=== PATIENT | female | born 1960 | race Caucasian/White ===

== ENCOUNTER 2018-02-14 09:00 | Outpatient (RCR) | payer BC, SELFPAY | END 2018-02-14 09:01 | disposition home or self-care (01) | LOC: PT 09:00 | PROVIDERS: Family Provider Nurse Practitioner Family; PCP Internal Medicine Adolescent Medicine; Visit Provider Neurological Surgery | DX: M96.1 Postlaminectomy syndrome, not elsewhere classified (principal); M53.3 Sacrococcygeal disorders, not elsewhere classified; M51.36 Other intervertebral disc degeneration, lumbar region; M79.605 Pain in left leg; G62.9 Polyneuropathy, unspecified | CPT/HCPCS: 97010; 97014; 97033; 97110; 97140; 97164; G0283 ==

== ENCOUNTER → 2018-08-14 10:45 | Outpatient (CLI) | payer MEDICARE, BC, SELFPAY ==
--- NOTE | 2018-08-14 11:33 | CT_ITS ---
CT abdomen pelvis w con CLINICAL INDICATION: Epigastric pain, left-sided abdominal pain ITS.REASON: EPIGASTRIC PAIN ORDERING PHYSICIAN: Osmin Luna MD PATIENT AGE: 58 years COMPARISON: None TECHNIQUE: Axial images obtained with sagittal and coronal reformats. All CT scans at the facility use one or more dose reduction, viz: automated exposure control, ma/kV adjustment per patient size (including targeted exams where dose is matched to indication, i.e. head), or iterative reconstruction technique. PROCEDURE: Oral Contrast: Redicat IV Contrast: Isovue-370 . FINDINGS: No acute finding in the lung bases. The liver, spleen, adrenal glands, pancreas, and kidneys have an unremarkable appearance. No intestinal obstruction or free air. Unremarkable appendix. No evidence of diverticulitis. No inflammatory changes evident within the abdomen or pelvis. No pelvic mass abnormal fluid collection or focal inflammatory change of the pelvis. Small hyperdensity is present in both adnexal regions and could be due to prior tubal ligation. Prior posterior fusion at L5 and S1. No acute bony findings. IMPRESSION: Negative CT abdomen pelvis with no acute findings
== END ==
PROVIDERS: Family Provider Nurse Practitioner Family; PCP Internal Medicine Adolescent Medicine; Visit Provider Internal Medicine Adolescent Medicine
DX: R10.13 Epigastric pain (principal)
CPT/HCPCS: 74177; Q9967

== ENCOUNTER → 2018-09-25 08:46 | Outpatient (CLI) | payer MEDICARE, BC, SELFPAY ==
--- NOTE | 2018-09-25 08:50 | US_ITS ---
US gallbladder HISTORY: ITS.REASON: abdominal pain ORDERING PHYSICIAN: Donald Quinonez MD PATIENT AGE: 58 years Comparison: None FINDINGS: PANCREAS: Unremarkable. No obvious mass or abnormal fluid collection. No ductal dilatation LIVER: No focal liver lesions demonstrated. Homogeneous echogenicity. No intrahepatic biliary ductal dilatation evident RIGHT KIDNEY: Unremarkable. Normal size and echogenicity. No hydronephrosis GALLBLADDER: No gallstones, gallbladder wall thickening, pericholecystic fluid, or biliary dilatation. There is a small amount of sludge versus concentrated bile within the gallbladder. IMPRESSION: Small amount sludge versus concentrated bile of questionable clinical significance otherwise negative right upper quadrant ultrasound
--- NOTE | 2018-09-25 08:50 | FL_ITS ---
FL upper GI small bowel HISTORY: Generalized abdominal pain with nausea and weight loss ITS.REASON: abdominal pain ORDERING PHYSICIAN: Donald Quinonez MD PATIENT AGE: 58 years Comparison: None FINDINGS: The esophagus, stomach, and duodenum have an unremarkable appearance. There is no evidence of hiatal hernia. No ulcer or mass evident. No mucosal abnormalities apparent. There is normal peristalsis. The duodenal C-loop is nondisplaced. Examination the small bowel is unremarkable. No obstructing lesions masses or mucosal abnormalities are evident. Spot views of the terminal ileum are unremarkable. FLUOROSCOPY TIME : 2 minutes and 53 seconds. IMPRESSION: Negative upper GI and small bowel follow-through
== END ==
PROVIDERS: PCP Internal Medicine Adolescent Medicine; Visit Provider Surgery
DX: R10.9 Unspecified abdominal pain (principal)
CPT/HCPCS: 74245; 76705

== ENCOUNTER → 2018-11-19 11:40 | Outpatient (CLI) | payer MEDICARE, BC, SELFPAY ==
[2018-11-21 16:19] LABS: H. pylori Breath Test Negative (Negative)
== END ==
PROVIDERS: Visit Provider Surgery
DX: B96.81 Helicobacter pylori [H. pylori] as the cause of diseases classified elsewhere (principal); K29.70 Gastritis, unspecified, without bleeding
CPT/HCPCS: 83013

== ENCOUNTER → 2020-09-01 09:19 | Outpatient (CLI) | payer MEDICARE, SELFPAY ==
--- NOTE | 2020-09-01 09:44 | ECG_ITS ---
APPROVED REPORT Exam: Resting ECG HR:55 bpm ECG Measurements Heart Rate 55 AXES ND 132 P 61 QRSd 80 QRS 7 QT 404 T 31 QTc 386 Conclusion Sinus bradycardia Left atrial abnormality Borderline ECG Electronically signed by : Osmin Luna, 09/06/2020 09:53:54
[2020-09-01 09:54] LABS: Basophils # 0.1 K/mm3 (0-0.2); Basophils % 0.7 % (0.1-2.0); Eosinophils # 0.2 K/mm3 (0.0-0.4); Eosinophils % 1.9 % (0.1-12.0); Hematocrit 44.9 % (37.0-47.0); Hemoglobin 13.8 g/dL (12.2-16.2); Lymphocytes # 2.7 K/mm3 (0.7-4.5); Lymphocytes % 32.6 % (10-50); Mean Corpuscular HGB Conc 30.8 g/dL (31.8-35.4); Mean Corpuscular Hemoglobin 28.5 pg (27.0-31.2); Mean Corpuscular Volume 92.5 fl (81-99); Mean Platelet Volume 6.8 fl (7.4-10.4); Monocytes # 0.5 K/mm3 (0.1-1.0); Monocytes % 5.6 % (1.7-9.3); Neutrophils % 59.1 % (37.0-80.0); Platelet Count 354 K/mm3 (142-424); Red Blood Count 4.85 M/mm3 (4.20-5.40); Red Cell Distribution Width 12.9 % (11.5-17.5); White Blood Count 8.4 K/mm3 (4.8-10.8)
[2020-09-01 10:12] LABS: Hemoglobin A1C 9.3 % (4.0-6.0)
[2020-09-01 12:26] LABS: Chloride 100 mmol/L (98-107)
[2020-09-01 12:27] LABS: Potassium 4.6 mmoL/L (3.5-5.1); Sodium 137 mmol/L (136-145)
[2020-09-01 12:29] LABS: Alanine Aminotransferase 14 U/L (12-78); Albumin Level 4.4 g/dl (3.5-5.0); Albumin/Globulin Ratio 1.8 (1.1-1.8); Alkaline Phosphatase 71 U/L (38-126); Aspartate Amino Transferase 18 U/L (14-36); Bilirubin,Total 0.4 mg/dl (0.2-1.3); Blood Urea Nitrogen 23 mg/dl (7-17); Estimated Glomerular Filt Rate 50 ml/min (>60); GFR (African American) 61 ML/MIN (>60); Globulin 2.5 g/dL (1.3-3.2); Total Protein,Serum 6.9 g/dl (6.3-8.2)
[2020-09-01 12:30] LABS: Anion Gap 12.6 mEq/L (5-15); Calcium 9.7 mg/dl (8.4-10.2); Carbon Dioxide 29 mmol/L (22.0-30.0); Chol/HDL Ratio 2.7 (1-3.5); Cholesterol 202 mg/dl (140-200); Glucose 183 mg/dl (74-100); HDL Cholesterol 74 mg/dl (40-60); Triglycerides 124 mg/dl (30-150); VLDL Cholesterol 25 mg/dL (0-40)
[2020-09-01 12:42] LABS: Direct LDL Cholesterol 107.59 mg/dL (100-129)
[2020-09-01 12:44] LABS: 25-OH Vitamin D, Total 82.7 ng/mL (30-100)
[2020-09-01 13:00] LABS: Thyroid Stimulating Hormone 5.97 uIU/mL (0.465-4.68)
== END ==
PROVIDERS: Visit Provider Nurse Practitioner Family
DX: I25.10 Atherosclerotic heart disease of native coronary artery without angina pectoris (principal); R53.83 Other fatigue; I10 Essential (primary) hypertension; E03.9 Hypothyroidism, unspecified; E11.29 Type 2 diabetes mellitus with other diabetic kidney complication; E78.5 Hyperlipidemia, unspecified; M54.9 Dorsalgia, unspecified
CPT/HCPCS: 36415; 80053; 80061; 82306; 83036; 84443; 85025; 93005

== ENCOUNTER → 2020-09-18 10:17 | Outpatient (CLI) | payer MEDICARE, SELFPAY ==
[2020-09-23 03:13] LABS: H. pylori Breath Test Negative (Negative)
== END ==
PROVIDERS: Visit Provider Internal Medicine Adolescent Medicine
DX: K21.9 Gastro-esophageal reflux disease without esophagitis (principal)
CPT/HCPCS: 83013

== ENCOUNTER → 2020-10-06 09:53 | Outpatient (CLI) | payer MEDICARE, SELFPAY ==
--- NOTE | 2020-10-06 09:57 | NM_ITS ---
PROCEDURE: NM GASTRIC EMPTYING STUDY CLINICAL INDICATION: GERD,ABD PAIN COMPARISON: No exams were available for comparison TECHNIQUE: Dose 0.52 mCi technetium sulfur colloid FINDINGS: Time activity curve is generated following oral ingestion of radial labeled meal. The 1/2 emptying time is upper limits of normal at 90 minutes. Images submitted show no obvious reflux. IMPRESSION: Gastric emptying time upper limits of normal Dictated by: Ian Jospeh MD 10/06/2020 16:15 Ian Joseph MD in [place] 10/06/2020 16:15
--- NOTE | 2020-10-06 10:24 | HMH.ITSHM ---
Current Home Medications as stated by this patient Mariana Villaseñor or claims representative. []NITRO METHOCARBAMOL METFORMIN LOVASTATIN ATENOLOL ASA LISINOPRIL LEVOTHYROXINE GABAPENTIN EMPAGLIFLOZIN
== END ==
PROVIDERS: PCP Internal Medicine Adolescent Medicine; Visit Provider Internal Medicine Adolescent Medicine
DX: R10.9 Unspecified abdominal pain (principal); K21.9 Gastro-esophageal reflux disease without esophagitis
CPT/HCPCS: 78264; A9541

== ENCOUNTER → 2020-10-09 09:39 | Outpatient (CLI) | payer MEDICARE, SELFPAY ==
--- NOTE | 2020-10-09 09:44 | FL_ITS ---
PROCEDURE: FL SMALL BOWEL FOLLOW THROUGH CLINICAL INDICATION: GERD WITHOUT ESOPHAGITIS,ABD PAIN Bloating COMPARISON: DX,RF UGISB FL upper GI small bowel from 09/25/2018 TECHNIQUE: FLUOROSCOPY TIME : 1 minutes 35 seconds FINDINGS: A preliminary market consultant film shows a nondiagnostic bowel gas pattern with scattered stool and gas in the ascending: And splenic flexure. No significant small bowel dilatation is noted. There are metallic screws and laminectomy defects at the L5-S1 level from previous fusion procedure. The initial overhead film following ingestion of barium shows a grossly normal appearing stomach and descending duodenum. The 15 minutes film shows progression of barium through the jejunum to the mid ileum. The fold pattern appears normal. There is no abnormal distortion or displacement of small bowel loops. At 30 minutes there is barium opacifying the terminal ileum which appears normal. Barium mixed with stool seen in the ascending colon and hepatic flexure. A small amount of Gastrografin was added to the barium which probably partially accounts for the rather rapid transit of barium through the small bowel. Fluoroscopy show no tenderness over the terminal ileum. There was mild tenderness to palpation in the upper mid abdomen. However there is no abnormal distortion or displacement of small bowel loops. IMPRESSION: Somewhat rapid transit of barium through the small bowel but no significant small bowel abnormality is identified. Dictated by: Dr. Malachi Cano MD 10/09/2020 11:46 Dr. Malachi Cano MD in [place] 10/09/2020 11:46
== END ==
PROVIDERS: PCP Internal Medicine Adolescent Medicine; Visit Provider Internal Medicine Adolescent Medicine
DX: R10.9 Unspecified abdominal pain (principal); K21.9 Gastro-esophageal reflux disease without esophagitis
CPT/HCPCS: 74250

== ENCOUNTER 2020-10-13 09:00 | Outpatient (RCR) | payer MEDICARE, SELFPAY | END 2020-10-13 10:02 | disposition home or self-care (01) | LOC: PT 09:00 | PROVIDERS: PCP Internal Medicine Adolescent Medicine; Visit Provider Podiatrist Foot & Ankle Surgery | DX: M77.31 Calcaneal spur, right foot (principal) | CPT/HCPCS: 97010; 97014; 97035; 97110; 97140; 97163; 97164; G0283 ==

== ENCOUNTER 2020-10-13 10:00 | Outpatient (RCR) | payer MEDICARE, SELFPAY | END 2020-10-13 11:02 | disposition home or self-care (01) | LOC: PT 10:00 | PROVIDERS: PCP Internal Medicine Adolescent Medicine; Visit Provider Orthopaedic Surgery | DX: M54.2 Cervicalgia (principal); M25.512 Pain in left shoulder; M25.511 Pain in right shoulder | CPT/HCPCS: 20560; 20561; 97010; 97014; 97035; 97110; 97163; 97164; G0283 ==

== ENCOUNTER → 2020-10-22 13:26 | Outpatient (CLI) | payer MEDICARE, SELFPAY ==
[2020-10-22 16:13] LABS: Coronavirus 19 IgG Antibody Negative (Negative); Coronavirus 19 IgM Antibody Negative (Negative)
== END ==
PROVIDERS: PCP Internal Medicine Adolescent Medicine; Visit Provider Internal Medicine Gastroenterology
DX: Z01.818 Encounter for other preprocedural examination (principal); Z13.810 Encounter for screening for upper gastrointestinal disorder
CPT/HCPCS: 36415; 86328

== ENCOUNTER 2020-10-23 10:24 | Day surgery (SDC) | payer MEDICARE, SELFPAY ==
[2020-10-22 12:45] VITALS: BP 135/95; PULSE 57; RESP 16; O2SAT 99
[2020-10-22 12:49] VITALS: BMI 28.3
[2020-10-23 11:16] VITALS: BP 147/62; PULSE 61; RESP 18; TEMP 36.1; O2SAT 100
[2020-10-23 11:57] VITALS: O2SAT 97
[2020-10-23 12:01] LABS: POC Glucose,Bedside 121 (70-110)
--- NOTE | 2020-10-23 12:05 | HMH.ANESCL ---
[facility] Anesthesia Checklist - Patient Identification Patient Identification: Arm Band - Structural Data Admitted From: Home Planned Operative Procedure/s: egd Consent for Planned Operative Procedure(s) Verified: Yes Verified Documents: Surgical Consent, History and Physical - NPO Status Verified Time NPO: 00:00 - Additional verifications Anesthesia Reactions: No - Airway Assessment C-Spine Mobility Assessed: Yes (mp2) TMJ Mobility Assessed: Yes Dentition: Poor Dentition - Neurological Assessment Level of Consciousness: Awake, Alert - Anesthesia Plan Anesthesia Risk discussed: Yes Anesthesia Plan: Verified ASA Class: III Anesthesia Type: MAC [facility] History I have reviewed the patient's past medical history: Yes Medical History: Reports:: Coronary Artery Disease, Diabetes Mellitus Type 2, Hyperlipidemia, Hypertension, Palpitations Denies:: Cancer, Diabetes Mellitus Type 1, Internal Pacemaker, Lung Disease, MRSA, Seizures *Have you ever received a pneumonia vaccine?: No *Have you received a flu vaccine this season?: Yes Other Medical History: Reports: Hypothyroidism, Thyroid Disease Anesthesia experience/problems:: nac Laterality Cases: Right: Carpal Tunnel Release Other Surgeries: Yes: CABG, (x3), Open Heart Surgery, Other (lumbar fusion, L left). No: Pacemaker Amputation: No Fractures: No - *Social History Last grade of school completed: GED Smoking Status: Never smoker Alcohol Intake: never Substance Use Type: denies use *Occupational Status:: retired, disabled Housing: house Household Members: spouse *Travel in the last 8 weeks: None Family Hx:: Cancer
--- NOTE | 2020-10-23 12:14 | HMH.PROC ---
[facility] Procedure Note Procedure Note:: Upper Endoscopy Procedure Report: Esophagogastroduodenoscopy with cold biopsies Endoscopost: Rubén Overton II, MD Referring Physician: Osmin Luna M.D. Date of Procedure: October 23, 2020 Equipment: Olympus GIF 180 standard upper endoscope Sedation: MAC sedation Indications: Mrs. Villaseñor is a 60-year-old female with dyspepsia. She has epigastric and generalized abdominal pain and discomfort. She has had moderate bloating, belching, nausea and early satiety. She has some pyrosis. She reports no dysphagia, heartburn or melena. She has had no hematochezia. She has lost between 5 and 10 pounds. She does state that her bowel movements are thin and she has some excessive wiping. She reports no stress. She has had no prior gallbladder testing. She reports no family history of colon cancer. She did have a colonoscopy 3 years ago (2016) in [place] and had a single polyp (tubular adenoma x1) removed. Procedure: Prior to the procedure, a history and physical exam was performed, and patient's medications and allergies were reviewed. The risks, benefits and alternatives of the sedation and procedure were discussed with the patient. All questions were answered and informed consent was obtained. The patient was brought to the procedure room. Patient identification and proposed procedure were verified by the physician and the nurse. The patient was placed in a left lateral decubitus position and the scope was passed under direct vision. Throughout the procedure, the patient's blood pressure, pulse, and oxygen saturations were monitored continuously. The upper GI endoscopy was accomplished without difficulty. The patient tolerated the procedure well. Findings: The scope was passed directly into the upper esophagus and advanced to the third portion of the duodenum. The post bulbar duodenum and duodenal bulb were normal with normal mucosa and conniventes. The scope was withdrawn through a normal duodenal bulb and pylorus into the stomach. There was bile reflux with linear reactive gastropathy of the antrum and body of the stomach. The remainder of the antrum, body and fundus of the stomach were grossly normal. Upon retroflexion there was no hiatal hernia. 2 biopsies were taken in the antrum and along the lesser curvature for histology to rule out gastritis and/or H pylori. The scope was then withdrawn into the esophagus. There was no evidence of reflux esophagitis or Light's. There was a serrated Z-line and evidence of mild esophageal dysmotility. The remainder of the esophageal mucosa was normal. Impression: 1. Nonerosive GERD with mild esophageal dysmotility 2. Bile reflux with linear reactive gastropathy Plan: I will follow-up the biopsies. The patient does have functional dyspepsia. We will discuss dietary measures, fiber bowel regimen and additional treatment options.
[2020-10-23 12:15] VITALS: BP 115/55; PULSE 66; RESP 16; TEMP 36.1; O2SAT 98
[2020-10-23 12:25] VITALS: BP 120/56; PULSE 57; RESP 16; O2SAT 100
[2020-10-23 12:35] VITALS: BP 125/70; PULSE 67; RESP 16; O2SAT 97
[2020-10-23 13:08] VITALS: BP 158/69; PULSE 58; RESP 16; O2SAT 99
== END 2020-10-23 13:08 | disposition home or self-care (01) ==
LOC: OUTP 10:25
PROVIDERS: PCP Internal Medicine Adolescent Medicine; Visit Provider Internal Medicine Gastroenterology
PROC: 0DJ08ZZ Inspection of Upper Intestinal Tract, Via Natural or Artificial Opening Endoscopic (ICD-10-PCS; CPT 43235; principal; 2020-10-23 11:30)
DX: K21.9 Gastro-esophageal reflux disease without esophagitis (principal); K22.4 Dyskinesia of esophagus; K31.9 Disease of stomach and duodenum, unspecified; Z86.010 Personal history of colon polyps; I25.10 Atherosclerotic heart disease of native coronary artery without angina pectoris; E11.9 Type 2 diabetes mellitus without complications; I10 Essential (primary) hypertension; E78.5 Hyperlipidemia, unspecified; R00.2 Palpitations
CPT/HCPCS: 43239; 82962; 88305

== ENCOUNTER → 2021-01-25 15:25 | Outpatient (POV) | payer MEDICARE, SELFPAY | PROVIDERS: Visit Provider Nurse Practitioner Family | DX: Z00.00 Encounter for general adult medical examination without abnormal findings (principal) ==

== ENCOUNTER → 2021-04-26 15:33 | Outpatient (POV) | payer MEDICARE, SELFPAY | PROVIDERS: Visit Provider Nurse Practitioner Family | DX: Z00.00 Encounter for general adult medical examination without abnormal findings (principal) ==

== ENCOUNTER → 2021-10-27 08:05 | Outpatient (CLI) | payer MEDICARE, SELFPAY ==
--- NOTE | 2021-10-27 08:06 | CT_ITS ---
PROCEDURE: CT SINUS WO CON CLINICAL HISTORY: sinusitis Sinus drainage COMPARISON: No exams were available for comparison TECHNIQUE: Axial images obtained with sagittal and coronal reformats. All CT scans at the facility use one or more dose reduction, viz: automated exposure control, ma/kV adjustment per patient size (including targeted exams where dose is matched to indication, i.e. head), or iterative reconstruction technique. FINDINGS: In the posterior aspect of the left ethmoid sinus there is a 4 mm soft tissue density which may be related to a small globule of mucus or small polyp or retention cyst. No sinus air-fluid level is evident. No significant mucosal thickening. There is mild leftward nasal septal deviation. The OMC is are patent. No mastoid effusion. The middle ears are aerated. Unremarkable TMJs and orbits. IMPRESSION: Small cyst or a globule of mucus in the left ethmoid sinus. No significant mucosal thickening or sinus air-fluid level. Leftward nasal septal deviation. Dictated by: Ian Joseph MD 10/28/2021 11:50 Ian Joseph MD in [place] 10/28/2021 11:50
== END ==
PROVIDERS: PCP Internal Medicine Adolescent Medicine; Visit Provider Student in an Organized Health Care Education/Training Program
DX: J32.9 Chronic sinusitis, unspecified (principal)
CPT/HCPCS: 70486

== ENCOUNTER → 2022-02-17 09:25 | Outpatient (CLI) | payer MEDICARE, SELFPAY ==
--- NOTE | 2022-02-17 09:25 | US_ITS ---
FINAL REPORT CLINICAL HISTORY: RUQ pain COMPARISON: 09/25/2018 FINDINGS: RIGHT UPPER QUADRANT ULTRASOUND: Ultrasound images of right upper quadrant were obtained. Limited images of the pancreas are obscured by bowel gas. There is mild fatty infiltration of the liver. There is a small amount of sludge in the gallbladder. The common duct is normal measuring 3 mm. Limited images of right kidney are unremarkable. IMPRESSION: Mild fatty liver. Reviewed, Interpreted and Dictated by Donald Koenig III, MD Transcribed by Marium Doyle Authenticated by Donald Koenig III, MD on 02/17/2022 10:59:07 AM [facility]
== END ==
PROVIDERS: PCP Internal Medicine Adolescent Medicine; Visit Provider Surgery
DX: R10.11 Right upper quadrant pain (principal)
CPT/HCPCS: 76705

== ENCOUNTER → 2022-02-28 10:10 | Outpatient (CLI) | payer MEDICARE, SELFPAY ==
--- NOTE | 2022-02-28 10:11 | NM_ITS ---
FINAL REPORT CLINICAL HISTORY: RUQ pain 10:30AM 8.35 MCI TC CHOLETEC ENSURE FINDINGS: Sequential anterior projection images of the abdomen were obtained after the intravenous injection of 8.35 mCi technetium 99m Choletec. There is normal uptake of radiotracer by the liver. The bile ducts are visualized by 30 minutes. Gallbladder activity is seen by 60 minutes. Bowel activity is noted by 60 minutes. After 1 hour, Ensure was ingested for calculation of gallbladder ejection fraction. The gallbladder ejection fraction is 7 %, which is abnormally depressed.. IMPRESSION: No evidence of cystic duct or bile duct obstruction. Abnormally depressed gallbladder ejection fraction. Reviewed, Interpreted and Dictated by Bautista Kilpatrick MD Transcribed by Vanesa Issa Authenticated by Bautista Kilpatrick MD on 02/28/2022 02:41:39 PM [facility]
--- NOTE | 2022-02-28 10:31 | HMH.ITSHM ---
Current Home Medications as stated by this patient Mariana Villaseñor or account representative. []GABAPENTIN METHOCABOME SYNTHROID EZEMBIL LOSTRAN JARDIENCE METFORMIN
== END ==
PROVIDERS: PCP Internal Medicine Adolescent Medicine; Visit Provider Surgery
DX: R10.11 Right upper quadrant pain (principal)
CPT/HCPCS: 78226; A9537

== ENCOUNTER → 2022-03-21 08:45 | Outpatient (CLI) | payer MEDICARE, SELFPAY | PROVIDERS: Visit Provider Internal Medicine | DX: Z01.812 Encounter for preprocedural laboratory examination (principal); Z11.52 Encounter for screening for COVID-19; Z13.810 Encounter for screening for upper gastrointestinal disorder | CPT/HCPCS: C9803; U0003; U0005 ==

== ENCOUNTER 2022-03-23 09:22 | Day surgery (SDC) | payer MEDICARE, SELFPAY ==
[2022-03-21 09:57] VITALS: BMI 28.3
[2022-03-23 10:05] VITALS: BP 155/75; PULSE 73; RESP 18; TEMP 36.1; O2SAT 97
[2022-03-23 10:24] LABS: POC Glucose,Bedside 136 (70-110)
[2022-03-23 11:29] VITALS: O2SAT 97
--- NOTE | 2022-03-23 11:38 | HMH.SCOPE ---
- Procedure: Date: 03/23/22 Patient Date of :: 1960 Procedure Performed:: EGD Indications:: The patient is a 61 year old who is being seen for intermittent abdominal pain, bloating, nausea symptoms. She has history of H.pylori gastritis treated and had clearance of infection by urease breath test. She has history of a gastric emptying study that was abnormal. A recent RUQ abdominal ultrasound demonstrated mild fatty liver and small amount of gallbladder sludge. Performing Provider:: Juan Holman MD Referring Provider:: Donald Quinonez MD Sedation:: See RN notes Procedure:: The gastroscope was gently passed through the incisoral orifice into the oral cavity and under direct visualization the esophagus was intubated. The endoscope was passed down the esophagus, through the stomach, and into the duodenum. Color, texture, mucosa, and anatomy of the esophagus, stomach, and duodenum were carefully examined with the scope. Findings:: Oropharynx: normal Esophagus: normal EG Junction: measured at 37 cm Cardia: normal Fundus: normal Body: Minimal gastritis. Biopsy obtained Antrum: Minimal gastritis. Biopsy obtained Duodenal bulb: normal Duodenum (second and third portion): normal Recommendations:: Await pathology results Recommend omeprazole 20 mg once daily x 4 weeks then take as needed Can try IBGard 1-2 capsules two to three times per day before meals Recommend trial of diet with smaller portions, lower roughage and fat content for possible gastroparesis Complications:: none Estimated blood obtained (mL): 0
[2022-03-23 11:40] VITALS: BP 135/70; PULSE 79; RESP 18; TEMP 36.2; O2SAT 97
--- NOTE | 2022-03-23 11:49 | P.PN_ITS ---
[facility] Anesthesia Checklist - Structural Data Admitted From: Home Planned Operative Procedure/s: egd Consent for Planned Operative Procedure(s) Verified: Yes - Additional verifications Anesthesia Reactions: No - Airway Assessment C-Spine Mobility Assessed: Yes TMJ Mobility Assessed: Yes Dentition: Dentures-good fit - Neurological Assessment Level of Consciousness: Awake, Alert, Appropriate - Anesthesia Plan Anesthesia Risk discussed: Yes Anesthesia Plan: Verified ASA Class: II Anesthesia Type: MAC [facility] History I have reviewed the patient's past medical history: Yes Medical History: Reports:: Coronary Artery Disease, Diabetes Mellitus Type 2, Hyperlipidemia, Hypertension, Palpitations Denies:: Cancer, Diabetes Mellitus Type 1, Internal Pacemaker, Lung Disease, MRSA, Seizures *Have you ever received a pneumonia vaccine?: No *Have you received a flu vaccine this season?: Yes Other Medical History: Reports: Hypothyroidism, Thyroid Disease Anesthesia experience/problems:: none Laterality Cases: Bilateral: Carpal Tunnel Release Other Surgeries: Yes: CABG, Colonoscopy, (x3), Open Heart Surgery, Other (lumbar fusion, L left). No: Pacemaker Amputation: No Fractures: No - *Social History Last grade of school completed: GED Smoking Status: Never smoker Alcohol Intake: never Substance Use Type: denies use *Occupational Status:: unemployed, disabled Housing: house Household Members: spouse *Travel in the last 8 weeks: None Family Hx:: Cancer
[2022-03-23 11:50] VITALS: BP 145/72; PULSE 77; RESP 16; O2SAT 97
[2022-03-23 12:00] VITALS: BP 158/78; PULSE 67; RESP 16; O2SAT 98
[2022-03-23 12:28] VITALS: BP 145/71; PULSE 69; RESP 16; O2SAT 98
== END 2022-03-23 12:28 | disposition home or self-care (01) ==
LOC: OUTP 09:23
PROVIDERS: PCP Internal Medicine Adolescent Medicine; Visit Provider Internal Medicine
PROC: 0DJ08ZZ Inspection of Upper Intestinal Tract, Via Natural or Artificial Opening Endoscopic (ICD-10-PCS; CPT 43235; principal; 2022-03-23 10:30)
DX: K29.70 Gastritis, unspecified, without bleeding (principal); I25.10 Atherosclerotic heart disease of native coronary artery without angina pectoris; E11.9 Type 2 diabetes mellitus without complications; E78.5 Hyperlipidemia, unspecified; R00.2 Palpitations; E03.9 Hypothyroidism, unspecified; Z95.1 Presence of aortocoronary bypass graft; Z80.9 Family history of malignant neoplasm, unspecified; Z88.4 Allergy status to anesthetic agent; Z88.8 Allergy status to other drugs, medicaments and biological substances
CPT/HCPCS: 43239; 82962; 88305

== ENCOUNTER → 2022-07-04 12:07 | Outpatient (CLI) | payer MEDICARE, SELFPAY ==
--- NOTE | 2022-07-04 12:11 | XR_ITS ---
FINAL REPORT CLINICAL HISTORY: CELLULITIES OF RIGHT MIDDLE FINGER FINDINGS: RIGHT HAND 3 views of the right hand were obtained. There is no acute fracture or dislocation. Visualized joint spaces are normally aligned. There is mild degenerative change of the hand and wrist. There is a small calcification of the 3rd PIP joint. IMPRESSION: Degenerative change with no o acute bony abnormality. Reviewed, Interpreted and Dictated by Donald Koenig III, MD Transcribed by Nelida Proctor Authenticated and [facility]
== END ==
PROVIDERS: PCP Internal Medicine Adolescent Medicine; Visit Provider Internal Medicine Adolescent Medicine
DX: L03.011 Cellulitis of right finger (principal)
CPT/HCPCS: 73130

== ENCOUNTER → 2022-10-18 09:03 | Outpatient (CLI) | payer MEDICARE, SELFPAY ==
--- NOTE | 2022-10-18 09:03 | NM_ITS ---
FINAL REPORT CLINICAL HISTORY: Right upper quad pain 9:20AM 8.52 MCI TC CHOLETEC 1.5 MCG CCK NO PAIN WITH CCK COMPARISON: February 2022 FINDINGS: HEPATOBILIARY SCAN WITH CCK INJECTION Following intravenous administration of approximately 8.52 of technetium Choletec, multiple scintigraphic images were obtained. The hepatic parenchymal phase shows homogeneous distribution of the tracer throughout the liver. Prompt appearance of tracer is noted in the intrahepatic and extrahepatic biliary systems. The gallbladder visualizes normal. Biliary to bowel transit is within normal limits. Following intravenous injection of 1.5 mcg of CCK, gallbladder ejection fraction is estimated to be 4 %. IMPRESSION: Abnormally low gallbladder ejection fraction of 4 %. Reviewed, Interpreted and Dictated by Sisi Huggisn MD Transcribed by Mukul Ackerman Authenticated and [facility]
--- NOTE | 2022-10-18 09:22 | HMH.ITSHM ---
Current Home Medications as stated by this patient Mariana Villaseñor or insurance claims representative. []OMEPRAZOLE NITRO METHOCARBAMOL METFORMIN LOVASTATIN LISINOPRIL LEVOTHYROXINE GLIMEPIRIDE GABAPENTIN EZETIMIBE DULOXETINE ASA
== END ==
PROVIDERS: PCP Internal Medicine Adolescent Medicine; Visit Provider Surgery
DX: K82.8 Other specified diseases of gallbladder (principal)
CPT/HCPCS: 78227; A9537; J2805

== ENCOUNTER → 2022-11-10 09:57 | Outpatient (CLI) | payer MEDICARE, SELFPAY ==
--- NOTE | 2022-11-10 10:38 | ECG_ITS ---
APPROVED REPORT Exam: Resting ECG HR:74 bpm ECG Measurements Heart Rate 74 AXES OK 136 P 79 QRSd 78 QRS 76 QT 363 T 69 QTc 390 Conclusion SINUS RHYTHM LOW QRS VOLTAGE IN PRECORDIAL LEADS [QRS DEFLECTION < 1.0 mV IN CHEST LEADS] NONSPECIFIC T-WAVE ABNORMALITY BORDERLINE ECG UNCONFIRMED REPORT Electronically signed by : Osmin Luna MD 11/10/2022 20:18:05
[2022-11-10 11:08] LABS: Basophils % 0.4 % (0.1-2.0); Eosinophils # 0.1 K/mm3 (0.0-0.4); Eosinophils % 2.3 % (0.1-12.0); Hematocrit 41.3 % (37.0-47.0); Hemoglobin 12.9 g/dL (12.2-16.2); Lymphocytes # 1.9 K/mm3 (0.7-4.5); Lymphocytes % 30.6 % (10-50); Mean Corpuscular HGB Conc 31.2 g/dL (31.8-35.4); Mean Corpuscular Hemoglobin 29.3 pg (27.0-31.2); Mean Platelet Volume 7.7 fl (7.4-10.4); Monocytes # 0.3 K/mm3 (0.1-1.0); Monocytes % 5.5 % (1.7-9.3); Neutrophils # 3.8 K/mm3 (1.8-7.8); Neutrophils % 61.1 % (37.0-80.0); Platelet Count 363 K/mm3 (142-424); Red Blood Count 4.39 M/mm3 (4.20-5.40); Red Cell Distribution Width 14.5 % (11.5-17.5); White Blood Count 6.2 K/mm3 (4.8-10.8)
[2022-11-10 11:32] LABS: Alanine Aminotransferase 22 U/L (12-78); Albumin Level 4.2 g/dl (3.5-5.0); Albumin/Globulin Ratio 1.8 (1.1-1.8); Alkaline Phosphatase 79 U/L (38-126); Anion Gap 11.1 mEq/L (5-15); Aspartate Amino Transferase 36 U/L (14-36); Bilirubin,Total 0.6 mg/dl (0.2-1.3); Blood Urea Nitrogen 23 mg/dl (7-17); Calcium 9.2 mg/dl (8.4-10.2); Carbon Dioxide 27 mmol/L (22.0-30.0); Chloride 107 mmol/L (98-107); Estimated Glomerular Filt Rate 50 ml/min (>60); GFR (African American) 61 ML/MIN (>60); Globulin 2.4 g/dL (1.3-3.2); Glucose 101 mg/dl (74-100); Potassium 5.1 mmoL/L (3.5-5.1); Sodium 140 mmol/L (136-145); Total Protein,Serum 6.6 g/dl (6.3-8.2)
== END ==
PROVIDERS: PCP Internal Medicine Adolescent Medicine; Visit Provider Surgery
DX: K82.8 Other specified diseases of gallbladder (principal); Z01.818 Encounter for other preprocedural examination
CPT/HCPCS: 36415; 80053; 85025; 93005

== ENCOUNTER 2022-11-14 07:07 | Day surgery (SDC) | payer MEDICARE, SELFPAY ==
[2022-11-11 09:36] VITALS: BMI 29.2
[2022-11-14] VITALS (14 sets, daily range): BP systolic 00–194; BP diastolic 00–85; PULSE 68–96; RESP 12–18; TEMP 36.3–43; O2SAT 92–99
[2022-11-14 07:37] LABS: POC Glucose,Bedside 162 (70-110)
--- NOTE | 2022-11-14 07:40 | P.PN_ITS ---
[facility] Disclaimer: The information contained in this section may have been updated after the patient was seen, as this information can be updated by other users. Medical History Diabetes HLD (hyperlipidemia) HTN (hypertension) Hypothyroid Surgical History History of back surgery History of carpal tunnel release History of section History of colonoscopy History of foot surgery History of open heart surgery Family History Other Family history of cancer Family history of heart disease Social History Smoking Status: Never smoker alcohol intake: never substance use type: denies use current occupational status: disabled Travel in the last 8 weeks: None household members: spouse housing: house current occupational exposures/hazards: No caffeine: Yes [facility] Anesthesia Checklist Patient Identification Patient Identification: Arm Band Structural Data Admitted From: Home Planned Operative Procedure/s: Laparoscopic Cholecystectomy Consent for Planned Operative Procedure(s) Verified: Yes Verified Documents: Surgical Consent and History and Physical NPO Status Verified Time NPO: 00:00 Additional verifications Anesthesia Reactions: No Hx Blood Transfusions: No Blood Transfusion Reaction: No Airway Assessment C-Spine Mobility Assessed: Yes TMJ Mobility Assessed: Yes Dentition: Good Dentition (upper dentures removed) Neurological Assessment Level of Consciousness: Awake and Alert Anesthesia Plan Anesthesia Risk discussed: Yes Anesthesia Plan: Verified ASA Class: III Anesthesia Type: General
--- NOTE | 2022-11-14 08:58 | EXP.OP.NOTE ---
Date of procedure: 11/14/22 Pre-op Diagnosis:: Gallbladder disease Post-op Diagnosis:: Same Procedure performed:: Laparoscopic cholecystectomy Surgeon:: Donald Quinonez MD Robot Programmer(s):: 9 PREPARATION SUPERVISOR FREEZING:: Sunny Gayle Anesthesia: DAVID Estimated blood loss (mL): 30 Operative findings:: She had a somewhat distended gallbladder mostly obscured with omental adhesions. Neck of the gallbladder tapered to cystic duct. Operative note:: Patient was taken to the operating room. She was given preoperative intravenous antibiotics. In the operating room she was placed in a supine position. General anesthesia was induced via endotracheal tube. Abdomen was prepped and draped in the standard surgical fashion. Subumbilical skin incision was made within her previous laparoscopy scar and while performing abdominal wall lift Veress needle was inserted. CO2 pneumoperitoneum was achieved to 15 mmHg. 11 mm optical trocar was inserted at the umbilicus. Intraperitoneal contents were visualized. She was positioned in reverse Trendelenburg left side down. A couple of 5 mm trochars were inserted in the right upper abdomen. 10 mm trocar was inserted in the epigastrium and a previous chest tube scar. Gallbladder was identified and grasped retracted anteriorly and superiorly over the dome of the liver. Omental adhesions were taken down from the gallbladder. Infundibulum/Pink's pouch the gallbladder was retracted anterior laterally. Prolonged blunt dissection was carried out at the neck of the gallbladder and a exposing a generous portion of the cystic duct. Cystic duct and cystic artery as well as a lymph node were identified. Cystic duct was isolated, multiply clipped, and sharply divided. The neck of the gallbladder tapered somewhat to the cystic duct. Cystic artery was coagulated with KARLI ultrasonic harmonic tavares and divided. Gallbladder was dissected free from the liver in a retrograde fashion using KARLI ultrasonic harmonic tavares removing the lymph node of Calot with the gallbladder. At the completion of the procedure the gallbladder was inspected on the back table to ensure that there was a single cystic duct which was assured. Gallbladder fossa was inspected for hemostasis which was assured. Limited irrigation was performed until clear. Trochars were removed the CO2 pneumoperitoneum was evacuated. Fascia at the umbilicus was closed with a single 0 Vicryl suture. Local anesthetic was infiltrated. Anterior rectus fascia at the epigastric site was closed with a 0 Vicryl. Skin incision was closed with 4-0 Monocryl in subcuticular fashion. Dermabond and dressings were applied. Condition: stable Disposition: PACU Complications:: None immediately apparent
--- NOTE | 2022-11-14 09:20 | P.PNANES_ITS ---
[facility] Anesthesia Record Part I Anesthesia Record I Intake, IV Amount: 600 Estimated blood loss (mL): 5 Urine output (mL): 0 Blood Pressure: 194/83 SaO2: 95 Pulse Rate: 96 Respiratory Rate: 14 Temperature: 97.5 F Patient is:: Drowsy, Nasal O2 and Stable Stable to PACU at:: 09:19
[2022-11-14 09:37] LABS: POC Glucose,Bedside 140 (70-110)
--- NOTE | 2022-11-15 07:40 | EXP.ANES.II ---
[facility] Anesthesia Record Part II Anesthesia Record Part II Discharge Time: 09:58 Destination: Surgical Day Care (OP Surgery) PACU nurse assessment reviewed?: Yes Patient Condition:: Good Anesthesia Complications:: None Swallowing reflex intact?: Yes Cyanosis?: No Blood Pressure: 166/63 Pulse Rate: 83 Temperature: 97.8 F Mental Status: Alert & Oriented Pain level:: 0 Nausea and/or vomitting:: None Intake, IV Amount: 0
[2022-11-15 07:41] VITALS: BP 166/63; PULSE 83; TEMP 36.6
== END 2022-11-14 11:00 | disposition home or self-care (01) ==
PROVIDERS: PCP Internal Medicine Adolescent Medicine; Visit Provider Surgery
PROC: 0FT44ZZ Resection of Gallbladder, Percutaneous Endoscopic Approach (ICD-10-PCS; CPT 47562; principal; 2022-11-14 08:45)
DX: K82.8 Other specified diseases of gallbladder (principal); E11.9 Type 2 diabetes mellitus without complications; Z79.899 Other long term (current) drug therapy
CPT/HCPCS: 47562; 82962; 88304; 96374; J2405

== ENCOUNTER → 2023-05-03 10:55 | Outpatient (CLI) | payer MEDICARE, SELFPAY ==
--- NOTE | 2023-05-03 10:59 | XR_ITS ---
FINAL REPORT CLINICAL HISTORY: pain, swelling, no known trauma FINDINGS: Three views of the right knee reveal no evidence of fracture or dislocation. The bony alignment is normal. Mild degenerative change is present. There is no evidence of joint effusion. No localized soft tissue abnormality is identified. IMPRESSION: No acute abnormality identified. Mild degenerative changes present. Reviewed, Interpreted and Dictated by Donald Koenig III, MD Transcribed by Nadeen Albright Authenticated and [facility]
== END ==
PROVIDERS: PCP Nurse Practitioner Family; Visit Provider Nurse Practitioner Family
DX: M25.561 Pain in right knee (principal); G89.29 Other chronic pain
CPT/HCPCS: 73562

== ENCOUNTER → 2023-05-04 09:56 | Outpatient (CLI) | payer MEDICARE, SELFPAY ==
[2023-05-04 11:13] LABS: Blood Urea Nitrogen 19 mg/dl (7-17); Estimated Glomerular Filt Rate 50 ml/min (>60); GFR (African American) 61 ML/MIN (>60)
== END ==
PROVIDERS: PCP Nurse Practitioner Family; Visit Provider Surgery
DX: R10.11 Right upper quadrant pain (principal); Z01.812 Encounter for preprocedural laboratory examination
CPT/HCPCS: 36415; 82565; 84520

== ENCOUNTER → 2023-05-12 09:20 | Outpatient (CLI) | payer MEDICARE, SELFPAY ==
--- NOTE | 2023-05-12 09:20 | CT_ITS ---
FINAL REPORT TECHNIQUE: After the administration of oral and intravenous contrast, axial images were obtained through the abdomen and pelvis by computed tomography. The study was performed with techniques to keep radiation dose as low as reasonably achievable, (ALARA). Individual dose reduction techniques using automated exposure control or adjustment of mA and/or kV according to the patient's size were employed. CLINICAL HISTORY: abdominal pain COMPARISON: 08/14/2018 FINDINGS: Abdomen: The lung bases are clear. The liver parenchyma is remarkable for mild fatty infiltration. The gallbladder has been surgically resected. The spleen, pancreas, adrenals and kidneys appear unremarkable. The aorta is normal in caliber. There is no free fluid or adenopathy. There is extensive streak artifact in the lower abdomen and pelvis secondary to metallic lumbar orthopedic implants. The colon is generally decompressed which accentuates the mucosa in the descending and sigmoid segments of the colon. No definite focal abnormality is identified. Pelvis: The appendix is not identified. The urinary bladder is unremarkable. There is no free fluid or adenopathy. IMPRESSION: Mild fatty infiltration of the liver. Gallbladder is absent. The colon is generally decompressed which accentuates the mucosa in the descending and sigmoid segments of the colon. However no definite focal abnormality is identified. Reviewed, Interpreted and Dictated by Bautista Kilpatrick MD Transcribed by Nadeen Albright Authenticated and . [facility]
== END ==
PROVIDERS: PCP Nurse Practitioner Family; Visit Provider Surgery
DX: R10.11 Right upper quadrant pain (principal)
CPT/HCPCS: 74177; Q9967

== ENCOUNTER → 2023-07-04 10:49 | Outpatient (CLI) | payer MEDICARE, SELFPAY ==
--- NOTE | 2023-07-04 10:54 | XR_ITS ---
FINAL REPORT CLINICAL HISTORY: CHEST PAIN FINDINGS: TWO-VIEW CHEST The heart size is normal. The patient is status post median sternotomy. The lungs are clear. There is no pneumothorax. IMPRESSION: No acute cardiopulmonary process. Reviewed, Interpreted and Dictated by Donald Koenig III, MD Transcribed by Marium Doyle Authenticated and [facility]
== END ==
PROVIDERS: PCP Nurse Practitioner Family; Visit Provider Nurse Practitioner Family
DX: R07.89 Other chest pain (principal)
CPT/HCPCS: 71046

== ENCOUNTER 2023-07-06 10:00 | Outpatient (RCR) | payer MEDICARE, SELFPAY ==
--- NOTE | 2023-05-19 14:52 | HMH.PTOPEV ---
PT Outpatient Evaluation Rehab PT Outpatient Evaluation Start: 05/19/23 13:50 Freq: Status: Active Protocol: Document 05/19/23 13:55 DOUGALS (Rec: 05/19/23 14:52 TOMASLEONILA [id number]) E-signed By Jenny Atkinson, PT Outpatient Therapy Subjective History Subjective History Pt presents to the PT clinic with reports of R knee pain that began ~3 weeks ago. Pt reports that she does not remember a specific incident that occured. Pt reports that she noticed a fluid pouch on the inside of her R knee that began ~ 6 months ago. Pt reports difficulty with trying to get up off the floor, when she places pressure on the front of her knee it causes stinging pain into the outside of her knee into her calf. Pt reports that she also feels pain throughout the front of her knee that goes across to the inside/outside. Pt reports that it is tender to touch the outside of her knee and calf. Pt reports she had a x- ray that revealed arthritis throughout her knee. Pt reports that she has tried heat, ice and OTC medications at home with little relief. PMH: open heart surgery, HTN, diabetes, lumbar fusion Chief Complaint Pain,Gives out/Unstable, Paresthesia,Weakness Symptom Type Ache,Throb,Burning,Numbness, Tingling,Shooting Symptoms Relieved By Heat,Ice,OTC Meds Symptoms Aggravated By Bending/Stooping,Physical Activity,Twisting,Lifting Prior Functional Limitations None Current Functional Limitations Lifting,Squatting,Recreation Activity,Stairs,Bending/ Stooping Symptom Description Activity Dependent Level of pain today (0-10) 2 Pain scale - at its best (0-10) 0 Pain scale - at its worst (0-10) 9 Hip/Knee Eval Gait Observation General Gait Pattern Observation Antalgic Gait,Decrease Weight Bear (R) Assistive Device Assistive Devices None / NA Palpatio
--- NOTE | 2023-06-19 11:52 | HMH.RHREAS ---
Rehab Reassessment Rehab OP Re-assessment Start: 05/19/23 13:50 Freq: Status: Active Protocol: Document 06/19/23 11:36 SASCHATooJERZY (Rec: 06/19/23 11:52 PHORJERZY [id number]) E-signed By Efren Beach, PT Rehab Re-assessment Subjective Subjective Pt reports pain at rest currently 3/10, but continues to be 5-6/10 at least with transfers to/from the floor. Pain continues to be shooting , stinging, and burning on the lateral R LE from mid- thigh to mid-calf area. Objective Objective Notes MMT R LE: HIP FLEX 3+/5, HIP ABD 3+/5, HIP ADD 4/5, KNEE FLEX 4/5, KNEE EXT 4/5, ANKLE DF 4+/5, ANKLE INV 5/5, ANKLE EVER 5/5, ANKLE PF 5/5. Pain: At worst 6/10 with transfers, especially from floor to standing. ADL: Transfers to kneeling remain painful and difficult for all household care and recreational activites. Assessment Progress Assessment Slower Than Expected Assessment Notes Pt is showing mild improvements in strength in the R LE overall, but continues to have significant pain with transfers at home. She continues to c/o similar pain at this time that she did on her initial eval. She continues to need skilled interventions to return to prior level of function. Patient goals met none Goals Not Met ST,2,3,4,5 LT,2,3,4 ,5,6 Revised Goals none Plan Plan Continue per initial POC. Frequency of Therapy 2 x/wk Duration of therapy 4 wks Time and Billing Re-Eval Time 14 Re-Eval Billing Units 1 PHYSICIAN CERTIFICATION: I certify the specified therapy services for Mariana Villaseñor are required, authorized, and reviewed every 30 days.
== END 2023-07-06 10:05 | disposition home or self-care (01) ==
LOC: PT 10:00
PROVIDERS: PCP Nurse Practitioner Family; Visit Provider Nurse Practitioner Family
DX: M25.561 Pain in right knee (principal)
CPT/HCPCS: 97010; 97014; 97035; 97110; 97163; 97164; 97530; G0283

== ENCOUNTER → 2023-07-12 15:25 | Outpatient (CLI) | payer MEDICARE, SELFPAY ==
--- NOTE | 2023-07-12 15:29 | US_ITS ---
PROCEDURE INFORMATION: Exam: US Left Breast, Complete Exam date and time: 07/12/2023 3:33 PM Age: 63 years old Clinical indication: Patient has had left breast pain time 6 months--all mamms were done at another facility-- patient states last mamm two months ago and was negative TECHNIQUE: Imaging protocol: Complete ultrasound of all four quadrants of the left breast and the retroareolar regions, including ultrasound of the axilla when performed. COMPARISON: No relevant prior studies available. FINDINGS: Breast: Sonographic images of the left breast including the retroareolar region, all 4 quadrants and the axilla do not demonstrate any solid or cystic masses with the exception of an incidental 0.2 cm 10 o'clock periareolar cyst. No architectural distortion or acoustical shadowing. No skin thickening or axillary adenopathy. IMPRESSION: No sonographic evidence of malignancy. Annual mammographic screening is recommended unless otherwise clinically indicated. ASSESSMENT: BI-RADS Category 1: Negative
== END ==
PROVIDERS: PCP Nurse Practitioner Family; Visit Provider Nurse Practitioner Family
DX: N64.4 Mastodynia (principal)
CPT/HCPCS: 76641

== ENCOUNTER 2024-03-23 11:37 | Outpatient (CLI) | payer MEDICARE, SELFPAY ==
--- NOTE | 2024-03-23 | XR_ITS ---
PROCEDURE INFORMATION: Exam: XR Chest Exam date and time: 03/23/2024 11:33 AM Age: 63 years old Clinical indication: Cough; Additional info: Acute cough TECHNIQUE: Imaging protocol: Radiologic exam of the chest. Views: 2 views. COMPARISON: CR XR CHEST 2V 07/04/2023 11:09 AM FINDINGS: Lungs: Unremarkable. No consolidation. Pleural spaces: Unremarkable. No pleural effusion. No pneumothorax. Heart/Mediastinum: Unremarkable. No cardiomegaly. Bones/joints: Unremarkable. IMPRESSION: No acute findings.
--- OUTSIDE RECORDS SUMMARY | 2024-03-23 11:40 | XMS_ITS | Clinical Summary ---
Author Name Unknown Address [address] [place] [address] Phone Organization [facility] Address [address] [place] [address] Phone Care Team Providers Care Vocational Rehabilitation Supervisor Name Role Phone MARCIAL CHEUNG, VONDA Unavailable [phone] Danilo CHEUNG, Tj Agustin Unavailable [phone] Reason for Visit and Chief Complaint BRACE FITTING Problems Includes: Problems addressed during this encounter and other active Problems All Visits Onset Date Resolved Date Provider Condition S tatus Joint Pain in the Right Knee 07/10/2023 Art Vizcarra MD Active Last Documented On 3 1:51PM ; [facility], [facility] Neck Pain 07/07/2021 Neo Sandhu MD Active Last Documented On 1 8:43AM ; [facility] Lower Back Pain 07/07/2021 Neo Sandhu MD A ctive Last Documented On 1 8:43AM ; [facility], [facility] Joint Pain, Localized in Both Shoulders 07/21/2020 Haider Madera MD Active Last Documented On 0 3:28PM ; [facility], [facility] Joint Pain Fingers of Both Hands 05/20/2019 Isaac Carrasco MD Active Last Documented On 9 8:23AM ; [facility] Plan of Treatment Future Appointments Date Time Location [facility] Surgery Suites 04/11/2024 10:15AM Surgery Tj agustin MD Last Documented On 4 1:59PM ; [facility] Post Op 04/24/2024 8:45AM [facility] Tj Carrasco MD Last Documented On 4 2:00PM ; [facility] Assessments Includes: Assessments from this encounter No Assessments Recorded Medical Equipment - Implanted Devices Includes: Current Devices No Medical Equipment Recorded Medications Includes: Medications discussed during this encounter and other current Medications Discontinued / Stopped on this date on 10/18/2021 Levothyroxine Sodium 75 MCG Oral Tablet P rovider: Diagnosis: Last Documented On 3 10:03AM By Garth Cramer ; [facility], [facility] Losartan Potassium 50 MG Oral Tablet Prov ider: Therese Gomes APRN Diagnosis: Last Documented On 3 10:03AM By Garth Cramer ; [facility], [facility] Synthroid 75 MCG Oral Tablet Provider: IONA GALEANO MD Diagnosis: Last Documented On 3 10:03AM By Garth Cramer ; [facility] Losartan Potassium 50 MG Oral Tablet Prov ider: Diagnosis: Last Documented On 3 10:04AM By Garth Cramer ; [facility] DULoxetine HCl 30 MG Oral Ca psule Delayed Release Particles Provider: DAVIS LEDEZMAP Diagnosis: Last Documented On 3 10:04AM By Garth Cramer ; [facility] Nitrostat 0.4 MG Sublingual Tablet Sublingual Provider: Diagnosis: Last Documented On 3 10:04AM By Garth Cramer ; [facility], [facility] CVS D3 10 MCG (400 UNIT) Oral Capsule Pro vider: Diagnosis: Last Documented On 3 10:04AM By Garth Cramer ; [facility] Euthyrox 88 MCG Oral Tablet Provider: Alec Villa Diagnosis: Last Documented On 3 10:04AM By Garth Cramer ; [facility] Gabapentin 400 MG Oral Capsule Provider: JUAN DAVID COTO MD Diagnosis: Last Documented On 3 10:04AM By Garth Cramer ; [facility] Lovastatin 40 MG Oral Tablet Provider: Alec Villa Diagnosis: Last Documented On 3 10:04AM By Garth Cramer ; [facility] Methocarbamol 750 MG Oral Tablet Provider : JUAN DAVID COTO MD Diagnosis: Last Documented On 3 10:04AM By Garth Cramer ; [facility], [facility] Ezetimibe 10 MG Oral Tablet Provider: SIMRAN DEL CASTILLO MD Diagnosis: Last Documented On 3 10:04AM By Garth Cramer ; [facility], [facility] metFORMIN HCl 500 MG Oral Tablet Provider : IONA GALEANO MD Diagnosis: Last Documented On 3 10:03AM By Garth Cramer ; [facility], [facility] Current Medications (continue as prescribed) Ozempic (0.25 or 0.5 MG/DOSE ) 2 MG/1.5ML Subcutaneous Solution Pen-injector 11/29/2023 Provider: Diagnosis: Last Documented On 4 10:45AM By Natasha Figueredo ; [facility], [facility] Alpha Lipoic Acid 200 MG Oral Capsule 07/13/2023 Pro vider: KATHRYN MARISCAL MD Diagnosis: Last Documented On 3 10:03AM By Garth Cramer ; [facility], [facility] Rheumate Oral Capsule 07/13/2023 Provider: KATHRYN ARMENTA MD Diagnosis: Last Documented On 3 10:03AM By Garth Cramer ; [facility] metFORMIN HCl ER 500 MG Oral Tablet Extended Rel ease 24 Hour 07/11/2023 Provider: Diagnosis: Last Documented On 3 10:03AM By Garth Cramer ; [facility] Gabapentin 400 MG Oral Capsule 07/03/2023 Provider: JUAN DAVID COTO MD Diagnosis: Last Documented On 3 10:03AM By Garth Cramer ; [facility], [facility] DULoxetine HCl 60 MG Oral Ca psule Delayed Release Particles 07/03/2023 Provider: JUAN DAVID COTO MD Diagnosis: Last Documented On 3 10:03AM By Garth Cramer ; [facility], [facility] Medications Administered Includes: Administered Medications from this encounter No Administered Medications Recorded Results Includes: Results discussed during this encounter No Results Recorded For Specified Dates History of Present Illness Includes: History of Present Illness from this encounter No History of Present Illness Recorded Social History No Social History Recorded - Smoking Status Unknown Medical History Includes: Medical History addressed during this encounter No Medical History Recorded Family History Includes: Family History addressed during this encounter No Family History Recorded Review of Systems Includes: Review of Systems from this encounter No Review of Systems Recorded Mental Status Includes: Mental Status from this encounter No Mental Status Recorded Functional Status Includes: Functional Status from this encounter No Functional Status Recorded Physical Exam Includes: Physical Exam from this encounter No Physical Exam Recorded Allergies Includes: Active Allergies Substance Type Reaction Onset Date Resolved Date Statu s plavix Allergy 07/16/2012 Active Last Documented On 4 1:27PM ; [facility] Lipitor Allergy 05/20/2019 Active Last Documented On 4 1:27PM ; [facility] Darvocet A500 Allergy 07/16/2012 Activ e Last Documented On 4 1:27PM ; [facility] Crestor Allergy 05/20/2019 Active Last Documented On 4 1:27PM ; [facility] Insurance Includes: Active Insurance Policies Plan Name Member ID Group # Subscriber Relationship Effect ania Dates 1 - [employer] ([place] Medicare [id number] Mariana Villaseñor Self Clinical Notes Includes: Clinical Notes from this encounter No Clinical Notes Recorded
--- OUTSIDE RECORDS SUMMARY | 2024-03-23 11:40 | XMS_ITS ---
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 Name Role Phone MARCIAL CHEUNG, VONDA Unavailable [phone] Danilo CHEUNG, Tj Agustin Unavailable [phone] Reason for Referral Date Encounter Description Provider Reason for Referral 01/31/24 Follow Up Tj Carrasco MD Referra l To Physician 11/29/23 Follow Up Tj Carrasco MD Referra l To Physician 11/17/21 Follow Up Tj Carrasco MD Referra l To Physician 10/18/21 Follow Up Haider Madera MD Refe rral To Physician - to see [facility]pc for bp 09/27/21 Follow Up Haider Madera MD Refe rral To Physician - to see [facility] for bp 08/23/21 Follow Up Neo Sandhu MD Referral To Physician - to see [facility] for bp 07/12/21 Post Op Tj Carrasco MD Referra l To Physician - to see [facility] for bp 07/07/21 IN HOUSE REFERRAL Neo Sandhu MD Refe rral To Physician - to see [facility] for bp 06/07/21 Physician Specified Tj Carrasco MD Referral To Physician - to see [facility] for bp 05/27/21 Follow Up Haider Madera MD Refe rral To Physician - to see [facility] for bp 04/07/21 Follow Up Haider Madera MD Refe rral To Physician - to see [facility] for bp 01/27/21 Follow Up Haider Madera MD Refe rral To Physician - to see [facility] for bp 10/26/20 Follow Up Haider Madera MD Refe rral To Physician - to see [facility] for bp 09/23/20 Follow Up Haider Madera MD Refe rral To Physician - to see [facility] for bp 08/12/20 Follow Up Haider Madera MD Refe rral To Physician - to see [facility] for bp 07/21/20 Non Physician Specified Haider rosenberg MD Referral To Physician - to see [facility] for bp Problems Includes: Active, inactive, and resolved Problems All Visits Onset Date Resolved Date Provider Condition S tatus Joint Pain in the Right Knee 07/10/2023 Art Vizcarra MD Active Last Documented On 3 1:51PM ; [facility] Neck Pain 07/07/2021 Neo Sandhu MD Active Last Documented On 1 8:43AM ; [facility] Lower Back Pain 07/07/2021 Neo Sandhu MD A ctive Last Documented On 1 8:43AM ; [facility] Joint Pain, Localized in Both Shoulders 07/21/2020 Haider Madera MD Active Last Documented On 0 3:28PM ; [facility] Joint Pain Fingers of Both Hands 05/20/2019 Isaac Carrasco MD Active Last Documented On 9 8:23AM ; [facility] Plan of Treatment Pending Tests Order Diagnosis Results Due Ordering [facility] - MRI MRI Shoulder 10/11/21 Haider Madera MD Last Documented On 1 2:06PM ; [facility] Future Appointments Date Time Location Provi arabella [facility] Outpa tient Surgery Suites 04/11/2024 10:15AM Surgery Tj agustin MD Last Documented On 4 1:59PM ; [facility] Post Op 04/24/2024 8:45AM [facility] Tj Carrasco MD Last Documented On 4 2:00PM ; [facility] Instructions to patient Lose weight Last Documented On 4 1:27PM ; [facility] Lose weight Last Documented On 4 10:45AM ; [facility] Lose weight Last Documented On 3 10:04AM ; [facility] Lose weight Last Documented On 1 2:18PM ; [facility] Instructions for patient see pcp for bp Last Documented On 1 1:56PM ; [facility] Lose weight Last Documented On 1 11:20AM ; [facility] Instructions for patient see pcp for bp Last Documented On 1 10:31AM ; [facility] Instructions for patient see pcp for bp Last Documented On 1 10:44AM ; [facility] Instructions for patient see pcp for bp Last Documented On 1 10:35AM ; [facility] Instructions for patient see pcp for bp Last Documented On 1 10:48AM ; [facility] Instructions for patient see pcp for bp Last Documented On 1 8:41AM ; [facility] Instructions for patient see pcp for bp Last Documented On 1 2:10PM ; [facility] Instructions for patient see pcp for bp Last Documented On 1 12:55PM ; [facility] Instructions for patient see pcp for bp Last Documented On 1 11:18AM ; [facility] Instructions for patient see pcp for bp Last Documented On 1 2:46PM ; [facility] Instructions for patient see pcp for bp Last Documented On 0 9:48AM ; [facility] Instructions for patient see pcp for bp Last Documented On 0 8:55AM ; [facility] Instructions for patient see pcp for bp Last Documented On 0 9:51AM ; [facility] Instructions for patient see pcp for bp Last Documented On 0 2:48PM ; [facility] Instructions for patient see pcp for bp Last Documented On 9 1:23PM ; [facility] Instructions for patient see pcp for bp Last Documented On 9 11:23AM ; [facility] Instructions for patient to see pcp for bp Last Documented On 9 8:46AM ; [facility] Assessments Includes: Assessments for all patient encounters Findings Encounter Date Overweight NEW PROBLEM/EST PT with Tj Carrasco MD 07/19/2023 Last Documented On 4 3:26PM ; [facility] Instructions Includes: Instructions for all patient encounters Instructions to patient Lose weight Last Documented On 4 1:27PM ; [facility] Lose weight Last Documented On 4 10:45AM ; [facility] Lose weight Last Documented On 3 10:04AM ; [facility] Lose weight Last Documented On 1 2:18PM ; [facility] Instructions for patient see pcp for bp Last Documented On 1 1:56PM ; [facility] Lose weight Last Documented On 1 11:20AM ; [facility] Instructions for patient see pcp for bp Last Documented On 1 10:31AM ; [facility] Instructions for patient see pcp for bp Last Documented On 1 10:44AM ; [facility] Instructions for patient see pcp for bp Last Documented On 1 10:35AM ; [facility] Instructions for patient see pcp for bp Last Documented On 1 10:48AM ; [facility] Instructions for patient see pcp for bp Last Documented On 1 8:41AM ; [facility] Instructions for patient see pcp for bp Last Documented On 1 2:10PM ; [facility] Instructions for patient see pcp for bp Last Documented On 1 12:55PM ; [facility] Instructions for patient see pcp for bp Last Documented On 1 11:18AM ; [facility] Instructions for patient see pcp for bp Last Documented On 1 2:46PM ; [facility] Instructions for patient see pcp for bp Last Documented On 0 9:48AM ; [facility] Instructions for patient see pcp for bp Last Documented On 0 8:55AM ; [facility] Instructions for patient see pcp for bp Last Documented On 0 9:51AM ; [facility] Instructions for patient see pcp for bp Last Documented On 0 2:48PM ; [facility] Instructions for patient see pcp for bp Last Documented On 9 1:23PM ; [facility] Instructions for patient see pcp for bp Last Documented On 9 11:23AM ; [facility] Instructions for patient to see pcp for bp Last Documented On 9 8:46AM ; [facility] Medical Equipment - Implanted Devices Includes: Current and historical Devices No Medical Equipment Recorded Medications Includes: Current and historical Medications Current Medications (continue as prescribed) Ozempic (0.25 or 0.5 MG/DOSE ) 2 MG/1.5ML Subcutaneous Solution Pen-injector 11/29/2023 Provider: Diagnosis: Last Documented On 4 10:45AM By Natasha Figueredo ; [facility] Alpha Lipoic Acid 200 MG Oral Capsule 07/13/2023 Pro vider: KATHRYN MARISCAL MD Diagnosis: Last Documented On 3 10:03AM By Garth Cramer ; [facility] Rheumate Oral Capsule 07/13/2023 Provider: KATHRYN ARMENTA MD Diagnosis: Last Documented On 3 10:03AM By Garth Cramer ; [facility] metFORMIN HCl ER 500 MG Oral Tablet Extended Rel ease 24 Hour 07/11/2023 Provider: Diagnosis: Last Documented On 3 10:03AM By Garth Cramer ; [facility], [facility] Gabapentin 400 MG Oral Capsule 07/03/2023 Provider: JUAN DAVID GALICIA MD Diagnosis: Last Documented On 3 10:03AM By Garth Cramer ; [facility] DULoxetine HCl 60 MG Oral Ca psule Delayed Release Particles 07/03/2023 Provider: JUAN DAVID GALICIA MD Diagnosis: Last Documented On 3 10:03AM By Garth Cramer ; [facility] Past Medications on file Ativan 1 MG Oral Tablet 07/18/2023 - 07/19/2023 Provid er: Art Vizcarra MD Diagnosis: take as directed; Take 1 tab let 1 hour before MRI; May take an additional tablet if needed. Last Documented On 3 3:09PM By Dr. Vizcarra ; [facility] Levothyroxine Sodium 75 MCG Oral Tablet 10/18/2021 - 0 07/19/2023 Provider: Diagnosis: Last Documented On 3 10:03AM By Garth Cramer ; [facility] Losartan Potassium 50 MG Oral Tablet 10/18/2021 - 07/19/2023 Provider: Therese peng APRN Diagnosis: Last Documented On 3 10:03AM By Garth Cramer ; [facility] Synthroid 75 MCG Oral Tablet 10/18/2021 - 07/19/2023 P nicole: IONA GALEANO MD Diagnosis: Last Documented On 3 10:03AM By Garth Cramer ; [facility] Losartan Potassium 50 MG Oral Tablet 09/27/2021 - 06/22 Provider: Diagnosis: Last Documented On 3 10:04AM By Garth Cramer ; [facility] HYDROcodone-Acetaminophen 7. 5-325 MG Oral Tablet 06/24/2021 - 10/18/2021 Provider: Tj Carrasco MD Diagnosis: 1 q 6 hours prn pain Last Documented On 1 11:04AM By Therese Swan ; [facility] DULoxetine HCl 30 MG Oral Capsule Delayed Release Particles 11/26/2020 - 07/19/2023 Provider: DAVIS VAN [employer] Diagnosis: Last Documented On 3 10:04AM By Garth Cramer ; [facility] Nitrostat 0.4 MG Sublingual Tablet Sublingual 07/21/20 20 - 07/19/2023 Provider: Diagnosis: Last Documented On 3 10:04AM By Garth Cramer ; [facility] Lovastatin 40 MG Oral Tablet 07/21/2020 - 10/18/2021 P rovider: VONDA CEJA MD Diagnosis: Last Documented On 1 11:19AM By Carmen Fleming ; [facility] CVS D3 10 MCG (400 UNIT) Oral Capsule 07/21/2020 - Provider: Diagnosis: Last Documented On 3 10:04AM By Garth Cramer ; [facility] Levothyroxine Sodium 88 MCG Oral Tablet 07/21/2020 - 1 12/18/2020 Provider: Diagnosis: Last Documented On 1 11:19AM By Carmen Fleming ; [facility] Euthyrox 88 MCG Oral Tablet 07/15/2020 - 07/19/2023 Pr ovider: Alec Villa Diagnosis: Last Documented On 3 10:04AM By Garth Cramer ; [facility] Gabapentin 400 MG Oral Capsule 07/08/2020 - 07/19/2023 Provider: JUAN DAVID GALICIA MD Diagnosis: Last Documented On 3 10:04AM By Garth Cramer ; [facility] Lovastatin 40 MG Oral Tablet 07/07/2020 - 07/19/2023 P nicole: Alec Villa Diagnosis: Last Documented On 3 10:04AM By Garth Cramer ; [facility] Methocarbamol 750 MG Oral Tablet 07/06/2020 - 07/19/20 Provider: JUAN DAVID GALICIA MD Diagnosis: Last Documented On 3 10:04AM By Garth Cramer ; [facility] Ezetimibe 10 MG Oral Tablet 06/08/2020 - 07/19/2023 Pr ovider: SIMRAN DEL CASTILLO MD Diagnosis: Last Documented On 3 10:04AM By Garth Cramer ; [facility] Lisinopril 10 MG Oral Tablet 05/22/2020 - 10/18/2021 P nicole: IONA GALEANO MD Diagnosis: Last Documented On 1 11:20AM By Carmen Fleming ; [facility] metFORMIN HCl 500 MG Oral Tablet 05/08/2020 - 07/19/20 23 Provider: IONA GALEANO MD Diagnosis: Last Documented On 3 10:03AM By Garth Cramer ; [facility] Ibuprofen 400 MG OR TABS 07/13/2019 - 10/18/2021 Provi arabella: Tj Carrasco MD Diagnosis: for post op pain Last Documented On 1 11:04AM By Therese Swan ; [facility] Diclofenac Sodium 1% Transdermal Gel 04/25/2019 - 07/21/2020 Provider: Endy MORANM Diagnosis: Last Documented On 0 3:26PM By Sophia Dennison ; [facility] Nitroglycerin 0.4MG Sublingu al Tablet Sublingual 03/28/2019 - 05/20/2019 Provider: SIMRAN Greenfield Diagnosis: Last Documented On 9 8:39AM By Sophia Hummel-Jasper ; [facility] Methocarbamol 750MG Oral Tablet 03/25/2019 - 0 Provider: JUAN DAVID GALICIA MD Diagnosis: Last Documented On 0 3:27PM By Sophia Dennison ; [facility] Gabapentin 400MG Oral Capsule 03/21/2019 - 07/21/2020 Provider: JUAN DAVID GALICIA MD Diagnosis: Last Documented On 0 3:26PM By Sophiamiranda Dennison ; [facility] Lovastatin 40MG Oral Tablet 03/18/2019 - 07/21/2020 Pr ovider: VONDA CEJA MD Diagnosis: Last Documented On 0 3:27PM By Sophiamiranda Dennison ; [facility] Lisinopril 10MG Oral Tablet 03/18/2019 - 07/21/2020 Pr ovider: IONA GALEANO MD Diagnosis: Last Documented On 0 3:26PM By Sophiamiranda Dennison ; [facility] Levothyroxine Sodium 88MCG Oral Tablet 03/05/2019 - Provider: Diagnosis: Last Documented On 0 3:27PM By Sophia Jesi ; [facility] Lansoprazole 30MG Oral Capsule Delayed Release 0 02/24/2019 - 07/21/2020 Provider: Diagnosis: Last Documented On 0 3:26PM By Sophia Hummel-Jasper ; [facility] metFORMIN HCl 500MG Oral Tablet 02/24/2019 - 0 Provider: IONA GALEANO MD Diagnosis: Last Documented On 0 3:27PM By Sophiamiranda Hummel-Jasper ; [facility] Atenolol 25MG Oral Tablet 02/24/2019 - 07/21/2020 Prov ider: SIMRAN DEL CASTILLO MD Diagnosis: Last Documented On 0 3:26PM By Sophiamrianda Hummel-Jasper ; [facility] Jardiance 25MG Oral Tablet 12/24/2018 - 05/20/2019 Pro vider: IONA GALEANO MD Diagnosis: Last Documented On 9 8:40AM By Sophia Hummel-Jasper ; [facility] Esau Aspirin 325 MG OR TABS 08/27/2012 - 05/20/2019 Mazin rivera: Diagnosis: Last Documented On 9 8:25AM By Sophia Hummel-Jasper ; [facility] GNP Vitamin E 200 UNIT OR CAPS 08/27/2012 - 05/20/2019 Provider: Diagnosis: Last Documented On 9 8:25AM By Sophia Hummel-Jasper ; [facility] Pravastatin Sodium 40 MG OR TABS 08/27/2012 - 05/20/20 19 Provider: Diagnosis: Last Documented On 9 8:25AM By Sophia Dennison ; [facility] Zetia 10 MG OR TABS 08/27/2012 - 05/20/2019 Provider: Diagnosis: Last Documented On 9 8:25AM By Sophia Dennison ; [facility] CVS Flaxseed Oil 1000 MG OR CAPS 08/27/2012 - 05/20/20 19 Provider: Diagnosis: Last Documented On 9 8:25AM By Sophia Hummel-Jasper ; [facility] CVS Vitamin C 500 MG OR TABS 08/27/2012 - 05/20/2019 P rovider: Diagnosis: Last Documented On 9 8:25AM By Sophia Dennison ; [facility] glyBURIDE 5 MG OR TABS 08/27/2012 - 05/20/2019 Provide r: Diagnosis: Last Documented On 9 8:25AM By Sophia Dennison ; [facility] Levothyroxine Sodium 50 MCG OR TABS 08/27/2012 - 05/20 Provider: Diagnosis: Last Documented On 9 8:25AM By Sophia Dennison ; [facility] Fish Oil 1200 MG OR CAPS 08/27/2012 - 05/20/2019 Provi arabella: Diagnosis: Last Documented On 9 8:25AM By Sophia Dennison ; [facility] Lisinopril 20 MG OR TABS 08/27/2012 - 05/20/2019 Provi arabella: Diagnosis: Last Documented On 9 8:25AM By Sophia Dennison ; [facility] Medications Administered Includes: Administered Medications in patient's chart No Administered Medications Recorded Vital Signs Includes: Vital Signs from 03/23/2023 through 03/23/2024 Vital Name 01/31/2024 01:28P 11/29/2023 10:45A 07/25/2023 10:49A 07/19/2023 10:15A 07/10/2023 01:51P Height (in) 64 64 64 64 64 Weight (lb) 165 165 185 183 185 Body Mass Index 28.3 28.3 31.8 31.4 31.8 Body Surface Area 1.8 1.8 1.9 1.9 1.9 Note: bh BH mg dp Last Documented: On 01/31/2024 1:28PM ; [facility] On 11/29/2023 10:45AM ; [facility] On 07/25/2023 10:49AM ; [facility] On 07/19/2023 10:15AM ; [facility] On 07/10/2023 2:02PM ; [facility] Results Includes: Results from 03/23/2023 through 03/23/2024 No Results Recorded For Specified Dates History of Present Illness History of Present Illness not supported for this document type No History of Present Illness Recorded Social History Description Last Updated Tobacco non-user 02/06/2024 Last Documented On 4 3:26PM ; [facility] No recent change in diet 02/06/2024 Last Documented On 4 3:26PM ; [facility] Not a current smoker. 02/06/2024 Last Documented On 4 3:26PM ; [facility] Non-smoker 11/17/2021 Last Documented On 1 2:02PM ; [facility] Exercising regularly 2-3 times a week Last Documented On 1 10:47AM ; [facility] No caffeine use 08/23/2021 Last Documented On 1 10:47AM ; [facility] No recent change in diet 08/23/2021 Last Documented On 1 10:47AM ; [facility] Not a current smoker. 07/21/2020 Last Documented On 0 4:01PM ; [facility] No tobacco use 07/21/2020 Last Documented On 0 4:01PM ; [facility] Not a current smoker 07/21/2020 Last Documented On 0 4:01PM ; [facility] Not using alcohol 07/21/2020 Last Documented On 0 4:01PM ; [facility] Not using drugs 07/21/2020 Last Documented On 0 4:01PM ; [facility] Smoking status : Never smoker 07/21/2020 Last Documented On 0 4:01PM ; [facility] Procedures and Surgical History Includes: Procedures from 03/23/2023 through 03/23/2024 Procedures Code Diagnosis Performing Provider Service Location Service Date Triamcinolone/Mukul alog, 10mg per cc J3301 Trigger finger, right middle finger Tj Carrasco MD [facility] 11/29/2023 Last Documented On 4 11:19AM ; [facility] INJ TENDON SHEATH/LIGAMENT (RIGHT) 30492 Trigger finger, right middle finger Tj Carrasco MD [facility] 11/29/2023 Last Documented On 4 11:19AM ; [facility] INJ TENDON SHEATH/LIGAMENT (Distinct procedure, RIGHT HAND, THIRD DIGIT) 53229 Pain in right finger(s) Tj Carrasco MD [facility] 07/19/2023 Last Documented On 3 11:37AM ; [facility] Comfort Cool Splint A4466 Unil primary osteoarth of first carpometacarp joint, l hand Tj Carrasco MD [facility] 07/19/2023 Last Documented On 3 2:39PM ; [facility] Triamcinolone/Kenalog, 10mg per cc J3301 Pain in right finger(s) Tj Carrasco MD [facility] 07/19/2023 Last Documented On 3 8:36AM ; [facility] X-RAY EXAM OF FINGER(S) 2-3 VIEWS (LEFT) 07389 Unil primary osteoarth of first carpometacarp joint, l hand Tj Carrasco MD [facility] 07/19/2023 Last Documented On 3 8:36AM ; [facility] X-RAY EXAM OF FINGER(S) 2-3 VIEWS (RIGHT) 26446 Unil primary osteoarth of first carpometacarp joint, r hand Tj Carrasco MD [facility] 07/19/2023 Last Documented On 3 8:36AM ; [facility] DRAIN/INJECT, JOINT/BURSA (Bilateral Procedure) Bilateral primary osteoarth of first carpometacarp joints Tj Carrasco MD [facility] 07/19/2023 Last Documented On 3 8:36AM ; [facility] MRI JNT OF LWR EXTRE W/O DYE (RIGHT) 63397 Pain in right knee Art Vizcarra MD [facility] 07/19/2023 Last Documented On 3 7:55AM ; [facility] X-RAY EXAM KNEE 4 OR MORE (RIGHT) 37820 Pain in right knee Art Vizcarra MD [facility] 07/10/2023 Last Documented On 3 1:21PM ; [facility] Surgical History Last Updated History of back surgery 07/21/2020 Last Documented On 0 4:01PM ; [facility] History of heart surgery 07/21/2020 Last Documented On 0 4:01PM ; [facility] Medical History Includes: Medical History in patient's chart Description Last Updated Recent immunization for flu 08/20/2020 1 Last Documented On 1 10:47AM ; [facility] Past Surgical History: 07/16 Right CTR @ [facility] [place] ~06/29/2021 Left CTR with transposition @ [facility] [place] 07/12/2021 Last Documented On 1 4:27PM ; [facility] Past surgical history non-contributory: Foot & hand sx 07/21/2020 Last Documented On 0 4:01PM ; [facility] Arthritis 07/21/2020 Last Documented On 0 4:01PM ; [facility] Back surgery 07/21/2020 Last Documented On 0 4:01PM ; [facility] Heart surgery 07/21/2020 Last Documented On 0 4:01PM ; [facility] Hypertension 07/21/2020 Last Documented On 0 4:01PM ; [facility] No recent immunization for pneumococcal pneumonia 07/21/2020 Last Documented On 0 4:01PM ; [facility] Thyroid Disease 07/21/2020 Last Documented On 0 4:01PM ; [facility] A recent injection 07/21/2020 Last Documented On 0 4:01PM ; [facility] Arthritic joint problems 07/21/2020 Last Documented On 0 4:01PM ; [facility] History of diabetes mellitus 07/21/2020 Last Documented On 0 4:01PM ; [facility] History of heart disease 07/21/2020 Last Documented On 0 4:01PM ; [facility] Intermittent hypertension 07/21/2020 Last Documented On 0 4:01PM ; [facility] Thyroid disease 07/21/2020 Last Documented On 0 4:01PM ; [facility] Family History Includes: Family History in patient's chart Description Last Updated Family history of cancer 08/25/2021 Last Documented On 1 10:47AM ; [facility] Diabetes mellitus 08/23/2021 Last Documented On 1 10:47AM ; [facility] Family history of heart disease 08/23/20 21 Last Documented On 1 10:47AM ; [facility] Fraternal history of diabetes mellitus 0 07/21/2020 Last Documented On 0 4:01PM ; [facility] Fraternal history of family history of h eart disease 07/21/2020 Last Documented On 0 4:01PM ; [facility] Maternal history of family history of ca ncer 07/21/2020 Last Documented On 0 4:01PM ; [facility] Review of Systems Review of Systems not supported for this document type No Review of Systems Recorded Mental Status Description No anxiety Functional Status No Functional Status Recorded Physical Exam Physical Exam not supported for this document type No Physical Exam Recorded Immunizations Includes: Immunizations in patient's chart Vaccine Dose # Date Site Reaction(s) Status Source Influenza 1 09/20/2020 Complete (Reported) Patient Last Documented On 0 9:03AM ; [facility] Influenza 2 08/20/2021 Complete (Reported) Patient Last Documented On 1 11:19AM ; [facility] PCV (Pneumovax 23) 1 04/07/2021 Complete (Refused - Patient objection) [facility] Last Documented On 1 11:22AM ; [facility] Td 1 04/07/2021 Complete (Refused - Patient objection) [facility] Last Documented On 1 11:22AM ; [facility] Allergies Includes: Active, inactive, and resolved Allergies Substance Type Reaction Onset Date Resolved Date Statu s plavix Allergy 07/16/2012 Active Last Documented On 4 1:27PM ; [facility] Lipitor Allergy 05/20/2019 Active Last Documented On 4 1:27PM ; [facility] Darvocet A500 Allergy 07/16/2012 Activ e Last Documented On 4 1:27PM ; [facility] Crestor Allergy 05/20/2019 Active Last Documented On 4 1:27PM ; [facility] Encounters Includes: Encounters from 03/23/2023 through 03/23/2024 Encounter Provider Location Date Check-In Time Check-Out Time Diagnosis Follow Up Tj Carrasco MD [facility] 01/31/20 24 1:24PM 1:45PM Follow Up Tj Carrasco MD [facility] 11/29/19 24 10:36AM 11:02AM Follow Up Art Vizcarra MD [facility] 07/25/20 23 10:10AM 11:38AM MRI [facility] 07/19/20 23 2:04PM 2:19PM NEW PROBLEM/EST PT Tj Carrasco MD [facility] 07/19/20 23 10:00AM 10:59AM Overweight [employer] [employer] Tj Carrasco MD [facility] 07/19/20 23 07/25/2023 9:56AM 07/25/2023 11:59PM Physician Specified Art Vizcarra MD [facility] 07/10/20 23 1:45PM 3:40PM Insurance Includes: Active Insurance Policies Plan Name Member ID Group # Subscriber Relationship Effect ania Dates 1 - [employer] ([place] Medicare [id number] Mariana Villaseñor Self Clinical Notes Includes: Signed Clinical Notes starting from 11/03/2022 * Progress note Date Encounter Last Documented by 01/31/2024 Follow Up Last documented on 02/05/2024; 6:49 PM, Tj Carrasco MD; [facility], [facility] Active Problems & Conditions - Joint Pain Fingers of Both Hands - Joint Pain in the Right Knee - Joint Pain, Localized in Both Shoulders - Lower Back Pain - Neck Pain Chief Complaint The Chief Complaint is: Left thumb pain/R middle finger pain. Referred Here Referred by pcp. History of Present Illness Mariana Villaseñor is a 63 year old female. - Allergy list reviewed - Problem list reviewed - Medication list reviewed Patient is here today for follow up for RLF trigger finger. She states the injection she received at her previous appointment helped her symptoms however the digit still clicks. She reports she has noticed numbness in the RSF, RRF, and RLF. She has previously undergone R CTR in 2019. Current Medication - Alpha Lipoic Acid 200 MG Oral Capsule Capsule, conventional 30 days, 0 refills - DULoxetine HCl 60 MG Oral Capsule Delayed Release Particles Capsule, delayed-release particles 90 days, 0 refills - Gabapentin 400 MG Oral Capsule Capsule, conventional 90 days, 0 refills - metFORMIN HCl ER 500 MG Oral Tablet Extended Release 24 Hour Tablet, extended-release 24 hour 90 days, 0 refills - Ozempic (0.25 or 0.5 MG/DOSE) 2 MG/1.5ML Subcutaneous Solution Pen-injector once a day 0 days, 0 refills - Rheumate Oral Capsule Capsule, conventional 90 days, 0 refills Past Medical/Surgical History Reported: Medical: Thyroid disease and joint problems arthritic. Intermittent hypertension. Medications: A recent injection. Immunization History: Recent immunization for flu 08/20/2020. No recent immunization for pneumococcal pneumonia. Diagnoses: Heart disease. Thyroid Disease Hypertension. Diabetes mellitus. Arthritis Past surgical history non-contributory: Foot & hand sx. Surgical: - Heart surgery - Heart surgery - Past Surgical History: 07/16/2019 Right CTR @ [facility] [place] 06/29/2021 Left CTR with transposition @ [facility] [place] - Back surgery - Back surgery Social History Not a current smoker. Current diet: No recent change in diet. Caffeine use: No caffeine use. Tobacco use: No tobacco use and not a current smoker. Non-smoker. Smoking status: Never smoker. Alcohol: Not using alcohol. Drug Use: Not using drugs. Habits: Exercising regularly 2-3 times a week. Allergies - Crestor - Darvocet A500 - Lipitor - plavix Family History Cancer Heart disease Diabetes mellitus Maternal: Cancer Fraternal: Heart disease Diabetes mellitus Review Of Systems Systemic: Not feeling tired, no recent weight loss, and no recent weight gain. Head: No headache and no sinus pain. Eyes: No vision problems, no Cataracts, no Glasses/Contacts, and no Glaucoma. Otolaryngeal: No hearing loss and no tinnitus. Cardiovascular: No chest pain or discomfort, no palpitations, no Hypertension, and no High Cholesterol. Pulmonary: No daytime asthma symptoms and no chronic cough. No wheezing. Gastrointestinal: No heartburn and no abdominal pain. No Indigestion, no Acid Reflux, no Peptic Ulcer, no GI Stomach Bleed, and no Ulcers. Endocrine: No hot flashes, no muscle weakness, no Diabetes, no Hypothyroid, and no Hyperthyroid. Hematologic: No easy bleeding, no tendency for easy bruising, and no Anemia. Musculoskeletal: No Arthritis and no lower back pain. No soft tissue swelling and no localized joint pain. Neurological: No dizziness, no convulsions, and no numbness. Psychological: No anxiety, no emotional lability, no depression, and no insomnia. Not crying for no reason. Skin: No dry skin. No Ulcers, no Scars, and no rash. Allergic and Immunologic: No complaint of seasonal allergic reaction. reviewed 01/31/24 The patient is awake alert oriented in time place and person. Has normal mood and affect. Is neatly dressed. Has normal gait and station. Pupils are equal and react to light normally. Eyes move normally. Mucous membranes are moist. The patient has no trouble with speech. Normal circulation. No thenar or intrinsic atrophy. Normal strength. Tender RLF A1 sylvia. Physical Findings - Vitals taken 01/31/2024 01:28 pm bh Height 64 in 59 - 78 Weight 165 lbs 96 - 178 Body Mass Index 28.3 kg/m2 Body Surface Area 1.8 m2 Tests EMG/nerve conduction study from March 2000 19 Showed Carpal Tunl. syndrome and cubital tunnel syndrome on the left Previous Tests Imaging: X-Ray: An X-ray was performed. Therapy - Referral to physician. Counseling/Education - Lose weight Plan I explained to the patient that the diagnosis is RLF TF as well as R cubital tunnel release. I have discussed the options with the patient. One being trying another injection guidance to ensure accuracy. We also discussed surgery to repair this. I explained the procedure and recovery to the patient. Given the duration of the symptoms the patient would like to proceed with surgery. The patient understands the risk of surgery to include but are not limited to infection, possible nerve damage, tendon or vessel injury, scar sensitivity and anesthesia.The patient understands the need for postoperative rehabilitation and therapy. The patient had no further questions regarding the surgery or potential risks. We will schedule the patient for RLF TFR abd R cubital tunnel release with ulnar nerve transposition under ax block anesthesia. We will see the patient back postop. Practice Management Use of tobacco assessment performed. Care Team - VONDA CEJA MD - [facility] APPR[facility]ER Notes This dictation was done with voice recognition software and may contain errors and omissions. transcribed by Remy Mccormick * Progress note Date Encounter Last Documented by 11/29/2023 Follow Up Last documented on 12/05/2023; 1:24 PM, Tj Carrasco MD; [facility] Active Problems & Conditions - Joint Pain Fingers of Both Hands - Joint Pain in the Right Knee - Joint Pain, Localized in Both Shoulders - Lower Back Pain - Neck Pain Chief Complaint The Chief Complaint is: Left thumb pain/R middle finger pain. Referred Here Referred by pcp. History of Present Illness Mariana Villaseñor is a 63 year old female. - Problem list reviewed - Medication list reviewed Patient is here today for follow up for RLF pain. She states the injections she received into the bilateral thumb CMCJ's and the RLF A1 sylvia in June helped her symptoms, however she continues to notice pain in the RLF with triggering. She denies any numbness in the fingers. She has previously undergone L carpal and cubital tunnel release in Jun. She feels aching in the left elbow. Current Medication - Alpha Lipoic Acid 200 MG Oral Capsule 30 days, 0 refills - DULoxetine HCl 60 MG Oral Capsule Delayed Release Particles 90 days, 0 refills - Gabapentin 400 MG Oral Capsule 90 days, 0 refills - metFORMIN HCl ER 500 MG Oral Tablet Extended Release 24 Hour 90 days, 0 refills - Ozempic (0.25 or 0.5 MG/DOSE) 2 MG/1.5ML Subcutaneous Solution Pen-injector once a day 0 days, 0 refills - Rheumate Oral Capsule 90 days, 0 refills Past Medical/Surgical History Reported: Medical: Thyroid disease and joint problems arthritic. Intermittent hypertension. Medications: A recent injection. Immunization History: Recent immunization for flu 08/20/2020. No recent immunization for pneumococcal pneumonia. Diagnoses: Heart disease. Thyroid Disease Hypertension. Diabetes mellitus. Arthritis Past surgical history non-contributory: Foot & hand sx. Surgical: - Heart surgery - Heart surgery - Past Surgical History: 07/16/2019 Right CTR @ [facility] [place] 06/29/2021 Left CTR with transposition @ [facility] [place] - Back surgery - Back surgery Social History Not a current smoker. Current diet: No recent change in diet. Caffeine use: No caffeine use. Tobacco use: No tobacco use and not a current smoker. Non-smoker. Smoking status: Never smoker. Alcohol: Not using alcohol. Drug Use: Not using drugs. Habits: Exercising regularly 2-3 times a week. Allergies - Crestor - Darvocet A500 - Lipitor - plavix Family History Cancer Heart disease Diabetes mellitus Maternal: Cancer Fraternal: Heart disease Diabetes mellitus Review Of Systems Systemic: Not feeling tired, no recent weight loss, and no recent weight gain. Head: No headache and no sinus pain. Eyes: No vision problems, no Cataracts, no Glasses/Contacts, and no Glaucoma. Otolaryngeal: No hearing loss and no tinnitus. Cardiovascular: No chest pain or discomfort, no palpitations, no Hypertension, and no High Cholesterol. Pulmonary: No daytime asthma symptoms and no chronic cough. No wheezing. Gastrointestinal: No heartburn and no abdominal pain. No Indigestion, no Acid Reflux, no Peptic Ulcer, no GI Stomach Bleed, and no Ulcers. Endocrine: No hot flashes, no muscle weakness, no Diabetes, no Hypothyroid, and no Hyperthyroid. Hematologic: No easy bleeding, no tendency for easy bruising, and no Anemia. Musculoskeletal: No Arthritis and no lower back pain. No soft tissue swelling and no localized joint pain. Neurological: No dizziness, no convulsions, and no numbness. Psychological: No anxiety, no emotional lability, no depression, and no insomnia. Not crying for no reason. Skin: No dry skin. No Ulcers, no Scars, and no rash. Allergic and Immunologic: No complaint of seasonal allergic reaction. reviewed 07/19/23 The patient is awake alert oriented in time place and person. Has normal mood and affect. Is neatly dressed. Has normal gait and station. Pupils are patient has no trouble with speech. Normal circulation. Normal sensation. No thenar or intrinsic atrophy. Normal strength. Tender RLF A1 sylvia with triggering. Physical Findings - Vitals taken 11/29/2023 10:45 am BH Height 64 in 59 - 78 Weight 165 lbs 96 - 178 Body Mass Index 28.3 kg/m2 Body Surface Area 1.8 m2 Tests EMG/nerve conduction study from March 2000 19 Showed Carpal Tunl. syndrome and cubital tunnel syndrome on the left Previous Tests Imaging: X-Ray: An X-ray was performed. Therapy - Referral to physician. Counseling/Education - Lose weight Plan I explained to the patient that the diagnosis is triggering of the RLF. We discussed the course of treatment including a steroid injection versus surgery. At this time the patient would like to try an injection today as they do not elect to continue with surgery at this time. We will inject the patient and see them back in 1 month for recheck. As far as her elbow pain is concerned, I Feel this may be related to the tendonitis of the RLF. After consent had been obtained the RLF A1 sylvia was injected with 0.5 cc of Kenalog-10 and 0.5 cc of 1% lidocaine. The patient tolerated the injection well. Practice Management Use of tobacco assessment performed. Care Team - VONDA CEJA MD - [facility] Notes This dictation was done with voice recognition software and may contain errors and omissions. transcribed by Remy Mccormick * Progress note Date Encounter Last Documented by 07/25/2023 Follow Up Last documented on 07/25/2023; 11:35 AM, Art Vizcarra MD; [facility], [facility] Active Problems & Conditions - Joint Pain Fingers of Both Hands - Joint Pain in the Right Knee - Joint Pain, Localized in Both Shoulders - Lower Back Pain - Neck Pain Chief Complaint The Chief Complaint is: Right knee pain. History of Present Illness Mariana Villaseñor is a 63 year old female. - Allergy list reviewed - Problem list reviewed - Medication list reviewed Mariana is here for follow-up of both knees but mostly the right knee. she had an MRI of this knee. This has been going on for several months. She is having difficulty squatting on it. The pain is felt medially but also along the lateral side of the knee down to the mid leg and lateral thigh. It is a burning sensation. No redness or heat. No instability. Current Medication - Alpha Lipoic Acid 200 MG Oral Capsule 30 days, 0 refills - DULoxetine HCl 60 MG Oral Capsule Delayed Release Particles 90 days, 0 refills - Gabapentin 400 MG Oral Capsule 90 days, 0 refills - metFORMIN HCl ER 500 MG Oral Tablet Extended Release 24 Hour 90 days, 0 refills - Rheumate Oral Capsule 90 days, 0 refills Past Medical/Surgical History Reported: Medical: Thyroid disease and joint problems arthritic. Intermittent hypertension. Medications: A recent injection. Immunization History: Recent immunization for flu 08/20/2020. No recent immunization for pneumococcal pneumonia. Diagnoses: Heart disease. Thyroid Disease Hypertension. Diabetes mellitus. Arthritis Past surgical history non-contributory: Foot & hand sx. Surgical: - Heart surgery - Heart surgery - Past Surgical History: 07/16/2019 Right CTR @ [facility] [place] 06/29/2021 Left CTR with transposition @ [facility] [place] - Back surgery - Back surgery Social History Not a current smoker. Current diet: No recent change in diet. Caffeine use: No caffeine use. Tobacco use: No tobacco use and not a current smoker. Non-smoker. Smoking status: Never smoker. Alcohol: Not using alcohol. Drug Use: Not using drugs. Habits: Exercising regularly 2-3 times a week. Allergies - Crestor - Darvocet A500 - Lipitor - plavix Family History Cancer Heart disease Diabetes mellitus Maternal: Cancer Fraternal: Heart disease Diabetes mellitus Physical Findings - Vitals taken 07/25/2023 10:49 am mg Height 64 in 59 - 78 Weight 185 lbs 96 - 178 Body Mass Index 31.8 kg/m2 Body Surface Area 1.9 m2 The patient has normal gait and station. She has normal mood, affect and orientation. She has a well-groomed appearance. Full pain-free range of motion in both hips. Normal alignment right knee. There is full extension and full flexion. Complete stability of the cruciate and collateral ligaments. No effusion. No redness or heat. Skin is intact. there is marked tenderness on the medial and posterior medial joint line as well as the lateral joint line and she cannot squat on it. Negative straight leg raise. Negative Lasegue's sign. Grossly normal motor and sensory function. Grossly normal vascular status. Tests MRI of the right knee shows signal in the posterior and anterior horn the lateral meniscus suggestive of possible tear but not definite. there is a bit of arthritis in the patellofemoral joint. Previous5 Views of the right knee including a unicompartmental series shows no significant narrowing of the medial compartment which restores with a stress view and flexion lateral. Patellofemoral joint is intact as is the lateral compartment. Plan She has chronic pain in the knee but has good cartilage space on radiographs and no sign of significant arthritis but the MRI shows possible lateral meniscal tear and some arthritis in the patellofemoral joint. She is under treatment with Dr. Galicia in rheumatology. Based on her current level of function she feels comfortable living with this and taking Tylenol as needed for discomfort. She cannot have anti-inflammatories because of her heart. We suggested that if this strategy begins to fail her next option would be to consider arthroscopy or other intervention. She will carry on with her log buncher and we will see her back as needed in future. Care Team - VONDA CEJA MD - [facility] APPRA[facility] Notes This dictation was done with voice recognition software and may contain errors and omissions. * Progress note Date Encounter Last Documented by 07/19/2023 NEW PROBLEM/EST PT Last document ed on 02/06/2024; 3:26 PM, Tj Carrasco MD; [facility] Active Problems & Conditions - Joint Pain Fingers of Both Hands - Joint Pain in the Right Knee - Joint Pain, Localized in Both Shoulders - Lower Back Pain - Neck Pain Chief Complaint The Chief Complaint is: Left thumb pain/R middle finger pain. Patient complains of bilateral thumb pain as well as right long finger pain. She also complains of the finger catching. Referred Here Referred by pcp. History of Present Illness Mariana Villaseñor is a 63 year old female. - Symptoms ice and heat makes pain better. - Allergy list reviewed - Problem list reviewed - Medication reconciliation performed - Medication list reviewed with patient - Previous history of new onset pain 02/01/2023 Injury is not work related or an automotive accident. caught finger in door - Pain is constant (100% of the time) - Pain is dull, aching - Patient pain level from 1-10: 5 - Yes, previous treatment. PCP - History of Chiropractic Current Medication - Alpha Lipoic Acid 200 MG Oral Capsule 30 days, 0 refills - DULoxetine HCl 60 MG Oral Capsule Delayed Release Particles 90 days, 0 refills - Gabapentin 400 MG Oral Capsule 90 days, 0 refills - metFORMIN HCl ER 500 MG Oral Tablet Extended Release 24 Hour 90 days, 0 refills - Rheumate Oral Capsule 90 days, 0 refills Past Medical/Surgical History Reported: Medical: Thyroid disease and joint problems arthritic. Intermittent hypertension. Medications: A recent injection. Immunization History: Recent immunization for flu 08/20/2020. No recent immunization for pneumococcal pneumonia. Diagnoses: Heart disease. Thyroid Disease Hypertension. Diabetes mellitus. Arthritis Past surgical history non-contributory: Foot & hand sx. Surgical: - Heart surgery - Past Surgical History: 07/16/2019 Right CTR @ [facility] [place] 06/29/2021 Left CTR with transposition @ [facility] [place] - Back surgery Social History Not a current smoker. Not a current smoker. Current diet: No recent change in diet. No recent change in diet. Caffeine use: No caffeine use. Tobacco use: No tobacco use and not a current smoker. Tobacco non-user and non-smoker. Smoking status: Never smoker. Alcohol: Not using alcohol. Drug Use: Not using drugs. Habits: Exercising regularly 2-3 times a week. Allergies - Crestor - Darvocet A500 - Lipitor - plavix Family History Cancer Heart disease Diabetes mellitus Maternal: Cancer Fraternal: Heart disease Diabetes mellitus Review Of Systems Systemic: Not feeling tired, no recent weight loss, and no recent weight gain. Head: No headache and no sinus pain. Eyes: No vision problems, no Cataracts, no Glasses/Contacts, and no Glaucoma. Otolaryngeal: No hearing loss and no tinnitus. Cardiovascular: No chest pain or discomfort, no palpitations, no Hypertension, and no High Cholesterol. Pulmonary: No daytime asthma symptoms and no chronic cough. No wheezing. Gastrointestinal: No heartburn and no abdominal pain. No Indigestion, no Acid Reflux, no Peptic Ulcer, no GI Stomach Bleed, and no Ulcers. Endocrine: No hot flashes, no muscle weakness, no Diabetes, no Hypothyroid, and no Hyperthyroid. Hematologic: No easy bleeding, no tendency for easy bruising, and no Anemia. Musculoskeletal: No Arthritis and no lower back pain. No soft tissue swelling and no localized joint pain. Neurological: No dizziness, no convulsions, and no numbness. Psychological: No anxiety, no emotional lability, no depression, and no insomnia. Not crying for no reason. Skin: No dry skin. No Ulcers, no Scars, and no rash. Allergic and Immunologic: No complaint of seasonal allergic reaction. reviewed 07/19/23 Physical Findings - Vitals taken 07/19/2023 10:15 am Height 64 in 59 - 78 Weight 183 lbs 96 - 178 Body Mass Index 31.4 kg/m2 Body Surface Area 1.9 m2 The patient is awake alert oriented in time place and person. Has normal mood and affect. Is neatly dressed. Has normal gait and station. Pupils are equal and react to light normally. Eyes move normally. Mucous membranes are moist. The patient has no trouble with speech. Patient is tender at the base of both thumb CMC joints. Patient is tender over the right long finger A1 sylvia with triggering. Normal circulation. Normal sensation Tests X-rays of both thumbs show mild degenerative changes at the CMC joints Assessment - Overweight Previous Tests Imaging: X-Ray: An X-ray was performed. Counseling/Education - Lose weight Plan After consent had been obtained the Right thumb CMC was injected with 0.5 cc of Kenalog-10 and 0.5 cc of 1% lidocaine. The patient tolerated the injection well. After consent had been obtained the left thumb CMC joint was injected with 0.5 cc of Kenalog-10 and 0.5 cc of 1% lidocaine. The patient tolerated the injection well. After consent had been obtained the right long finger A1 sylvia was injected with 0.5 cc of Kenalog-10 and 0.5 cc of 1% lidocaine. The patient tolerated the injection well. Practice Management Use of tobacco assessment performed Review of medications documented. Care Team - VONDA CEJA MD - [facility]PR[facility] Notes This dictation was done with voice recognition software and may contain errors and omissions. * Progress note Date Encounter Last Documented by 07/10/2023 Physician Specified Last documen jerrell on 07/10/2023; 8:38 PM, Art Vizcarra MD; [facility] Active Problems & Conditions - Joint Pain Fingers of Both Hands - Joint Pain in the Right Knee - Joint Pain, Localized in Both Shoulders - Lower Back Pain - Neck Pain Chief Complaint The Chief Complaint is: Right knee pain. History of Present Illness Mariana Villaseñor is a 63 year old female. - Allergy list reviewed - Problem list reviewed - Medication list reviewed Mariana is here for a new problem with both knees but mostly the right knee. This has been going on for several months. She is having difficulty squatting on it. The pain is felt medially but also along the lateral side of the knee down to the mid leg and lateral thigh. It is a burning sensation. No redness or heat. No instability. Current Medication - CVS D3 10 MCG (400 UNIT) Oral Capsule take as directed 0 days, 0 refills - DULoxetine HCl 30 MG Oral Capsule Delayed Release Particles take as directed 90 days, 0 refills - Euthyrox 88 MCG Oral Tablet 90 days, 0 refills - Ezetimibe 10 MG Oral Tablet 90 days, 0 refills - Gabapentin 400 MG Oral Capsule 90 days, 0 refills - Levothyroxine Sodium 75 MCG Oral Tablet take as directed 0 days, 0 refills - Losartan Potassium 50 MG Oral Tablet take as directed 30 days, 0 refills - Losartan Potassium 50 MG Oral Tablet take as directed 30 days, 0 refills - Lovastatin 40 MG Oral Tablet 90 days, 0 refills - metFORMIN HCl 500 MG Oral Tablet 90 days, 0 refills - Methocarbamol 750 MG Oral Tablet 90 days, 0 refills - Nitrostat 0.4 MG Sublingual Tablet Sublingual take as directed 0 days, 0 refills - Synthroid 75 MCG Oral Tablet take as directed 90 days, 0 refills Past Medical/Surgical History Reported: Medical: Thyroid disease and joint problems arthritic. Intermittent hypertension. Medications: A recent injection. Immunization History: Recent immunization for flu 08/20/2020. No recent immunization for pneumococcal pneumonia. Diagnoses: Heart disease. Thyroid Disease Hypertension. Diabetes mellitus. Arthritis Past surgical history non-contributory: Foot & hand sx. Surgical: - Heart surgery - Heart surgery - Past Surgical History: 07/16/2019 Right CTR @ [facility] [place] 06/29/2021 Left CTR with transposition @ [facility] [place] - Back surgery - Back surgery Social History Not a current smoker. Current diet: No recent change in diet. Caffeine use: No caffeine use. Tobacco use: No tobacco use and not a current smoker. Non-smoker. Smoking status: Never smoker. Alcohol: Not using alcohol. Drug Use: Not using drugs. Habits: Exercising regularly 2-3 times a week. Allergies - Crestor - Darvocet A500 - Lipitor - plavix Family History Cancer Heart disease Diabetes mellitus Maternal: Cancer Fraternal: Heart disease Diabetes mellitus Physical Findings - Vitals taken 07/10/2023 01:51 pm dp Height 64 in 59 - 78 Weight 185 lbs 96 - 178 Body Mass Index 31.8 kg/m2 Body Surface Area 1.9 m2 The patient has normal gait and station. She has normal mood, affect and orientation. She has a well-groomed appearance. Full pain-free range of motion in both hips. Normal alignment right knee. There is full extension and full flexion. Complete stability of the cruciate and collateral ligaments. No effusion. No redness or heat. Skin is intact. there is marked tenderness on the medial and posterior medial joint line as well as the lateral joint line and she cannot squat on it. Negative straight leg raise. Negative Lasegue's sign. Grossly normal motor and sensory function. Grossly normal vascular status. Tests 5 Views of the right knee including a unicompartmental series shows no significant narrowing of the medial compartment which restores with a stress view and flexion lateral. Patellofemoral joint is intact as is the lateral compartment. Plan she has chronic pain in the knee but has good cartilage space on radiographs no sign of significant arthritis but has joint line tenderness all consistent with probable meniscal tear. I recommendation is we get an MRI to sort this out. Care Team - VONDA CEJA MD - DAMAGE APPRAISER Notes This dictation was done with voice recognition software and may contain errors and omissions.
--- OUTSIDE RECORDS SUMMARY | 2024-03-23 11:40 | XMS_ITS | Clinical Summary ---
Author Name Unknown Address [address] [address] Phone Organization [facility] , [facility] Address [address] [place] [address] Phone Care Team Providers Care Printed Circuit Boards Pinner Name Role Phone MARCIAL CHEUNG, VONDA Unavailable [phone] Danilo CHEUNG, Tj Agustin Unavailable [phone] Reason for Visit and Chief Complaint MRI Problems Includes: Problems addressed during this encounter and other active Problems All Visits Onset Date Resolved Date Provider Condition S tatus Joint Pain in the Right Knee 07/10/2023 Art Vizcarra MD Active Last Documented On 3 1:51PM ; [facility], [facility] Neck Pain 07/07/2021 Neo Sandhu MD Active Last Documented On 1 8:43AM ; [facility], [facility] Lower Back Pain 07/07/2021 Neo Sandhu MD A ctive Last Documented On 1 8:43AM ; [facility], [facility] Joint Pain, Localized in Both Shoulders 07/21/2020 Haider Madera MD Active Last Documented On 0 3:28PM ; [facility], [facility] Joint Pain Fingers of Both Hands 05/20/2019 Isaac Carrasco MD Active Last Documented On 9 8:23AM ; [facility], [facility] Plan of Treatment Future Appointments Date Time Location Provi [facility]pa [facility] Surgery Suites 04/11/2024 10:15AM Surgery Tj agustin MD Last Documented On 4 1:59PM ; [facility] Post Op 04/24/2024 8:45AM [facility] C Tj Carrasco MD Last Documented On 4 2:00PM ; [facility], [facility] Assessments Includes: Assessments from this encounter No Assessments Recorded Medical Equipment - Implanted Devices Includes: Current Devices No Medical Equipment Recorded Medications Includes: Medications discussed during this encounter and other current Medications Discontinued / Stopped on this date on 10/18/2021 Levothyroxine Sodium 75 MCG Oral Tablet P rovider: Diagnosis: Last Documented On 3 10:03AM By Garth Cramer ; [facility], [facility] Losartan Potassium 50 MG Oral Tablet Prov ider: Therese Gomes APRN Diagnosis: Last Documented On 3 10:03AM By Garth Cramer ; [facility] Synthroid 75 MCG Oral Tablet Provider: IONA GALEANO MD Diagnosis: Last Documented On 3 10:03AM By Garth Cramer ; [facility] Losartan Potassium 50 MG Oral Tablet Prov ider: Diagnosis: Last Documented On 3 10:04AM By Garth Cramer ; [facility] DULoxetine HCl 30 MG Oral Ca psule Delayed Release Particles Provider: DAVIS LEDEZMAP Diagnosis: Last Documented On 3 10:04AM By Garth Cramer ; [facility] Nitrostat 0.4 MG Sublingual Tablet Sublingual Provider: Diagnosis: Last Documented On 3 10:04AM By Garth Cramer ; [facility] CVS D3 10 MCG (400 UNIT) Oral Capsule Pro vider: Diagnosis: Last Documented On 3 10:04AM By Garth Cramer ; [facility] Euthyrox 88 MCG Oral Tablet Provider: Alec Villa Diagnosis: Last Documented On 3 10:04AM By Garth Cramer ; [facility] Gabapentin 400 MG Oral Capsule Provider: JUAN DAVID COTO MD Diagnosis: Last Documented On 3 10:04AM By Garth Cramer ; [facility] Lovastatin 40 MG Oral Tablet Provider: Alec Villa Diagnosis: Last Documented On 3 10:04AM By Garth Cramer ; [facility] Methocarbamol 750 MG Oral Tablet Provider : JUAN DAVID COTO MD Diagnosis: Last Documented On 3 10:04AM By Garth Cramer ; [facility] Ezetimibe 10 MG Oral Tablet Provider: SIMRAN DEL CASTILLO MD Diagnosis: Last Documented On 3 10:04AM By Garth Cramer ; [facility] metFORMIN HCl 500 MG Oral Tablet Provider : IONA GALEANO MD Diagnosis: Last Documented On 3 10:03AM By Garth Cramer ; [facility], [facility] Current Medications (continue as prescribed) Ozempic (0.25 or 0.5 MG/DOSE ) 2 MG/1.5ML Subcutaneous Solution Pen-injector 11/29/2023 Provider: Diagnosis: Last Documented On 4 10:45AM By Natasha Figueredo ; [facility], [facility] Alpha Lipoic Acid 200 MG Oral Capsule 07/13/2023 Pro vider: KATHRYN MARISCAL MD Diagnosis: Last Documented On 3 10:03AM By Garth Cramer ; [facility], [facility] Rheumate Oral Capsule 07/13/2023 Provider: KATHRYN ARMENTA MD Diagnosis: Last Documented On 3 10:03AM By Garth Cramer ; [facility], [facility] metFORMIN HCl ER 500 MG Oral Tablet Extended Rel ease 24 Hour 07/11/2023 Provider: Diagnosis: Last Documented On 3 10:03AM By Garth Cramer ; [facility], [facility] Gabapentin 400 MG Oral Capsule 07/03/2023 Provider: JUAN DAVID COTO MD Diagnosis: Last Documented On 3 10:03AM By Garth Cramer ; [facility], [facility] DULoxetine HCl 60 MG Oral Ca psule Delayed Release Particles 07/03/2023 Provider: JUAN DAVID COTO MD Diagnosis: Last Documented On 3 10:03AM By Garth Cramer ; [facility], [facility] Medications Administered Includes: Administered Medications from this encounter No Administered Medications Recorded Results Includes: Results discussed during this encounter No Results Recorded For Specified Dates History of Present Illness Includes: History of Present Illness from this encounter No History of Present Illness Recorded Social History No Social History Recorded - Smoking Status Unknown Procedures and Surgical History Includes: Procedures from this encounter Procedures Code Diagnosis Performing Provider Service Location Service Date MRI JNT OF LWR EXTRE W/O DYE (RIGHT) 58985 Pain in right knee Art Vizcarra MD [facility] 07/19/2023 Last Documented On 3 7:55AM ; [facility] Medical History Includes: Medical History addressed during [...] 4 1:27PM ; [facility] Encounters Encounter Provider Location Date Check-In Time Check-Out Time Diagnosis MRI [facility] 07/19/2023 2:04PM 2:19PM Insurance Includes: Active Insurance Policies Plan Name Member ID Group # Subscriber Relationship Effect ania Dates 1 - BCBS ([place]) Medicare [id number] Mariana Villaseñor Self Clinical Notes Includes: Clinical Notes from this encounter No Clinical Notes Recorded
--- OUTSIDE RECORDS SUMMARY | 2024-03-23 11:40 | XMS_ITS | Clinical Summary ---
Author Name Unknown Address [address] [place] [address] Phone Organization [facility] , [facility] Address [address] [place] [address] Phone Care Team Providers Care Device Test Engineer Name Role Phone MARCIAL CHEUNG, VONDA Unavailable [phone] Tj Carrasco MD Unavailable [phone] Reason for Visit and Chief Complaint The Chief Complaint is: right knee pain Problems Includes: Problems addressed during this encounter and other active Problems All Visits Onset Date Resolved Date Provider Condition S tatus Joint Pain in the Right Knee 07/10/2023 Art Vizcarra MD Active Last Documented On 3 1:51PM ; [facility], [facility] Neck Pain 07/07/2021 Neo Sandhu MD Active Last Documented On 1 8:43AM ; [facility], [facility] Lower Back Pain 07/07/2021 Neo Sandhu MD A ctive Last Documented On 1 8:43AM ; [facility], [facility] Joint Pain, Localized in Both Shoulders 07/21/2020 Haider Madera MD Active Last Documented On 0 3:28PM ; [facility], [facility] Joint Pain Fingers of Both Hands 05/20/2019 Isaac Carrasco MD Active Last Documented On 9 8:23AM ; [facility], [facility] Plan of Treatment She has chronic pain in the knee [...] intervention. 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 - Last Documented On 07/25/2023 11:35AM ; [facility], [facility] Future Appointments Date Time Location [facility] Surgery Suites 04/11/2024 10:15AM Surgery Tj agustin MD Last Documented On 4 1:59PM ; [facility] Post Op 04/24/2024 8:45AM [facility] C Tj Carrasco MD Last Documented On 4 2:00PM ; [facility] Assessments Includes: Assessments from this encounter No Assessments Recorded Medical Equipment - Implanted Devices Includes: Current Devices No Medical Equipment Recorded Medications Includes: Medications discussed during this encounter and other current Medications Current Medications (continue as prescribed) Ozempic (0.25 or 0.5 MG/DOSE ) 2 MG/1.5ML Subcutaneous Solution Pen-injector 11/29/2023 Provider: Diagnosis: Last Documented On 4 10:45AM By Natasha Figueredo ; [facility], [facility] Alpha Lipoic Acid 200 MG Oral Capsule 07/13/2023 Pro vider: KATHRYN MARISCAL MD Diagnosis: Last Documented On 3 10:03AM By Garth Ramos [facility], [facility] Rheumate Oral Capsule 07/13/2023 Provider: KATHRYN ARMENTA MD Diagnosis: Last Documented On 3 10:03AM By Garth Ramos [facility], [facility] metFORMIN HCl ER 500 MG Oral Tablet Extended Rel ease 24 Hour 07/11/2023 Provider: Diagnosis: Last Documented On 3 10:03AM By Garth Cramer ; [facility], [facility] Gabapentin 400 MG Oral Capsule 07/03/2023 Provider: JUAN DAVID GALICIA MD Diagnosis: Last Documented On 3 10:03AM By Garth Cramer ; [facility] DULoxetine HCl 60 MG Oral Ca psule Delayed Release Particles 07/03/2023 Provider: JUAN DAVID GALICIA MD Diagnosis: Last Documented On 3 10:03AM By Garth Cramer ; [facility] Past Medications on file Ativan 1 MG Oral Tablet 07/18/2023 - 07/19/2023 Provid er: Art Vizcarra MD Diagnosis: take as directed; Take 1 tab let 1 hour before MRI; May take an additional tablet if needed. Last Documented On 3 3:09PM By Dr. Vizcarra ; [facility] Medications Administered Includes: Administered Medications from this encounter No Administered Medications Recorded Vital Signs Includes: Vital Signs from this encounter Vital Name 07/25/2023 10:49A Height (in) 64 Weight (lb) 185 Body Mass Index 31.8 Body Surface Area 1.9 Note: mg Last Documented: On 07/25/2023 10:49A M ; [facility] Results Includes: Results discussed during this encounter No Results Recorded For Specified Dates History of Present Illness Includes: History of Present Illness from this encounter HPI Mariana Villaseñor is a 63 year old [...] sensation. No redness or heat. No instability. Social History Description Last Updated Non-smoker 11/17/2021 Last Documented On 3 10:48AM ; [facility] Exercising regularly 2-3 times a week Last Documented On 3 10:48AM ; [facility] No caffeine use 08/23/2021 Last Documented On 3 10:48AM ; [facility], [facility] No recent change in diet 08/23/2021 Last Documented On 3 10:48AM ; [facility] Not a current smoker. 07/21/2020 Last Documented On 3 10:48AM ; [facility] No tobacco use 07/21/2020 Last Documented On 3 10:48AM ; [facility] Not a current smoker 07/21/2020 Last Documented On 3 10:48AM ; [facility] Not using alcohol 07/21/2020 Last Documented On 3 10:48AM ; [facility] Not using drugs 07/21/2020 Last Documented On 3 10:48AM ; [facility] Smoking status : Never smoker 07/21/2020 Last Documented On 3 10:48AM ; [facility], [facility] Procedures and Surgical History Surgical History Last Updated History of back surgery 07/21/2020 Last Documented On 3 10:48AM ; [facility] History of heart surgery 07/21/2020 Last Documented On 3 10:48AM ; [facility], [facility] Medical History Includes: Medical History addressed during this encounter Description Last Updated Recent immunization for flu 08/20/2020 1 Last Documented On 3 10:48AM ; [facility], [facility] Past Surgical History: 07/16 Right CTR @ [facility] [place] ~06/29/2021 Left CTR with transposition @ [facility] [place] 07/12/2021 Last Documented On 3 10:48AM ; [facility], [facility] Past surgical history non-contributory: Foot & hand sx 07/21/2020 Last Documented On 3 10:48AM ; [facility] Arthritis 07/21/2020 Last Documented On 3 10:48AM ; [facility] Back surgery 07/21/2020 Last Documented On 3 10:48AM ; [facility], [facility] Heart surgery 07/21/2020 Last Documented On 3 10:48AM ; [facility] Hypertension 07/21/2020 Last Documented On 3 10:48AM ; [facility], [facility] No recent immunization for pneumococcal pneumonia 07/21/2020 Last Documented On 3 10:48AM ; [facility] Thyroid Disease 07/21/2020 Last Documented On 3 10:48AM ; [facility], [facility] A recent injection 07/21/2020 Last Documented On 3 10:48AM ; [facility], [facility] Arthritic joint problems 07/21/2020 Last Documented On 3 10:48AM ; [facility] History of diabetes mellitus 07/21/2020 Last Documented On 3 10:48AM ; [facility] History of heart disease 07/21/2020 Last Documented On 3 10:48AM ; [facility] Intermittent hypertension 07/21/2020 Last Documented On 3 10:48AM ; [facility] Thyroid disease 07/21/2020 Last Documented On 3 10:48AM ; [facility] Family History Includes: Family History addressed during this encounter Description Last Updated Family history of cancer 08/25/2021 Last Documented On 3 10:48AM ; [facility], [facility] Diabetes mellitus 08/23/2021 Last Documented On 3 10:48AM ; [facility] Family history of heart disease 08/23/20 21 Last Documented On 3 10:48AM ; [facility] Fraternal history of diabetes mellitus 0 07/21/2020 Last Documented On 3 10:48AM ; [facility] Fraternal history of family history of h eart disease 07/21/2020 Last Documented On 3 10:48AM ; [facility], [facility] Maternal history of family history of ca ncer 07/21/2020 Last Documented On 3 10:48AM ; [facility] Review of Systems Includes: Review of Systems from this encounter No Review of Systems Recorded Mental Status Includes: Mental Status from this encounter No Mental Status Recorded Functional Status Includes: Functional Status from this encounter No Functional Status Recorded Physical Exam Includes: Physical Exam from this encounter Allergies Includes: Active Allergies Substance Type Reaction Onset Date Resolved Date Statu s plavix Allergy 07/16/2012 Active Last Documented On 4 1:27PM ; [facility], [facility] Lipitor Allergy 05/20/2019 Active Last Documented On 4 1:27PM ; [facility] Darvocet A500 Allergy 07/16/2012 Activ e Last Documented On 4 1:27PM ; [facility] Crestor Allergy 05/20/2019 Active Last Documented On 4 1:27PM ; [facility] Encounters Encounter Provider Location Date Check-In Time Check- Out Time Diagnosis Follow Up Art Vizcarra MD [facility] 3 10:10AM 11:38AM Insurance Includes: Active Insurance Policies Plan Name Member ID Group # Subscriber Relationship Effect ania Dates 1 - BCBS ([place]) Medicare [id number] Mariana Villaseñor Self Clinical Notes Includes: Clinical Notes from this encounter * Progress note Date Encounter Last Documented by 07/25/2023 Follow Up Last documented on 07/25/2023; 11:35 AM, Art Vizcarra MD; [facility] Active Problems & Conditions - Joint [...] Past Surgical History: 07/16/2019 Right CTR @ [facility] [place] 06/29/2021 Left CTR with transposition @ [facility] [place] - Back surgery - Back surgery Social [...] intervention. 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 Care Team - VONDA CEJA MD - PEOPLESOFT DEVELOPER Notes This dictation was done with voice recognition software and may contain errors and omissions.
--- OUTSIDE RECORDS SUMMARY | 2024-03-23 11:40 | XMS_ITS | Clinical Summary ---
Author Name Unknown Address [address] [place] [address] Phone Organization [facility] Address [address] [place] [address] Phone Care Team Providers Care Dish Up Person Name Role Phone MARCIAL CHEUNG, VONDA Unavailable [phone] Danilo CHEUNG, Tj Agustin Unavailable [phone] Reason for Referral Date Encounter Description Provider Reason for Referral 01/31/24 Follow Up Tj Carrasco MD Referra l To Physician Reason for Visit and Chief Complaint The Chief Complaint is: Left thumb pain/R middle finger pain Problems Includes: Problems addressed during this encounter and other active Problems Current Visit Onset Date Resolved Date Provider Conditio n Status Lower Back Pain 07/07/2021 Neo Sandhu MD A ctive Last Documented On 1 8:43AM ; [facility] Past Visits Onset Date Resolved Date Provider Condition Status Joint Pain in the Right Knee 07/10/2023 Art Vizcarra MD Active Last Documented On 3 1:51PM ; [facility] Neck Pain 07/07/2021 Neo Sandhu MD Active Last Documented On 1 8:43AM ; [facility] Joint Pain, Localized in Both Shoulders 07/21/2020 Haider Madera MD Active Last Documented On 0 3:28PM ; [facility] Joint Pain Fingers of Both Hands 05/20/2019 Isaac Carrasco MD Active Last Documented On 9 8:23AM ; [facility] Plan of Treatment I explained to the patient that the [...] We will see the patient back postop. - Last Documented On 02/05/2024 6:49PM ; [facility], [facility] Future Appointments Date Time Location [facility] 04/11/2024 10:15AM Surgery Tj agustin MD Last Documented On 4 1:59PM ; [facility] Post Op 04/24/2024 8:45AM [facility] PS C Tj Carrasco MD Last Documented On 4 2:00PM ; [facility] Instructions to patient Lose weight Last Documented On 4 1:27PM ; [facility] Assessments Includes: Assessments from this encounter No Assessments Recorded Instructions Includes: Instructions from this encounter Instructions to patient Lose weight Last Documented On 4 1:27PM ; [facility] Medical Equipment - Implanted Devices Includes: Current Devices No Medical Equipment Recorded Medications Includes: Medications discussed during this encounter and other current Medications Current Medications (continue as prescribed) Ozempic (0.25 or 0.5 MG/DOSE ) 2 MG/1.5ML Subcutaneous Solution Pen-injector 11/29/2023 Provider: Diagnosis: Last Documented On 4 10:45AM By Natasha Figueredo ; [facility], [facility] Alpha Lipoic Acid 200 MG Oral Capsule 07/13/2023 Pro vider: KATHRYN MARISCAL MD Diagnosis: Last Documented On 3 10:03AM By Garth Ramos [facility], [facility] Rheumate Oral Capsule 07/13/2023 Provider: KATHRYN ARMENTA MD Diagnosis: Last Documented On 3 10:03AM By Garth Cramer ; [facility], [facility] metFORMIN HCl ER 500 MG Oral Tablet Extended Rel ease 24 Hour 07/11/2023 Provider: Diagnosis: Last Documented On 3 10:03AM By Garth Cramer ; [facility], [facility] Gabapentin 400 MG Oral Capsule 07/03/2023 Provider: JUAN DAVID COTO MD Diagnosis: Last Documented On 3 10:03AM By Garth Cramer ; [facility], [facility] DULoxetine HCl 60 MG Oral Ca psule Delayed Release Particles 07/03/2023 Provider: JUAN DAVID COTO MD Diagnosis: Last Documented On 3 10:03AM By Garth Cramer ; [facility], [facility] Past Medications on file Ativan 1 MG Oral Tablet 07/18/2023 - 07/19/2023 [facility] er: Art Vizcarra MD Diagnosis: take as directed; Take 1 tab let 1 hour before MRI; May take an additional tablet if needed. Last Documented On 3 3:09PM By Dr. Vizcarra ; [facility], [facility] Medications Administered Includes: Administered Medications from this encounter No Administered Medications Recorded Vital Signs Includes: Vital Signs from this encounter Vital Name 01/31/2024 01:28P Height (in) 64 Weight (lb) 165 Body Mass Index 28.3 Body Surface Area 1.8 Note: Last Documented: On 01/31/2024 1:28PM ; [facility], [facility] Results Includes: Results discussed during this encounter [...] has previously undergone R CTR in 2019. Social History Description Last Updated Non-smoker 11/17/2021 Last Documented On 4 1:27PM ; [facility] Exercising regularly 2-3 times a week Last Documented On 4 1:27PM ; [facility], [facility] No caffeine use 08/23/2021 Last Documented On 4 1:27PM ; [facility], [facility] No recent change in diet 08/23/2021 Last Documented On 4 1:27PM ; [facility], [facility] Not a current smoker. 07/21/2020 Last Documented On 4 1:27PM ; [facility], [facility] No tobacco use 07/21/2020 Last Documented On 4 1:27PM ; [facility], [facility] Not a current smoker 07/21/2020 Last Documented On 4 1:27PM ; [facility], [facility] Not using alcohol 07/21/2020 Last Documented On 4 1:27PM ; [facility], [facility] Not using drugs 07/21/2020 Last Documented On 4 1:27PM ; [facility], [facility] Smoking status : Never smoker 07/21/2020 Last Documented On 4 1:27PM ; [facility], [facility] Procedures and Surgical History Includes: Procedures from this encounter Procedures Code Diagnosis Performing Provider Service L ocation Service Date use of tobacco assessment performed 1000F Last Documented On 4 1:27PM ; [facility], [facility] referral to physician Last Documented On 4 1:27PM ; [facility], [facility] an X-ray was performed 18344 Last Documented On 4 1:27PM ; [facility], [facility] Surgical History Last Updated History of back surgery 07/21/2020 Last Documented On 4 1:27PM ; [facility], [facility] History of heart surgery 07/21/2020 Last Documented On 4 1:27PM ; [facility], [facility] Medical History Includes: Medical History addressed during this encounter Description Last Updated Recent immunization for flu 08/20/2020 1 Last Documented On 4 1:27PM ; [facility] Past Surgical History: 07/16 [place] [facility] [place] Left CTR with transposition @ [facility] [place]/12/2021 Last Documented On 4 1:27PM ; [facility], [facility] Past surgical history non-contributory: Foot & hand sx 07/21/2020 Last Documented On 4 1:27PM ; [facility] Arthritis 07/21/2020 Last Documented On 4 1:27PM ; [facility] Back surgery 07/21/2020 Last Documented On 4 1:27PM ; [facility] Heart surgery 07/21/2020 Last Documented On 4 1:27PM ; [facility] Hypertension 07/21/2020 Last Documented On 4 1:27PM ; [facility] No recent immunization for pneumococcal pneumonia 07/21/2020 Last Documented On 4 1:27PM ; [facility] Thyroid Disease 07/21/2020 Last Documented On 4 1:27PM ; [facility] A recent injection 07/21/2020 Last Documented On 4 1:27PM ; [facility] Arthritic joint problems 07/21/2020 Last Documented On 4 1:27PM ; [facility] History of diabetes mellitus 07/21/2020 Last Documented On 4 1:27PM ; [facility] History of heart disease 07/21/2020 Last Documented On 4 1:27PM ; [facility] Intermittent hypertension 07/21/2020 Last Documented On 4 1:27PM ; [facility] Thyroid disease 07/21/2020 Last Documented On 4 1:27PM ; [facility] Family History Includes: Family History addressed during this encounter Description Last Updated Family history of cancer 08/25/2021 Last Documented On 4 1:27PM ; [facility] Diabetes mellitus 08/23/2021 Last Documented On 4 1:27PM ; [facility] Family history of heart disease 08/23/20 Last Documented On 4 1:27PM ; [facility] Fraternal history of diabetes mellitus 0 07/21/2020 Last Documented On 4 1:27PM ; [facility] Fraternal history of family history of h eart disease 07/21/2020 Last Documented On 4 1:27PM ; [facility] Maternal history of family history of ca ncer 07/21/2020 Last Documented On 4 1:27PM ; [facility] Review of Systems Includes: Review of Systems from this encounter Systemic: Not feeling tired, no recent weight [...] atrophy. Normal strength. Tender RLF A1 sylvia. Mental Status Includes: Mental Status from this encounter Description No anxiety Functional Status Includes: Functional Status from this encounter No Functional Status Recorded Physical Exam Includes: Physical Exam from this encounter Allergies Includes: Active Allergies Substance Type Reaction Onset Date Resolved Date Statu s plavix Allergy 07/16/2012 Active Last Documented On 4 1:27PM ; [facility] Lipitor Allergy 05/20/2019 Active Last Documented On 4 1:27PM ; [facility] Darvocet A500 Allergy 07/16/2012 Activ e Last Documented On 4 1:27PM ; [facility] Crestor Allergy 05/20/2019 Active Last Documented On 4 1:27PM ; [facility] Encounters Encounter Provider Location Date Check-In Time Check- Out Time Diagnosis Follow Up Tj Carrasco MD [facility] 4 1:24PM 1:45PM Insurance Includes: Active Insurance Policies Plan Name Member ID Group # Subscriber Relationship Effect ania Dates 1 - [employer] ([place]) Medicare [id number] Mariana Villaseñor Self Clinical Notes Includes: Clinical Notes from this encounter * Progress note Date Encounter Last Documented by 01/31/2024 Follow Up Last documented on 02/05/2024; 6:49 PM, Tj Carrasco MD; [facility] Active Problems & Conditions - [...] Past Surgical History: 07/16/2019 [place] [facility] [place]21 Left CTR with transposition [place] [facility] [place] Back surgery - Back surgery Social [...] Care Team - VONDA CEJA MD - SECURITY INVESTIGATOR Notes This dictation was done with voice recognition software and may contain errors and omissions. transcribed by Remy Mccormick
--- OUTSIDE RECORDS SUMMARY | 2024-03-23 11:40 | XMS_ITS ---
Care Plan - [facility] Created on: March 23, 2024 Mariana Villaseñor V : 1960 Sex: Female Author Name Unknown Address [address] [address] Phone Organization [facility] Address [address] [place] [address] Phone Care Team Providers Care Psych Coordinator Name Role Phone MARCIAL CHEUNG, VONDA Unavailable [phone] Danilo CHEUNG, Tj Early Unavailable [phone]
--- OUTSIDE RECORDS SUMMARY | 2024-03-23 11:40 | XMS_ITS | Clinical Summary ---
Author Name Unknown Address [address] [place] [address] Phone Organization [facility] , [facility] Address [address] [place] [address] Phone Care Team Providers Care Shipping Coordinator Name Role Phone MARCIAL CHEUNG, VONDA Unavailable [phone] Danilo CHEUNG, Tj Agustin Unavailable [phone] Reason for Referral Date Encounter Description Provider Reason for Referral 11/29/23 Follow Up Tj Carrasco MD Referra l To Physician Reason for Visit and Chief Complaint The Chief Complaint is: Left thumb pain/R middle finger pain Problems Includes: Problems addressed during this encounter and other active Problems Current Visit Onset Date Resolved Date Provider Conditio n Status Lower Back Pain 07/07/2021 Neo Sandhu MD A ctive Last Documented On 1 8:43AM ; [facility] Past Visits Onset Date Resolved Date Provider Condition Status Joint Pain in the Right Knee 07/10/2023 Art Vizcarra MD Active Last Documented On 3 1:51PM ; [facility] Neck Pain 07/07/2021 Neo Sandhu MD Active Last Documented On 1 8:43AM ; [facility] Joint Pain, Localized in Both Shoulders 07/21/2020 Haider Madera MD Active Last Documented On 0 3:28PM ; [facility] Joint Pain Fingers of Both [...] lidocaine. The patient tolerated the injection well. - Last Documented On 12/05/2023 1:24PM ; [facility] Future Appointments Date Time Location [facility] 04/11/2024 10:15AM Surgery Tj agustin MD Last Documented On 4 1:59PM ; [facility] Post Op 04/24/2024 8:45AM [facility] PS C Tj Carrasco MD Last Documented On 4 2:00PM ; [facility] Instructions to patient Lose weight Last Documented On 4 10:45AM ; [facility] Assessments Includes: Assessments from this encounter No Assessments Recorded Instructions Includes: Instructions from this encounter Instructions to patient Lose weight Last Documented On 4 10:45AM ; [facility] Medical Equipment - Implanted Devices Includes: Current Devices No Medical Equipment Recorded Medications Includes: Medications discussed during this encounter and other current Medications Current Medications (continue as prescribed) Ozempic (0.25 or 0.5 MG/DOSE ) 2 MG/1.5ML Subcutaneous Solution Pen-injector 11/29/2023 Provider: Diagnosis: Last Documented On 4 10:45AM By Natasha Figueredo ; [facility] Alpha Lipoic Acid 200 MG Oral Capsule 07/13/2023 Pro vider: KATHRYN MARISCAL MD Diagnosis: Last Documented On 3 10:03AM By Garth Cramer ; [facility] Rheumate Oral Capsule 07/13/2023 Provider: KATHRYN ARMENTA MD Diagnosis: Last Documented On 3 10:03AM By Garth Cramer ; [facility] metFORMIN HCl ER 500 MG Oral Tablet Extended Rel ease 24 Hour 07/11/2023 Provider: Diagnosis: Last Documented On 3 10:03AM By Garth Cramer ; [facility] Gabapentin 400 MG Oral Capsule 07/03/2023 Provider: JUAN DAVID COTO MD Diagnosis: Last Documented On 3 10:03AM By Garth Cramer ; [facility], [facility] DULoxetine HCl 60 MG Oral Ca psule Delayed Release Particles 07/03/2023 Provider: JUAN DAVID COTO MD Diagnosis: Last Documented On 3 10:03AM By Garth Cramer ; [facility] Past Medications on file Ativan 1 MG Oral Tablet 07/18/2023 - 07/19/2023 Provid er: Art Vizcarra MD Diagnosis: take as directed; Take 1 tab let 1 hour before MRI; May take an additional tablet if needed. Last Documented On 3 3:09PM By Dr. Vizcarra ; [facility] Medications Administered Includes: Administered Medications from this encounter No Administered Medications Recorded Vital Signs Includes: Vital Signs from this encounter Vital Name 11/29/2023 10:45A Height (in) 64 Weight (lb) 165 Body Mass Index 28.3 Body Surface Area 1.8 Note: Last Documented: On 11/29/2023 10:45A M ; [facility] Results Includes: Results discussed during this encounter [...] She feels aching in the left elbow. Social History Description Last Updated Non-smoker 11/17/2021 Last Documented On 4 10:44AM ; [facility], [facility] Exercising regularly 2-3 times a week Last Documented On 4 10:44AM ; [facility], [facility] No caffeine use 08/23/2021 Last Documented On 4 10:44AM ; [facility], [facility] No recent change in diet 08/23/2021 Last Documented On 4 10:44AM ; [facility], [facility] Not a current smoker. 07/21/2020 Last Documented On 4 10:44AM ; [facility], [facility] No tobacco use 07/21/2020 Last Documented On 4 10:44AM ; [facility], [facility] Not a current smoker 07/21/2020 Last Documented On 4 10:44AM ; [facility], [facility] Not using alcohol 07/21/2020 Last Documented On 4 10:44AM ; [facility], [facility] Not using drugs 07/21/2020 Last Documented On 4 10:44AM ; [facility], [facility] Smoking status : Never smoker 07/21/2020 Last Documented On 4 10:44AM ; [facility], [facility] Procedures and Surgical History Includes: Procedures from this encounter Procedures Code Diagnosis Performing Provider Service Location Service Date INJ TENDON SHEATH/LIGAMENT (RIGHT) Trigger finger, right middle finger Tj Carrasco MD [facility] 11/29/2023 Last Documented On 4 11:19AM ; [facility], [facility] Triamcinolone/Kenalog, 10mg per cc J3301 Trigger finger, right middle finger Tj Carrasco MD [facility] 11/29/2023 Last Documented On 4 11:19AM ; [facility], [facility] use of tobacco assessment performed 1000F Last Documented On 4 10:45AM ; [facility], [facility] referral to physician Last Documented On 4 10:45AM ; [facility], [facility] an X-ray was performed [id number] Last Documented On 4 10:45AM ; [facility], [facility] Surgical History Last Updated History of back surgery 07/21/2020 Last Documented On 4 10:44AM ; [facility], [facility] History of heart surgery 07/21/2020 Last Documented On 4 10:44AM ; [facility], [facility] Medical History Includes: Medical History addressed during this encounter Description Last Updated Recent immunization for flu 08/20/2020 1 Last Documented On 4 10:44AM ; [facility], [facility] Past Surgical History: 07/16 Right CTR @ [facility] ~06/29/2021 Left CTR with transposition @ [facility] 07/12/2021 Last Documented On 4 10:44AM ; [facility], [facility] Past surgical history non-contributory: Foot & hand sx 07/21/2020 Last Documented On 4 10:44AM ; [facility], [facility] Arthritis 07/21/2020 Last Documented On 4 10:44AM ; [facility], [facility] Back surgery 07/21/2020 Last Documented On 4 10:44AM ; [facility], [facility] Heart surgery 07/21/2020 Last Documented On 4 10:44AM ; [facility], [facility] Hypertension 07/21/2020 Last Documented On 4 10:44AM ; [facility], [facility] No recent immunization for pneumococcal pneumonia 07/21/2020 Last Documented On 4 10:44AM ; [facility] Thyroid Disease 07/21/2020 Last Documented On 4 10:44AM ; [facility], [facility] A recent injection 07/21/2020 Last Documented On 4 10:44AM ; [facility], [facility] Arthritic joint problems 07/21/2020 Last Documented On 4 10:44AM ; [facility], [facility] History of diabetes mellitus 07/21/2020 Last Documented On 4 10:44AM ; [facility], [facility] History of heart disease 07/21/2020 Last Documented On 4 10:44AM ; [facility], [facility] Intermittent hypertension 07/21/2020 Last Documented On 4 10:44AM ; [facility] Thyroid disease 07/21/2020 Last Documented On 4 10:44AM ; [facility], [facility] Family History Includes: Family History addressed during this encounter Description Last Updated Family history of cancer 08/25/2021 Last Documented On 4 10:44AM ; [facility], [facility] Diabetes mellitus 08/23/2021 Last Documented On 4 10:44AM ; [facility], [facility] Family history of heart disease 08/23/20 21 Last Documented On 4 10:44AM ; [facility], [facility] Fraternal history of diabetes mellitus 0 07/21/2020 Last Documented On 4 10:44AM ; [facility], [facility] Fraternal history of family history of h eart disease 07/21/2020 Last Documented On 4 10:44AM ; [facility], [facility] Maternal history of family history of ca ncer 07/21/2020 Last Documented On 4 10:44AM ; [facility], [facility] Review of Systems Includes: Review of Systems [...] strength. Tender RLF A1 sylvia with triggering. Mental Status Includes: Mental Status from this encounter Description No anxiety Functional Status Includes: Functional Status from this encounter No Functional Status Recorded Physical Exam Includes: Physical Exam from this encounter Allergies Includes: Active Allergies Substance Type Reaction Onset Date Resolved Date Statu s plavix Allergy 07/16/2012 Active Last Documented On 4 1:27PM ; [facility], [facility] Lipitor Allergy 05/20/2019 Active Last Documented On 4 1:27PM ; [facility], [facility] Darvocet A500 Allergy 07/16/2012 Activ e Last Documented On 4 1:27PM ; [facility] Crestor Allergy 05/20/2019 Active Last Documented On 4 1:27PM ; [facility] Encounters Encounter Provider Location Date Check-In Time Check- Out Time Diagnosis Follow Up Tj Carrasco MD [facility] 4 10:36AM 11:02AM Insurance Includes: Active Insurance Policies Plan Name Member ID Group # Subscriber Relationship Effect ania Dates 1 - [employer] [place] Medicare [id number] Mariana Villaseñor Self Clinical Notes Includes: Clinical Notes from this encounter * Progress note Date Encounter Last Documented by 11/29/2023 Follow Up Last documented on 12/05/2023; 1:24 PM, Tj Carrasco MD; [facility] Active Problems & Conditions - [...] Past Surgical History: 07/16/2019 Right CTR @ [facility] 06/29/2021 Left CTR with transposition @ [facility] - Back surgery - Back surgery Social [...] Care Team - VONDA CEJA MD - CONTRACT OFFICER Notes This dictation was done with voice recognition software and may contain errors and omissions. transcribed by Remy Mccormick
--- OUTSIDE RECORDS SUMMARY | 2024-03-23 11:41 | XMS_ITS | Patient Health Record ---
Author Name Unknown Organization [facility] Address [address] [place] [address] Care Team Providers Care [place] Man Name Role Phone Osmin Luna Primary Care Provider UnavailVance Liu Unavailable [phone] Velma Galicia Unavailable Unavailable YONI CHEUNG, Dr. COX Unavailable [phone] EMMA PATTERSON Unavailable [phone] ALLERGIES Allergen (clinical drug ingredient) Drug/Non Drug Allergy documented on EMR Reaction Allergy Type Onset Date Status Darvocet-N 50 Unknown Drug Allergy Act ania clopidogrel Clopidogrel Unknown Drug Allergy Act ania rosuvastatin Rosuvastatin Unknown Drug Allergy A ctive Sutures Unknown Allergy Active RESULTS Component Value Reference Range Notes Ambjosefa Abbrev RP10 Default (N ot yet reviewed by provider) Interpretation: Performing Lab:[facility] [place], [address] [facility], Phone - [phone], [facility] Notes/Report: Fermin Durbinv RP10 Default A hand-written panel/profile was received from your office. In accordance with the [facility] Ambiguous Test Code Policy dated May 2003, we have completed your order by using the closest currently or formerly recognized AMA panel. We have assigned Renal Panel (10), Test Code #874312 to this request. If this is not the testing you wished to receive on this specimen, please contact the [facility] Client Inquiry/Technical Services Department to clarify the test order. We appreciate your business. Uric Acid, Serum Reviewed date:01/23/2024 11:38:14 AM Interpretation: Performing Lab:[facility] [place], [address] [facility], Phone - [phone], [facility] Notes/Report: Uric Acid 4.1 3.0-7.2 mg/dL Therapeutic ta rget for gout patients: <6.0 Prot+CreatU (Random) Reviewed date:01/23/2024 11:39:50 AM Interpretation: Performing Lab:[facility], Phone - [phone], Director - [facility] Notes/Report: Creatinine, Urine 114.4 Not Estab. mg/dL Protein,Total,Urine 11.0 Not Estab. mg/dL Protein/Creat Ratio 96 0-200 mg/g creat Urinalysis, Complete Reviewed date:01/23/2024 11:40:04 AM Interpretation: Performing Lab:[facility] [place], [address] [place] [address], Phone - [phone], Director - [facility] Notes/Report: Specific [place] 1.018 1.005-1.030 pH 5.5 5.0-7.5 Urine-Color Yellow Yellow Appearance Clear Clear WBC Esterase Trace Negative Protein Negative Negative/Trace Glucose Negative Negative Ketones Negative Negative Occult Blood Negative Negative Bilirubin Negative Negative Urobilinogen,Semi-Qn 0.2 0.2-1.0 mg/dL Nitrite, Urine Negative Negative Microscopic Examination See below: Micr oscopic was indicated and was performed. Microscopic Examination WBC 0-5 0 - 5 /hpf RBC None seen 0 - 2 /hpf Epithelial Cells (non renal) 0-10 0 - 10 /hpf Epithelial Cells (renal) Casts None seen None seen /lpf Cast Type Crystals Crystal Type Mucus Threads Bacteria None seen None seen/Few Yeast Trichomonas Comment Vitamin D Reviewed date:01/23/2024 11:38:27 AM Interpretation: Performing Lab:[facility] [place], [address] [place] [address], Phone - [phone], Director - [facility] Notes/Report: Vitamin D, 25-Hydroxy 29.8 30.0-100.0 ng/mL Vitamin D deficiency has been defined by the [place] of Medicine and an Endocrine Society practice guideline as a level of serum 25-OH vitamin D less than 20 ng/mL (1,2). The Endocrine Society went on to further define vitamin D insufficiency as a level between 21 and 29 ng/mL (2). 1. IOM ([place] of Medicine). 2010. Dietary reference intakes for calcium and D. [place]: The National Academies Press. 2. Carie FLORES, Emile [place], Elisabeth HERNANDEZ, et al. Evaluation, treatment, and prevention of vitamin D deficiency: an Endocrine Society clinical practice guideline. JCEM. 2010; 96(8):1911-30. .Renal Function Panel Reviewed date:01/23/2024 11:38:02 AM Interpretation: Performing Lab:[facility] [place], [address] [facility], Phone - [phone], [facility] Notes/Report: Glucose 79 70-99 mg/dL BUN 13 8-27 mg/dL Creatinine 0.99 0.57-1.00 mg/dL eGFR 64 >59 mL/min/1.73 BUN/Creatinine Ratio 13 12-28 Sodium 144 134-144 mmol/L Potassium 3.8 3.5-5.2 mmol/L Chloride 105 96-106 mmol/L Carbon Dioxide, Total 24 20-29 mmol/L Calcium 9.6 8.7-10.3 mg/dL Phosphorus 4.2 3.0-4.3 mg/dL Albumin 4.5 3.9-4.9 g/dL CBC/Diff Ambiguous Default Reviewed date:01/23/2024 11:38:50 AM Interpretation: Performing Lab:[facility] [place], [address] [facility], Phone - [phone], [facility] Notes/Report: WBC 8.6 3.4-10.8 x10E3/uL RBC 4.46 3.77-5.28 x10E6/uL Hemoglobin 13.2 11.1-15.9 g/dL Hematocrit 40.7 34.0-46.6 % MCV 91 79-97 fL MCH 29.6 26.6-33.0 pg MCHC 32.4 31.5-35.7 g/dL RDW 12.2 11.7-15.4 % Platelets 368 150-450 x10E3/uL Neutrophils 53 Not Estab. % Lymphs 37 Not Estab. % Monocytes 7 Not Estab. % Eos 3 Not Estab. % Basos 0 Not Estab. % Immature Cells Neutrophils (Absolute) 4.5 1.4-7.0 x10E3/uL Lymphs (Absolute) 3.1 0.7-3.1 x10E3/uL Monocytes(Absolute) 0.6 0.1-0.9 x10E3/uL Eos (Absolute) 0.3 0.0-0.4 x10E3/uL Baso (Absolute) 0.0 0.0-0.2 x10E3/uL Immature Granulocytes 0 Not Estab. % Immature Grans (Abs) 0.0 0.0-0.1 x10E3/uL NRBC Hematology Comments: A hand-written panel/profile was received from your office. In accordance with the [facility] Ambig[facility] Test Code Policy dated May 2003, we have assigned CBC with Differential/Platelet, Test Code #943776 to this request. If this is not the testing you wished to receive on this specimen, please contact the [facility] Client Inquiry/ Technical Services Department to clarify the test order. We appreciate your business. REASON FOR REFERRAL No Information MEDICATIONS Medication SIG (Take, Route, Frequency, Duration) Notes Start Date End Date Status Ezetimibe 10 MG 1 tablet Orally Once a day 01/23/2024 Active Aspirin 81 MG 1 tablet Orally Once a day 01/23/2024 Active Gabapentin 400 MG 1 capsule Orally twi ce daily 01/23/2024 Active Glimepiride 4 MG 1 tablet with breakf ast or the first main meal of the day Orally twice a day 01/23/2024 Active Levothyroxine Sodium 75 MCG 1 tablet in the morning on an empty stomach Orally Once a day 01/23/2024 Active Losartan Potassium 100 MG 1 tablet Orall y Once a day 01/23/2024 Active Mounjaro 2.5 MG/0.5ML as directed Subcutaneous hold Not-Taking DULoxetine HCl 60 MG 1 capsule Orally On ce a day 01/23/2024 Active Nitrostat 0.4 MG as directed Sublingual 01/23/2024 Active Lovastatin 40 MG 1 tablet with the evening meal Orally Once a day 01/23/2024 Active Methocarbamol 750 MG 1 tablet Orally eloisa ry 8 hrs 01/23/2024 Active metFORMIN HCl ER 500 MG 1 tablet with ev ening meal Orally three times a day 01/23/2024 Active SOCIAL HISTORY Tobacco Use: Social History Observation Description Date Details (start date - stop date) Never Smoker NA - NA Sex Assigned At : Social History Observation Description Sex Assigned At Unknown Tobacco Use/Smoking Question Answer Notes Status: nonsmoker Alcohol Screen (Audit-C) Question Answer Notes Did you have a drink contain ing alcohol in the past year? Yes How often did you have a dri nk containing alcohol in the past year? Monthly or less (1 point) How many drinks did you have on a typical day when you were drinking in the past year? 1 or 2 drinks (0 point) How often did you have 6 or more drinks on one occasion in the past year? Never (0 point) Points 1 Interpretation Negative PROBLEMS Problem Type ICD Code Onset Dates Problem Status W/U Status Risk SNOMED Code Notes Problem Fibromyalgia (M79.7) Active confirmed Fibromyalgia (239302997) she was advised by her varnisher plasticoater not to take any nonsteroidal anti-inflammato shannon. Problem Hyperlipidemia (E78.5) Active confirmed Hyperlipidemia (23077304) Problem HTN (hypertension) (I10) Active confirmed Hypertension (86674357) blood pressure is well controlled at home. Problem Hypothyroidism (E03.9) Active confirmed Hypothyroidism (21056922) Problem DM2 (diabetes mellitus, type 2) (E11.9) Active confirmed Diabetes mellitus type 2 (disorder) (39208317) management as per endocrinology and primary care. 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 Diabetes is well controlled over the last 10 years. No evidence of end organ damages. I will check an ultrasound of the kidneys to rule out any structural abnormalities. I counseled the patient about lifestyle modifications having good glycemic control, diet and exercise. She was counseled to hold metformin and losartan if she has any diarrhea or nausea/vomiting . She is maintained on Mounjaro and able to lose 10 pounds of weight recently. VITAL SIGNS Heart Rate 96 /min 01/23/2024 Temperature 98.6 degrees Fahrenheit 01/23/2024 Respiratory Rate 16 /min 01/23/2024 Oximetry 92 % 01/23/2024 Blood pressure diastolic 75 mm Hg 01/23/2024 Height 64 in 01/23/2024 Blood pressure systolic 127 mm Hg 01/23/2024 Weight 170.6 lbs 01/23/2024 BMI 29.28 kg/m2 01/23/2024 Encounters Encounter Location Date Provider Diagnosis [facility] [address] [facility] [address] [place] [address] 01/09/2024 EMMA LUISAToo [facility] [address] [facility] [address] [place] [address] 10/09/2023 KENNY VALLEJO CHRONIC KIDNEY DISEASE STAGE 3A N18.31 ; DM2 (diabetes mellitus, type 2) E11.9 ; HTN (hypertension) I10 and Fibromyalgia M79.7 [facility] [address] [facility] [address] [place] [address] 01/23/2024 EMMA LEONARDO DM2 (diabetes mellitus, type 2) E11.9 ; CHRONIC KIDNEY DISEASE STAGE 3A N18.31 ; HTN (hypertension) I10 ; Fibromyalgia M79.7 and Vitamin D deficiency E55.9 ASSESSMENTS Encounter Date Diagnosis Assessment Notes Treatment Notes Treatment Clinical Notes 10/09/2023 DM2 (diabetes mellitus, type 2) (ICD-10 - E11.9) management as per endocrinology and primary care. 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 Diabetes is well controlled over the last 10 years. No evidence of end organ damages. I will check an ultrasound of the kidneys to rule out any structural abnormalities. I counseled the patient about lifestyle modifications having good glycemic control, diet and exercise. She was counseled to hold metformin and losartan if she has any diarrhea or nausea/vomiting. She is maintained on Mounjaro and able to lose 10 pounds of weight recently. 01/23/2024 DM2 (diabetes mellitus, type 2) (ICD-10 - E11.9) management as per endocrinology and primary care. 01/23/2024 HTN (hypertension) (ICD-10 - I10) blood pressure is well controlled at home. 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 Diabetes is well controlled over the last 10 years. No evidence of end organ damages. I will check an ultrasound of the kidneys to rule out any structural abnormalities. I counseled the patient about lifestyle modifications having good glycemic control, diet and exercise. She was counseled to hold metformin and losartan if she has any diarrhea or nausea/vomiting. She is maintained on Mounjaro and able to lose 10 pounds of weight recently. 10/09/2023 HTN (hypertension) (ICD-10 - I10) blood pressure is well controlled at home. 10/09/2023 Fibromyalgia (ICD-10 - M79.7) she was advised by her varnisher plasticoater not to take any nonsteroidal anti-inflammatories. 01/23/2024 Fibromyalgia (ICD-10 - M79.7) she was advised by her varnisher plasticoater not to take any nonsteroidal anti-inflammatories. 01/23/2024 Vitamin D deficiency (ICD-10 - E55.9) 10/09/2023 Other ` PLAN OF TREATMENT Pending Test Test Name Order Date PTH, Intact 01/23/2024 Renal Ultrasound 10/09/2023 Urinalysis 01/23/2024 .Renal Function Panel 01/23/2024 CBC W/AUTO DIFF 01/23/2024 VIT D (25-OH) 01/23/2024 HGB A1C (GLYCOHEMOGLOBIN) 01/23/2024 Amb[facility] Durbinv RP10 Default 01/22/2024 Future Test Test Name Order Date Uric Acid, Serum 01/09/2024 Vitamin D, 25 -hydroxy 01/09/2024 .spot urine for creatinine 01/09/2024 .spot urine for protein 01/09/2024 RENAL FUNCTION PANEL 01/09/2024 URINALYSIS COMPLETE 01/09/2024 CBC W AUTOMATED DIFFERENTIAL 01/09/2024 Next Appt Details Provider Name:EMMA BACA BERNABE PATTERSON, 07/29/2024 11:30:00 AM, [address], [facility] [address], [place], [address], Insurance Providers Payer Name Payer Address Payer Phone Subscriber Number Group Number Insured Name Patient Relationship to Insured Coverage Start Date Coverage End Date [employer] [address] [place] [address] [id number] Mariana Villaseñor Self - patient is the insured MEDICAL (GENERAL) HISTORY Medical History History ICD Code Hyperlipidemia E78.5 Helicobacter positive gastritis K29.70 Hypertension I10 Hypothyroidism E03.9 Diabetes E11.9 Surgical History Surgery Date(Month/Year) back surgery carpal tunnel release 2 c-sections bilateral foot surgery CABG
== END 2024-03-23 23:59 | disposition home or self-care (01) ==
LOC: RAD 11:39
PROVIDERS: PCP Internal Medicine Adolescent Medicine; Visit Provider Internal Medicine Adolescent Medicine
DX: J18.0 Bronchopneumonia, unspecified organism (principal); R05.1 Acute cough
CPT/HCPCS: 71046

== ENCOUNTER 2024-05-07 12:57 | Outpatient (CLI) | payer MEDICARE, SELFPAY ==
--- NOTE | 2024-05-07 13:03 | XR_ITS ---
FINAL REPORT TECHNIQUE: 2 view chest CLINICAL HISTORY: COUGH x 2 1/2 months COMPARISON: None FINDINGS: No acute pulmonary opacities present. There is no evidence of effusion or pneumothorax. There is evidence of prior median sternotomy, presumably from CABG. Otherwise mediastinum is unremarkable. The heart is normal in size. IMPRESSION: Unremarkable chest, status post CABG. Reviewed, Interpreted and Dictated by Sisi Huggins MD Transcribed by Nadeen Albright Authenticated and [facility]
== END 2024-05-07 23:59 | disposition home or self-care (01) ==
LOC: RAD 12:59
PROVIDERS: PCP Internal Medicine Adolescent Medicine; Visit Provider Physician Assistant
DX: R05.3 Chronic cough (principal)
CPT/HCPCS: 71046

== ENCOUNTER 2024-06-02 18:49 | Emergency (ER) | payer MEDICARE, SELFPAY ==
[2024-06-02] VITALS (7 sets, daily range): BP systolic 149–174; BP diastolic 69–82; PULSE 68–85; RESP 12–20; TEMP 36.6–36.9; O2SAT 95–99; BMI 28.3
--- NOTE | 2024-06-02 18:50 | CT_ITS ---
PROCEDURE INFORMATION: Exam: CTA Chest With Contrast Exam date and time: 06/02/2024 7:16 PM Age: 64 years old Clinical indication: Pain; Other: Cp to L shouler and neck TECHNIQUE: Imaging protocol: Computed tomographic angiography of the chest with contrast. Exam focused on the arteries. 3D rendering (Not supervised by radiologist): MIP and/or 3D reconstructed images were created by the technologist. Radiation optimization: All CT scans at this facility use at least one of these dose optimization techniques: automated exposure control; mA and/or kV adjustment per patient size (includes targeted exams where dose is matched to clinical indication); or iterative reconstruction. Contrast material: ISOUVE 370; Contrast volume: 100 ml; Contrast route: INTRAVENOUS (IV); COMPARISON: CR XR CHEST 2V 05/07/2024 1:16 PM FINDINGS: Pulmonary arteries: Normal. No pulmonary emboli. Aorta: Unremarkable. No aortic aneurysm. No aortic dissection. Atherosclerotic calcification of thoracic aorta. Lungs: Unremarkable. No consolidation. No masses. Benign left lower lobar calcified granuloma. Pleural spaces: Unremarkable. No pneumothorax. No pleural effusion. Heart: Unremarkable. No cardiomegaly. No pericardial effusion. Lymph nodes: Unremarkable. No enlarged lymph nodes. Bones/joints: Unremarkable. No acute fracture. Soft tissues: Unremarkable. IMPRESSION: No acute findings.
--- NOTE | 2024-06-02 18:51 | ED_ITS ---
Discharge Plan Disposition Patient Disposition: Home, Self-Care Chief Complaint: Chest Pain Prescriptions Prescriptions: No Action gabapentin 400 mg capsule 400 mg PO TID methocarbamol 750 mg tablet 750 mg PO TID lovastatin 40 mg tablet 40 mg PO QPM nitroglycerin [Nitrostat] 0.4 mg tablet, sublingual 0.4 mg SUBLINGUAL Q5-15M PRN (Reason: Chest Pain) aspirin [Adult Low Dose Aspirin] 81 mg tablet,delayed release (DR/EC) 81 mg PO DAILY levothyroxine 88 mcg tablet 75 mcg PO DAILY duloxetine 60 mg capsule,delayed release(DR/EC) 60 mg PO DAILY ezetimibe 10 mg tablet 10 mg PO DAILY psyllium husk 4.3 gram/6 gram powder 1 tbsp PO DAILY Rx Instructions: mix into at least 8 oz of water or juice before administering losartan 100 mg tablet 100 mg PO DAILY Patient Comments: TAKE 1 TABLET BY MOUTH ONCE DAILY pantoprazole 20 mg tablet,delayed release (DR/EC) 20 mg PO DAILY Mounjaro 2.5 mg/0.5 mL pen injector SQ loratadine 10 mg tablet 10 mg PO DAILY Patient Comments: TAKE 1 TABLET BY MOUTH ONCE DAILY azelastine 137 mcg (0.1 %) aerosol,spray 1 spray intranasal BID Qty: 30 2RF Rx Instructions: administer into each nostril famotidine 20 mg tablet 40 mg PO DAILY Qty: 30 2RF glimepiride 4 mg tablet 4 mg PO DAILY metformin 500 mg tablet 500 mg PO Referrals Follow up/Referrals: Provider,Magdy, [Primary Care Provider] - See instructions Lon Shipman MD [Emergency Provider] - See instructions Alvin Kowalski MD [Staff Physician] - See instructions Activity Restrictions/Add. Instructions Additional Instructions/Restrictions: At this time it was felt you are safe to be discharged home. If new or worsening symptoms please do not hesitate to return the emergency department. Please call and schedule an appointment with your biomedical electronics technician within the next 72 hours, if you are unable to get in very soon please call make an appointment with Dr. Kowalski's office and tell them you are in the emergency room. They will get you in very quickly. Your blood sugar was elevated today however not dangerously high, please have them repeat this at your appointment. Clinical Impressions Clinical Impression: Chest pain, Hyperglycemia Discharge ED Provider: Lon Shipman HPI General Chief Complaint: Chest Pain Stated Complaint: Chest Pain Time Seen by Provider: 06/02/24 18:50 History of Present Illness HPI narrative: Patient is a 64-year-old female with past medical history of coronary artery disease status post three-vessel bypass graft in 2008 who presents emergency department for evaluation of chest pain. Onset was acute, occurring yesterday around lunchtime, substernal radiating through to her left shoulder and neck. No cough reported. She also has a history of [id number] diabetes. No other acute complaints at this time. Related Data Home Medications Medication Instructions Recorded Confirmed aspirin 81 mg tablet,delayed 81 mg PO DAILY Heart disease 09/14/18 05/08/24 release (Adult Low Dose Aspirin) gabapentin 400 mg capsule 400 mg PO TID Pain 09/14/18 05/08/24 lovastatin 40 mg tablet 40 mg PO QPM Cholesterol 09/14/18 05/08/24 methocarbamol 750 mg tablet 750 mg PO TID . 09/14/18 05/08/24 nitroglycerin 0.4 mg sublingual 0.4 mg sublingual Q5-15M PRN Chest 09/14/18 05/16/23 tablet (Nitrostat) Pain duloxetine 60 mg capsule,delayed 60 mg PO DAILY Depression 02/15/22 05/08/24 release ezetimibe 10 mg tablet 10 mg PO DAILY Cholesterol 02/15/22 05/08/24 levothyroxine 88 mcg tablet 75 mcg PO DAILY thyriod 02/15/22 05/08/24 psyllium husk 4.3 gram/6 gram oral 1 tbsp PO DAILY bowels 02/15/22 05/08/24 powder glimepiride 4 mg tablet 4 mg PO DAILY Diabetes 10/04/22 05/08/24 metformin 500 mg tablet 500 mg PO 05/04/23 05/08/24 loratadine 10 mg tablet 10 mg PO DAILY 05/08/24 05/08/24 losartan 100 mg tablet 100 mg PO DAILY 05/08/24 05/08/24 pantoprazole 20 mg tablet,delayed 20 mg PO DAILY 05/08/24 05/08/24 release tirzepatide 2.5 mg/0.5 mL mg SQ 05/08/24 05/08/24 subcutaneous pen injector (Krystal) Previous Rx's Medication Instructions Recorded azelastine 137 mcg (0.1 %) nasal 1 spray intranasal BID #30 mL 05/08/24 spray famotidine 20 mg tablet 40 mg (2 x 20 mg) PO DAILY GERD 05/08/24 #30 tabs Allergies Allergy/AdvReac Type Severity Reaction Status Date / Time atorvastatin [From Lipitor] Allergy Myalgia Verified 05/08/24 16:46 (muscle pain) clopidogrel [From Plavix] Allergy Hives Verified 05/08/24 16:46 propoxyphene Allergy Hives Verified 05/08/24 16:46 [From Darvocet-N] rosuvastatin [From Crestor] Allergy Myalgia Verified 05/08/24 16:46 (muscle pain) [facility] Disclaimer: The information contained in this section may have been updated after the patient was seen, as this information can be updated by other users. Medical History (Updated 06/02/24 @ 22:07 by Lon Shipman MD) GERD (gastroesophageal reflux disease) Hoarseness Otalgia, bilateral Mouth pain Diabetes Hypothyroid HLD (hyperlipidemia) HTN (hypertension) Surgical History History of laparoscopic cholecystectomy History of carpal tunnel release History of foot surgery History of back surgery History of section History of open heart surgery History of colonoscopy Family History Other Family history of cancer Family history of heart disease Social History Smoking Status: Never smoker alcohol intake: never substance use type: denies use current occupational status: disabled Travel in the last 8 weeks: None household members: spouse housing: house current occupational exposures/hazards: No caffeine: Yes ROS Obtained: Yes Systems reviewed as appropriate & no additional complaints except as documented Physical Exam General General appearance: alert and in no apparent distress Head Head exam: atraumatic and normocephalic Eye Eye exam: Present PERRL ENT ENT exam: Present mucous membranes moist Neck Neck exam: Present normal inspection Chest Chest inspection: Present normal inspection and symmetric chest wall rise Respiratory Respiratory exam: Present normal lung sounds bilaterally; Absent respiratory distress Cardiovascular Cardiovascular exam: Present regular rate and normal rhythm Abdominal Exam Abdominal exam: Present soft; Absent tenderness Extremities Exam Extremities exam: Present normal inspection Neurological Exam Neurological exam: Present alert Psychiatric Psychiatric exam: Present normal affect Skin Skin exam: Present warm and dry HEART Score HEART Score HEART Score assessment performed?: Yes History (anamnesis): Highly suspicious ECG: Non-specific disturbance Age: 45-65 years Risk factors: Atherosclerosis history Troponin: </= normal limit HEART Score: 6 Critical Care Critical Care Time Critical Care Time: No Medical Decision Making Zach Inquiry Pt receiving controlled substance: No Vital Signs Vital Signs: 06/02/24 18:49 06/02/24 19:01 06/02/24 19:30 Temperature 98.4 F Temperature Source Oral Pulse Rate 78 82 Pulse Rate [Right Radial] 85 Respiratory Rate 20 15 19 Blood Pressure 167/77 H 174/82 H Blood Pressure [Right Arm] 174/82 H Blood Pressure Mean [Right Arm] 112 02 Sat by Pulse Oximetry 96 98 99 Oxygen Delivery Method Room Air 06/02/24 20:00 06/02/24 20:30 Temperature Temperature Source Pulse Rate 79 79 Pulse Rate [Right Radial] Respiratory Rate 20 15 Blood Pressure 161/69 H 166/72 H Blood Pressure [Right Arm] Blood Pressure Mean [Right Arm] 02 Sat by Pulse Oximetry 99 95 Oxygen Delivery Method Lab Data Labs: Lab Results 06/02/24 17:51: WBC 11.0 H, RBC 4.03 L, Hgb 12.1 L, Hct 37.5, MCV 93.2, MCH 29.9, MCHC 32.1, RDW 14.0, Plt Count 331, MPV 7.2 L, Neut % (Auto) 77.6, Lymph % (Auto) 16.8, Luce % (Auto) 3.6, Eos % (Auto) 1.6, Baso % (Auto) 0.5, Neut # (Auto) 8.5 H, Lymph # (Auto) 1.8, Luce # (Auto) 0.4, Eos # (Auto) 0.2, Baso # (Auto) 0.1, Sodium 138, Potassium 4.0, Chloride 106, Carbon Dioxide 26, Anion Gap 10.0, BUN 13, Creatinine 1.10 H, Estimated GFR 50 L, Est GFR ( Amer) 60, Glucose 264 H, Calcium 9.0, Total Bilirubin 0.2, AST 22, ALT 18, Alkaline Phosphatase 72, Troponin I < 0.01, Total Protein 6.7, Albumin 4.0, Globulin 2.7, Albumin/Globulin Ratio 1.5 06/02/24 21:25: Troponin I < 0.01 06/02/24 17:51 06/02/24 17:51 Response Orders (Tests/Meds): ED MEDICATIONS Generic Name Dose Route Start Last Admin Trade Name Freq PRN Reason Stop Dose Admin Sodium Chloride 10 ml 06/02/24 19:23 06/02/24 19:25 Sodium Chloride 0.9% 10ml Syr (Rad Only) IV 07/02/24 19:22 10 ml NEEDED PRN Administration Maintain IV Site Discontinued Medications Generic Name Dose Route Start Last Admin Trade Name Freq PRN Reason Stop Dose Admin Acetaminophen 1,000 mg 06/02/24 19:49 06/02/24 20:09 Acetaminophen 1,000mg/100ml Vial IV 06/02/24 19:50 1,000 mg ONCE ONE Administration Aspirin 324 mg 06/02/24 18:50 06/02/24 19:56 Aspirin 81mg Chewable Tablet PO 06/02/24 18:51 324 mg ONCE ONE Administration Iopamidol 100 ml 06/02/24 19:23 06/02/24 19:24 Iopamidol-370 (76%);100ml Bottle IV 06/02/24 19:24 100 ml ONCE ONE Administration Morphine Sulfate 4 mg 06/02/24 18:50 06/02/24 19:55 Morphine 4mg/Ml Syringe IV 06/02/24 18:51 Not Given ONCE ONE Sodium Chloride 50 ml 06/02/24 19:23 06/02/24 19:24 0.9 % Sodium Chloride 50 Ml Vial IV 06/02/24 19:24 50 ml ONCE ONE Administration ORDERS Category Date Time Status CT angio chest - dissection Stat Cat Scan 06/02/24 18:50 Completed CBC w/Auto Diff [Complete Blood Count Auto Diff] Stat Lab 06/02/24 17:51 Completed CMP [Comprehensive Metabolic Panel] Stat Lab 06/02/24 17:51 Completed Trop I [Troponin I] Stat Lab 06/02/24 17:51 Completed Troponin I Q3H Lab 06/02/24 21:25 Completed Troponin I Q3H Lab 06/03/24 01:00 Ordered ECG Data Tracing #1: ECG Narrative: Independently interpreted by me rate is 88, rhythm is regular, axis is borderline leftward deviated, no ST elevation in anatomical contiguous leads, QTc 391. MDM Narrative Medical Decision Narrative: In summary patient is a 64-year-old female with past medical history described above who presents emergency department for evaluation of chest pain in the setting of previous CABG. Patient is hemodynamically stable nontoxic-appearing upon arrival, afebrile. Differential diagnosis includes dissection, pulmonary embolism, ACS, noncardiac chest pain, among others. Workup will be conducted with hematologic labs, CTA chest. Initial inventions include aspirin, morphine. Initial workup reviewed by me, hematologic labs are nonactionable, glucose is 264 without elevated anion gap to suggest DKA, initial troponin undetectably low. CTA chest shows no acute findings. Second troponin undetectably low. Given this with duration of symptoms patient is appropriate for outpatient management at this time as I would suspect troponin to be elevated in the setting of NSTEMI and patient is not having a STEMI on EKG. All emergent causes are ruled out at this point patient was given multiple return precautions and verbalized understanding. She will follow-up with her already established biomedical electronics technician this week.
--- OUTSIDE RECORDS SUMMARY | 2024-06-02 18:58 | XMS_ITS ---
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 Name Role Phone MARCIAL CHEUNG VONDA Unavailable [phone] Danilo CHEUNG, Tj Early Unavailable [phone] Reason for Referral Date Encounter Description Provider [...] Active Last Documented On 3 1:51PM ; [facility] Neck Pain 07/07/2021 Neo Sandhu MD Active Last Documented On 1 8:43AM ; [facility] Lower Back Pain 07/07/2021 Neo Sandhu MD A ctive Last Documented On 1 8:43AM ; [facility] Joint Pain, Localized in Both Shoulders 07/21/2020 Haider Madera MD Active Last Documented On 0 3:28PM ; [facility] Joint Pain Fingers of Both Hands 05/20/2019 Isaac Carrasco MD Active Last Documented On 9 8:23AM ; [facility] Plan of Treatment Pending Tests Order Diagnosis Results Due Ordering P rovider Radiology - MRI MRI Shoulder 10/11/21 Haider Madera MD Last Documented On 1 2:06PM ; [facility] Instructions to patient Lose weight Last Documented On 4 10:08AM ; [facility] Lose weight Last Documented On 4 8:50AM ; [facility] Lose weight Last Documented On 4 1:16PM ; [facility] Lose weight Last Documented On 4 1:27PM ; [facility] Lose weight Last Documented On [...] all patient encounters Findings Encounter Date Overweight Post Op with Tj Greenfield 05/08/2024 Last Documented On 4 9:27PM ; [facility] Overweight Post Op with Tj Greenfield 04/24/2024 Last Documented On 4 3:29PM ; [facility] Overweight Post Op with Tj Greenfield 04/17/2024 Last Documented On 4 9:54PM ; [facility] Overweight NEW PROBLEM/EST PT with Tj Carrasco MD 07/19/2023 Last Documented On 4 3:26PM ; [facility] Instructions Includes: Instructions for all patient encounters Instructions to patient Lose weight Last Documented On 4 10:08AM ; [facility] Lose weight Last Documented On 4 8:50AM ; [facility] Lose weight Last Documented On 4 1:16PM ; [facility] Lose weight Last Documented On 4 1:27PM [...] bp Last Documented On 9 8:46AM ; [facility] Medical Equipment - Implanted Devices Includes: Current and historical Devices No Medical Equipment Recorded Medications Includes: Current and historical Medications Current Medications (continue as prescribed) Pantoprazole Sodium 40 MG Oral Tablet Delayed Release 05/03/2024 Provider: Diagnosis: Last Documented On 4 10:07AM By Miguel Chiu ; [facility] Omeprazole 40 MG Oral Capsule Delayed Release 04/23/20 Provider: Diagnosis: Last Documented On 4 10:07AM By Miguel Chiu ; [facility] Losartan Potassium 100 MG Or al Tablet 04/18/2024 Provider: Therese falcon APRN Diagnosis: Last Documented On 4 8:50AM By Miguel Chiu ; [facility] Glimepiride 4 MG Oral Tablet 04/18/2024 Provider: Diagnosis: Last Documented On 4 8:50AM By Miguel Chiu ; [facility] Neurontin 300 MG Oral Capsule 04/17/2024 Provider: Tj Carrasco MD Diagnosis: 1 every bedtime Last Documented On 4 2:04PM By Dr. Carrasco ; [facility] HYDROcodone-Acetaminophen 7. 5-325 MG Oral Tablet 04/09/2024 Provider: Tj Carrasco MD Diagnosis: 1 q 6 hours prn pain Last Documented On 4 9:24AM By Dr. Carrasco ; [facility] Promethazine-DM 6.25-15 MG/5 ML Oral Syrup 04/02/2024 Provider: Therese falcon APRN Diagnosis: Last Documented On 4 8:50AM By Miguel Chiu ; [facility] Mounjaro 2.5 MG/0.5ML Subcutaneous Solution Pen-inject or 03/31/2024 Provider: Diagnosis: Last Documented On 4 8:50AM By Miguel Chiu ; [facility] Doxycycline Hyclate 100 MG Oral Capsule 03/23/2024 Mazin rivera: VONDA CEJA MD Diagnosis: Last Documented On 4 8:50AM By Miguel Chiu ; [facility] Benzonatate 200 MG Oral Capsule 03/23/2024 Provider: VONDA CEJA MD Diagnosis: Last Documented On 4 8:50AM By Miguel Chiu ; [facility] Promethazine-DM 6.25-15 MG/5 ML Oral Syrup 03/19/2024 Provider: Therese falcon VOCATIONAL AIDE Diagnosis: Last Documented On 4 8:50AM By Miguel Chiu ; [facility] Fluconazole 150 MG Oral Tablet 03/16/2024 Provider: Diagnosis: Last Documented On 4 8:50AM By Miguel Chiu ; [facility] Cefdinir 300 MG Oral Capsule 03/15/2024 Provider: Therese Gomes APRN Diagnosis: Last Documented On 4 8:50AM By Miguel Chiu ; [facility] Lovastatin 40 MG Oral Tablet 03/04/2024 Provider: VONDA CEJA MD Diagnosis: Last Documented On 4 8:50AM By Miguel Chiu ; [facility] Acyclovir 5% External Ointment 01/23/2024 Provider: Therese Gomes APRN Diagnosis: Last Documented On 4 8:50AM By Miguel Chiu ; [facility] Mupirocin 2% External Ointment 01/23/2024 Provider: Therese Gomes APRN Diagnosis: Last Documented On 4 8:50AM By Miguel Chiu ; [facility] Amoxicillin-Pot Clavulanate 875-125 MG Oral Tablet 01/23/2024 Provider: Therese falcon APRN Diagnosis: Last Documented On 4 8:50AM By Miguel Chiu ; [facility] Ozempic (0.25 or 0.5 MG/DOSE ) 2 MG/1.5ML Subcutaneous Solution Pen-injector 11/29/2023 Provider: Diagnosis: Last Documented On 4 10:45AM By Natasha Figueredo ; [facility] Alpha Lipoic Acid 200 MG Oral Capsule 07/13/2023 Pro vider: KATHRYN MARISCAL MD Diagnosis: Last Documented On 3 10:03AM By Garth Cramer ; [facility] Rheumate Oral Capsule 07/13/2023 Provider: KATHRYN ARMENTA MD Diagnosis: Last Documented On 3 10:03AM By Garth Cramer ; [facility] metFORMIN HCl ER 500 MG Oral Tablet Extended Rel ease 24 Hour 07/11/2023 Provider: Diagnosis: Last Documented On 3 10:03AM By Garth Cramer ; [facility] DULoxetine HCl 60 MG Oral Ca psule Delayed Release Particles 07/03/2023 Provider: VELMA GALICIA MD Diagnosis: Last Documented On 3 10:03AM By Garth Cramer ; [facility] Gabapentin 400 MG Oral Capsule 07/03/2023 Provider: VELMA GALICIA MD Diagnosis: Last Documented On 3 10:03AM By Garth Cramer ; [facility] Past Medications on file Ativan 1 MG Oral Tablet 07/18/2023 - 07/19/2023 Provid er: Art Vizcarra MD Diagnosis: take as directed; Take 1 tab let 1 hour before MRI; May take an additional tablet if needed. Last Documented On 3 3:09PM By Dr. Vizcarra ; [facility] Levothyroxine Sodium 75 MCG Oral Tablet 10/18/2021 - 0 07/19/2023 Provider: Diagnosis: Last Documented On 3 10:03AM By Garth Cramer ; [facility] Losartan Potassium 50 MG Oral Tablet 10/18/2021 - 07/19/2023 Provider: Therese peng APRN Diagnosis: Last Documented On 3 10:03AM By Garth Cramer ; [facility] Synthroid 75 MCG Oral Tablet 10/18/2021 - 07/19/2023 Mazin rivera: IONA GALEANO MD Diagnosis: Last Documented On 3 10:03AM By Garth Cramer ; [facility] Losartan Potassium 50 MG Oral Tablet 09/27/2021 - 06/22 Provider: Diagnosis: Last Documented On 3 10:04AM By Garth Cramer ; [facility] HYDROcodone-Acetaminophen 7. 5-325 MG Oral Tablet 06/24/2021 - 10/18/2021 Provider: Tj Carrasco MD Diagnosis: 1 q 6 hours prn pain Last Documented On 1 11:04AM By Therese Swan ; [facility] DULoxetine HCl 30 MG Oral Capsule Delayed Release Particles 11/26/2020 - 07/19/2023 Provider: DAVIS VAN ON WHEEL TRUER Diagnosis: Last Documented On 3 10:04AM By Garth Cramer ; [facility] Nitrostat 0.4 MG Sublingual Tablet Sublingual 07/21/20 20 - 07/19/2023 Provider: Diagnosis: Last Documented On 3 10:04AM By Garth Cramer ; [facility] Lovastatin 40 MG Oral Tablet 07/21/2020 - 10/18/2021 Mazin rivera: VONDA CEJA MD Diagnosis: Last Documented On 1 11:19AM By Carmen Fleming ; [facility] CVS D3 10 MCG (400 UNIT) Oral Capsule 07/21/2020 - Provider: Diagnosis: Last Documented On 3 10:04AM By Garth Cramer ; [facility] Levothyroxine Sodium 88 MCG Oral Tablet 07/21/2020 - 1 12/18/2020 Provider: Diagnosis: Last Documented On 1 11:19AM By Carmen Fleming ; [facility] Euthyrox 88 MCG Oral Tablet 07/15/2020 - 07/19/2023 Pr ovider: Alec Villa Diagnosis: Last Documented On 3 10:04AM By Garth Cramer ; [facility] Gabapentin 400 MG Oral Capsule 07/08/2020 - 07/19/2023 Provider: VELMA GALICIA MD Diagnosis: Last Documented On 3 10:04AM By Garth Cramer ; [facility] Lovastatin 40 MG Oral Tablet 07/07/2020 - 07/19/2023 P nicole: Alec Villa Diagnosis: Last Documented On 3 10:04AM By Garth Cramer ; [facility] Methocarbamol 750 MG Oral Tablet 07/06/2020 - 07/19/20 23 Provider: VELMA GALICIA MD Diagnosis: Last Documented On 3 10:04AM By Garth Craemr ; [facility] Ezetimibe 10 MG Oral Tablet 06/08/2020 - 07/19/2023 Pr ovider: SIMRAN DEL CASTILLO MD Diagnosis: Last Documented On 3 10:04AM By Garth Cramer ; [facility] Lisinopril 10 MG Oral Tablet 05/22/2020 - 10/18/2021 Mazin rivera: IONA GALEANO MD Diagnosis: Last Documented On 1 11:20AM By Carmen Fleming ; [facility] metFORMIN HCl 500 MG Oral Tablet 05/08/2020 - 07/19/20 23 Provider: IONA GALEANO MD Diagnosis: Last Documented On 3 10:03AM By Garth Cramer ; [facility] Ibuprofen 400 MG OR TABS 07/13/2019 - 10/18/2021 Provi arabella: Tj Carrasco MD Diagnosis: for post op pain Last Documented On 1 11:04AM By Therese Swan ; [facility] Diclofenac Sodium 1% Transdermal Gel 04/25/2019 - 07/21/2020 Provider: Endy Soni DPM Diagnosis: Last Documented On 0 3:26PM By Sophiamiranda Hummel-Jasper ; [facility] Nitroglycerin 0.4MG Sublingu al Tablet Sublingual 03/28/2019 - 05/20/2019 Provider: SIMRAN Greenfield Diagnosis: Last Documented On 9 8:39AM By Sophiamiranda Hummel-Jasper ; [facility] Methocarbamol 750MG Oral Tablet 03/25/2019 - 0 Provider: VELMA GALICIA MD Diagnosis: Last Documented On 0 3:27PM By Sophia Hummel-Jasper ; [facility] Gabapentin 400MG Oral Capsule 03/21/2019 - 07/21/2020 Provider: VELMA GALICIA MD Diagnosis: Last Documented On 0 3:26PM By Sophiamiranda Hummel-Jasper ; [facility] Lovastatin 40MG Oral Tablet 03/18/2019 - 07/21/2020 Pr ovider: VONDA CEJA MD Diagnosis: Last Documented On 0 3:27PM By Sophiamiranda Hummel-Jasper ; [facility] Lisinopril 10MG Oral Tablet 03/18/2019 - 07/21/2020 Pr ovider: IONA GALEANO MD Diagnosis: Last Documented On 0 3:26PM By Sophiamiranda Hummel-Jasper ; [facility] Levothyroxine Sodium 88MCG Oral Tablet 03/05/2019 - Provider: Diagnosis: Last Documented On 0 3:27PM By Sophia Dennison ; [facility] Lansoprazole 30MG Oral Capsule Delayed Release 0 02/24/2019 - 07/21/2020 Provider: Diagnosis: Last Documented On 0 3:26PM By Sophia Dennison ; [facility] metFORMIN HCl 500MG Oral Tablet 02/24/2019 - 0 Provider: IONA GALEANO MD Diagnosis: Last Documented On 0 3:27PM By Sophia Dennison ; [facility] Atenolol 25MG Oral Tablet 02/24/2019 - 07/21/2020 Prov ider: SIMRAN DEL CASTILLO MD Diagnosis: Last Documented On 0 3:26PM By Sophia Dennison ; [facility] Jardiance 25MG Oral Tablet 12/24/2018 - 05/20/2019 Pro vider: IONA GALEANO MD Diagnosis: Last Documented On 9 8:40AM By Sophia Dennison ; [facility] Esau Aspirin 325 MG OR TABS 08/27/2012 - 05/20/2019 Mazin rivera: Diagnosis: Last Documented On 9 8:25AM By Sophia Dennison ; [facility] GNP Vitamin E 200 UNIT OR CAPS 08/27/2012 - 05/20/2019 Provider: Diagnosis: Last Documented On 9 8:25AM By Sophia Dennison ; [facility] Pravastatin Sodium 40 MG OR TABS 08/27/2012 - 05/20/20 19 Provider: Diagnosis: Last Documented On 9 8:25AM By Sophia Dennison ; [facility] Zetia 10 MG OR TABS 08/27/2012 - 05/20/2019 Provider: Diagnosis: Last Documented On 9 8:25AM By Sophia Dennison ; [facility] CVS Flaxseed Oil 1000 MG OR CAPS 08/27/2012 - 05/20/20 19 Provider: Diagnosis: Last Documented On 9 8:25AM By Sophia Dennison ; [facility] CVS Vitamin C 500 MG OR TABS 08/27/2012 - 05/20/2019 Mazin rivera: Diagnosis: Last Documented On 9 8:25AM By Sophia Dennison ; [facility] glyBURIDE 5 MG OR TABS 08/27/2012 - 05/20/2019 Provide r: Diagnosis: Last Documented On 9 8:25AM By Sophia Dennison ; [facility] Levothyroxine Sodium 50 MCG OR TABS 08/27/2012 - 05/20 Provider: Diagnosis: Last Documented On 9 8:25AM By Sophia Dennison ; [facility] Fish Oil 1200 MG OR CAPS 08/27/2012 - 05/20/2019 Provi arabella: Diagnosis: Last Documented On 9 8:25AM By Sophia Dennison ; [facility] Lisinopril 20 MG OR TABS 08/27/2012 - 05/20/2019 Provi arabella: Diagnosis: Last Documented On 9 8:25AM By Sophia Dennison ; [facility] Medications Administered Includes: Administered Medications in patient's chart No Administered Medications Recorded Vital Signs Includes: Vital Signs from 06/02/2023 through 06/02/2024 Vital Name 05/08/2024 10:08A 04/24/2024 08:50A 04/17/2024 01:16P 01/31/2024 01:28P 11/29/2023 10:45A Height (in) 64 64 64 64 64 Weight (lb) 165 165 165 165 165 Body Mass Index 28.3 28.3 28.3 28.3 28.3 Body Surface Area 1.8 1.8 1.8 1.8 1.8 Note: gallo [facility] Last Documented: On 05/08/2024 10:08AM ; [facility] On 04/24/2024 8:51AM ; [facility] On 04/17/2024 1:16PM ; [facility] On 01/31/2024 1:28PM ; [facility] On 11/29/2023 10:45AM ; [facility] Vital Name 07/25/2023 10:49A 07/19/2023 10:15A 07/10 01:51P Height (in) 64 64 64 Weight (lb) 185 183 185 Body Mass Index 31.8 31.4 31.8 Body Surface Area 1.9 1.9 1.9 Note: mg dp Last Documented: On 07/25/2023 10:49A M ; [facility] On 07/19/2023 10:15AM ; [facility] On 07/10/2023 2:02PM ; [facility] Results Includes: Results from 06/02/2023 through 06/02/2024 No Results Recorded For Specified Dates History [...] On 4 3:26PM ; [facility] Non-smoker 11/17/2021 Last Documented On 1 2:02PM ; [facility] Exercising regularly 2-3 times a week Last Documented On 1 10:47AM ; [facility] No caffeine use 08/23/2021 Last Documented On 1 10:47AM ; [facility] No recent change in diet 08/23/2021 Last Documented On 1 10:47AM ; [facility] Not a current smoker. 07/21/2020 Last Documented On 0 4:01PM ; [facility] No tobacco use 07/21/2020 Last Documented On 0 4:01PM ; [facility] Not a current smoker 07/21/2020 Last Documented On 0 4:01PM ; [facility] Not using alcohol 07/21/2020 Last Documented On 0 4:01PM ; [facility] Not using drugs 07/21/2020 Last Documented On 0 4:01PM ; [facility] Smoking status : Never smoker 07/21/2020 Last Documented On 0 4:01PM ; [facility] Procedures and Surgical History Includes: Procedures from 06/02/2023 through 06/02/2024 Procedures Code Diagnosis Performing Provider Service Location Service Date THERAPEUTIC ACTIVITIES (Occupational therapy) 95751 Trigger finger, left middle finger Velma Green OT [facility] 05/27/2024 Last Documented On 4 12:39PM ; [facility] MANUAL THERAPY (Occupational therapy) 95487 Trigger finger, left middle finger Velma Green OT [facility] 05/27/2024 Last Documented On 4 12:39PM ; [facility] NEUROMUSCULAR REEDUCATION (Occupational therapy) 66372 Trigger finger, left middle finger Velma Green OT [facility] 05/27/2024 Last Documented On 4 12:39PM ; [facility] THERAPEUTIC EXERCISES (Occupational therapy) 96301 Trigger finger, left middle finger Velma Green OT [facility] 05/27/2024 Last Documented On 4 12:39PM ; [facility] THERAPEUTIC ACTIVITIES (Occupational therapy) 51328 Trigger finger, left middle finger Velma Green OT [facility] 05/22/2024 Last Documented On 4 11:47AM ; [facility] MANUAL THERAPY (Occupational therapy) 74482 Trigger finger, left middle finger Velma Green OT [facility] 05/22/2024 Last Documented On 4 11:47AM ; [facility] NEUROMUSCULAR REEDUCATION (Occupational therapy) 76041 Trigger finger, left middle finger Velma Green OT [facility] 05/22/2024 Last Documented On 4 11:47AM ; [facility] THERAPEUTIC EXERCISES (Occupational therapy) 74028 Trigger finger, left middle finger Velma Green OT [facility] 05/22/2024 Last Documented On 4 11:47AM ; [facility] THERAPEUTIC ACTIVITIES (Occupational therapy) 13379 Trigger finger, left middle finger Velma Green OT [facility] 05/13/2024 Last Documented On 4 11:53AM ; [facility] NEUROMUSCULAR REEDUCATION (Occupational therapy) 46081 Trigger finger, left middle finger Velma Green OT [facility] 05/13/2024 Last Documented On 4 11:53AM ; [facility] THERAPEUTIC EXERCISES (Occupational therapy) 73552 Trigger finger, left middle finger Velma Green OT [facility] 05/13/2024 Last Documented On 4 11:53AM ; [facility] THER INJECTION, CARP TUNNEL (Unrelated Procedure, RIGHT) Carpal tunnel syndrome, right upper limb Tj Carrasco MD [facility] 05/08/2024 Last Documented On 4 10:59AM ; [facility] NEUROMUSCULAR REEDUCATION (Occupational therapy) 50435 Trigger finger, right middle finger, Lesion of ulnar nerve, right upper limb Mack Angle OT [facility] 05/08/2024 Last Documented On 4 8:11AM ; [facility] Triamcinolone/Kenalog, 10mg per cc [id number] Trigger finger, left middle finger Tj Carrasco MD [facility] 05/08/2024 Last Documented On 4 10:59AM ; [facility] INJ TENDON SHEATH/LIGAMENT (Distinct procedure, LEFT) 44615 Trigger finger, left middle finger Tj Carrasco MD [facility] 05/08/2024 Last Documented On 4 10:59AM ; [facility] MANUAL THERAPY (Occupational therapy) 53488 Trigger finger, right middle finger, Lesion of ulnar nerve, right upper limb Mack Angle OT [facility] 05/08/2024 Last Documented On 4 8:11AM ; [facility] OT Eval - Mod Complexity (Occupational therapy) 12256 Trigger finger, right middle finger, Lesion of ulnar nerve, right upper limb Arlet Strauss OT [facility] 04/24/2024 Last Documented On 4 2:33PM ; [facility] SELF CARE MNGMENT TRAINING (Occupational therapy) 07590 Trigger finger, right middle finger, Lesion of ulnar nerve, right upper limb Arlet Strauss OT [facility] 04/24/2024 Last Documented On 4 2:33PM ; [facility] NEUROMUSCULAR REEDUCATION (Occupational therapy) 61195 Trigger finger, right middle finger, Lesion of ulnar nerve, right upper limb Arlet Strauss OT [facility] 04/24/2024 Last Documented On 4 2:33PM ; [facility] APPLY LONG ARM SPLINT (Related Proc Same Dr, RIGHT) 55886 Trigger finger, right middle finger Tj Carrasco MD [facility] 04/17/2024 Last Documented On 4 9:14AM ; [facility] Neuroplasty/Transposition ul getachew nerve at elbow (RIGHT) 67174 Lesion of ulnar nerve, right upper limb Tj Carrasco MD [facility] Surgical Division 04/11/2024 Last Documented On 4 6:15AM ; [facility] INCISE FINGER TENDON SHEATH (RIGHT HAND, THIRD DIGIT) 94419 Trigger finger, right middle finger Tj Carrasco MD [facility] Surgical Division 04/11/2024 Last Documented On 4 6:15AM ; [facility] Triamcinolone/Kenalog, 10mg per cc [id number] Trigger finger, right middle finger Tj Carrasco MD [facility] 11/29/2023 Last Documented On 4 11:19AM ; [facility] INJ TENDON SHEATH/LIGAMENT (RIGHT) 35356 Trigger finger, right middle finger Tj Carrasco MD [facility] 11/29/2023 Last Documented On 4 11:19AM ; [facility] INJ TENDON SHEATH/LIGAMENT (Distinct procedure, RIGHT HAND, THIRD DIGIT) 80511 Pain in right finger(s) Tj Carrasco MD [facility] 07/19/2023 Last Documented On 3 11:37AM ; [facility] CMC Comfort Cool Splint [id number] Unil primary osteoarth of first carpometacarp joint, l hand Tj Carrasco MD [facility] 07/19/2023 Last Documented On 3 2:39PM ; [facility] Triamcinolone/Kenalog, 10mg per cc [id number] Pain in right finger(s) Tj Carrasco MD [facility] 07/19/2023 Last Documented On 3 8:36AM ; [facility] X-RAY EXAM OF FINGER(S) 2-3 VIEWS (LEFT) [id number] Unil primary osteoarth of first carpometacarp joint, l hand Tj Carrasco MD [facility] 07/19/2023 Last Documented On 3 8:36AM ; [facility] X-RAY EXAM OF FINGER(S) 2-3 VIEWS (RIGHT) [id number] Unil primary osteoarth of first carpometacarp joint, r hand Tj Carrasco MD [facility] 07/19/2023 Last Documented On 3 8:36AM ; [facility] DRAIN/INJECT, JOINT/BURSA (Bilateral Procedure) 20988 Bilateral primary osteoarth of first carpometacarp joints Tj Carrasco MD [facility] 07/19/2023 Last Documented On 3 8:36AM ; [facility] MRI JNT OF LWR EXTRE W/O DYE (RIGHT) [id number] Pain in right knee Art Vizcarra MD [facility] 07/19/2023 Last Documented On 3 7:55AM ; [facility] X-RAY EXAM KNEE 4 OR MORE (RIGHT) [id number] Pain in right knee Art Vizcarra MD [facility] 07/10/2023 Last Documented On 3 1:21PM ; [facility] Surgical History Last Updated History of back surgery 07/21/2020 Last Documented On 0 4:01PM ; [facility] History of heart surgery 07/21/2020 Last Documented On 0 4:01PM ; [facility] Medical History Includes: Medical History in patient's chart Description Last Updated Recent immunization for flu 08/20/2020 1 Last Documented On 1 10:47AM ; [facility] Past Surgical History: 07[place] [facility] [place] with [place] [facility]2021 Last Documented On 1 4:27PM ; [facility] Past surgical history non-contributory: Foot & hand sx 07/21/2020 Last Documented On 0 4:01PM ; [facility] Arthritis 07/21/2020 Last Documented On 0 4:01PM ; [facility] Back surgery 07/21/2020 Last Documented On 0 4:01PM ; [facility] Heart surgery 07/21/2020 Last Documented On 0 4:01PM ; [facility] Hypertension 07/21/2020 Last Documented On 0 4:01PM ; [facility] No recent immunization for pneumococcal pneumonia 07/21/2020 Last Documented On 0 4:01PM ; [facility] Thyroid Disease 07/21/2020 Last Documented On 0 4:01PM ; [facility] A recent injection 07/21/2020 Last Documented On 0 4:01PM ; [facility] Arthritic joint problems 07/21/2020 Last Documented On 0 4:01PM ; [facility] History of diabetes mellitus 07/21/2020 Last Documented On 0 4:01PM ; [facility] History of heart disease 07/21/2020 Last Documented On 0 4:01PM ; [facility] Intermittent hypertension 07/21/2020 Last Documented On 0 4:01PM ; [facility] Thyroid disease 07/21/2020 Last Documented On 0 4:01PM ; [facility] Family History Includes: Family History in patient's chart Description Last Updated Family history of cancer 08/25/2021 Last Documented On 1 10:47AM ; [facility] Diabetes mellitus 08/23/2021 Last Documented On 1 10:47AM ; [facility] Family history of heart disease 08/23/20 21 Last Documented On 1 10:47AM ; [facility] Fraternal history of diabetes mellitus 0 07/21/2020 Last Documented On 0 4:01PM ; [facility] Fraternal history of family history of h eart disease 07/21/2020 Last Documented On 0 4:01PM ; [facility] Maternal history of family history of ca ncer 07/21/2020 Last Documented On 0 4:01PM ; [facility] Review of Systems Review of Systems [...] Patient Last Documented On 0 9:03AM ; [facility] Influenza 2 08/20/2021 Complete (Reported) Patient Last Documented On 1 11:19AM ; [facility] PCV (Pneumovax 23) 1 04/07/2021 Complete (Refused - Patient objection) [facility] Last Documented On 1 11:22AM ; [facility] Td 1 04/07/2021 Complete (Refused - Patient objection) [facility] Last Documented On 1 11:22AM ; [facility] Allergies Includes: Active, inactive, and resolved Allergies Substance Type Reaction Onset Date Resolved Date Statu s plavix Allergy 07/16/2012 Active Last Documented On 4 10:07AM ; [facility] Lipitor Allergy 05/20/2019 Active Last Documented On 4 10:07AM ; [facility] Darvocet A500 Allergy 07/16/2012 Activ e Last Documented On 4 10:07AM ; [facility] Crestor Allergy 05/20/2019 Active Last Documented On 10:07AM ; [facility] Encounters Includes: Encounters from 06/02/2023 through 06/02/2024 Encounter Provider Location Date Check-In Time Check-Out Time Diagnosis Post Op Tj Carrasco MD [facility] 024 10:02AM 10:22AM Overweight Post Op Tj Carrasco MD [facility] 024 8:40AM 9:17AM Overweight Post Op Tj Carrasco MD [facility] 024 1:13PM 2:06PM Overweight [facility] Tj Carrasco MD Surgery 024 8:36AM 01/31/2024 11:59PM [Patient Encounter] Tj Carrasco MD 024 01/31/2024 9:17AM 01/31/2024 11:59PM Follow Up Tj Carrasco MD [facility] 024 1:24PM 1:45PM Follow Up Tj Carrasco MD [facility] 024 10:36AM 11:02AM Follow Up Art Vizcarra MD [facility] 023 10:10AM 11:38AM MRI [facility] 023 2:04PM 2:19PM NEW PROBLEM/EST PT Tj Carrasco MD [facility] 023 10:00AM 10:59AM Overweight BRACE FITTING Tj Carrasco MD [facility] 023 07/25/2023 9:56AM 07/25/2023 11:59PM Physician Specified Art Vizcarra MD [facility] 023 1:45PM 3:40PM Insurance Includes: Active Insurance Policies Plan Name Member ID Group # Subscriber Relationship Effect ania Dates 1 - [employer] ([place]) Medicare [id number] Mariana Roach Clinical Notes Includes: Signed Clinical Notes starting from 11/03/2022 * Progress note Date Encounter Last Documented by 05/08/2024 Post Op Last documented on 05/12/2024; 9:27 PM, Tj Carrasco MD; [facility] Active Problems & Conditions - Joint [...] Medication list reviewed Patient is here today s/p right cubital Tunnel release and anterior subcutaneous transposition of the nerve, right long finger trigger finger release. She is doing well today. Her surgery occurred on 04/11/2024. She states her symptoms have improved. She now notices triggering of the LLF and some numbness in the R hand. She states she has previously had R carpal tunnel release in June of 2019. Current Medication - Acyclovir 5% External Ointment 14 days, 0 refills - Alpha Lipoic Acid 200 MG Oral Capsule 30 days, 0 refills - Amoxicillin-Pot Clavulanate 875-125 MG Oral Tablet 10 days, 0 refills - Benzonatate 200 MG Oral Capsule 5 days, 0 refills - Cefdinir 300 MG Oral Capsule 10 days, 0 refills - Doxycycline Hyclate 100 MG Oral Capsule 7 days, 0 refills - DULoxetine HCl 60 MG Oral Capsule Delayed Release Particles 90 days, 0 refills - Fluconazole 150 MG Oral Tablet 1 days, 0 refills - Gabapentin 400 MG Oral Capsule 90 days, 0 refills - Glimepiride 4 MG Oral Tablet 90 days, 0 refills - HYDROcodone-Acetaminophen 7.5-325 MG Oral Tablet 1 q 6 hours prn pain, 5 days, 0 refills - Losartan Potassium 100 MG Oral Tablet 90 days, 0 refills - Lovastatin 40 MG Oral Tablet 90 days, 0 refills - metFORMIN HCl ER 500 MG Oral Tablet Extended Release 24 Hour 90 days, 0 refills - Mounjaro 2.5 MG/0.5ML Subcutaneous Solution Pen-injector 28 days, 0 refills - Mupirocin 2% External Ointment 5 days, 0 refills - Neurontin 300 MG Oral Capsule 1 every bedtime, 30 days, 0 refills - Omeprazole 40 MG Oral Capsule Delayed Release 30 days, 0 refills - Ozempic (0.25 or 0.5 MG/DOSE) 2 MG/1.5ML Subcutaneous Solution Pen-injector once a day 0 days, 0 refills - Pantoprazole Sodium 40 MG Oral Tablet Delayed Release 90 days, 0 refills - Promethazine-DM 6.25-15 MG/5ML Oral Syrup 7 days, 0 refills - Promethazine-DM 6.25-15 MG/5ML Oral Syrup 6 days, 0 refills - Rheumate Oral Capsule [...] Past Surgical History: [place] [facility] [place] with [place] [facility] [place] Back surgery - Back surgery Social [...] and no abdominal pain. No Indigestion, no Peptic Ulcer, no GI Stomach Bleed, no Ulcers, and no Acid Reflux. Endocrine: No hot flashes, no muscle weakness, [...] No complaint of seasonal allergic reaction. reviewed 05/08/2024 The patient is awake alert oriented in time place and person. Has normal mood and affect. Is neatly dressed. Has normal gait and station. Pupils are equal and react to light normally. Eyes move normally. Mucous membranes are moist. The patient has no trouble with speech. Normal circulation. Normal sensation. No thenar or intrinsic atrophy. Normal strength. No sign of infection. Wound looks good and is healing. Near full ROM of the fingers. Positive carpal compression test on the R. Tender LLF A1 sylvia with triggering. Physical Findings - Vitals taken 05/08/2024 10:08 am jl Height 64 in 59 - 78 Weight 165 lbs 96 - 178 Body Mass Index 28.3 kg/m2 Body Surface Area 1.8 m2 Tests EMG/nerve conduction study from March 2019 shows carpal tunnel syndrome and cubital tunnel syndrome on the left Assessment - Overweight Previous Tests Imaging: X-Ray: An X-ray was performed. Counseling/Education - Tobacco non-user - Use of tobacco assessment performed - Lose weight Plan I explained to the patient that the diagnosis is triggering of the LLF. We discussed the course of treatment including a steroid injection versus surgery. At this time the patient would like to try an injection today as they do not elect to continue with surgery at this time. We will inject the patient and see them back as needed. After consent had been obtained the LLF A1 sylvia was injected with 0.5 cc of Kenalog-10 and 0.5 cc of 1% lidocaine. The patient tolerated the injection well. We also discussed that I feel she may have recurrent right carpal tunnel syndrome. We discussed trying a steroid injection into the carpal tunnel to help alleviate her symptoms. We will inject the patient and see her back if the injection does not help. After consent had been obtained the R carpal tunnel was injected with 0.5 cc of Kenalog-10 and 0.5 cc of 1% lidocaine. The patient tolerated the injection well. Practice Management Use of tobacco assessment performed. Care Team - VONDA CEJA MD - [facility] [employer] Notes This dictation was done with voice recognition software and may contain errors and omissions. transcribed by Remy Mccormick * Progress note Date Encounter Last Documented by 04/24/2024 Post Op Last documented on 04/29/2024; 3:29 PM, Tj Carrasco MD; [facility] Active Problems & Conditions - Joint [...] Medication list reviewed Patient is here today s/p right cubital Tunnel release and anterior subcutaneous transposition of the nerve, right long finger trigger finger release. She is doing well today. Her surgery occurred on 04/11/2024. She states she feels a little numbness in the fingers and has not noticed improvement yet. She complains of pain in her shoulder after wearing the splint. Current Medication - Acyclovir 5% External Ointment 14 days, 0 refills - Alpha Lipoic Acid 200 MG Oral Capsule 30 days, 0 refills - Amoxicillin-Pot Clavulanate 875-125 MG Oral Tablet 10 days, 0 refills - Benzonatate 200 MG Oral Capsule 5 days, 0 refills - Cefdinir 300 MG Oral Capsule 10 days, 0 refills - Doxycycline Hyclate 100 MG Oral Capsule 7 days, 0 refills - DULoxetine HCl 60 MG Oral Capsule Delayed Release Particles 90 days, 0 refills - Fluconazole 150 MG Oral Tablet 1 days, 0 refills - Gabapentin 400 MG Oral Capsule 90 days, 0 refills - Glimepiride 4 MG Oral Tablet 90 days, 0 refills - HYDROcodone-Acetaminophen 7.5-325 MG Oral Tablet 1 q 6 hours prn pain, 5 days, 0 refills - Losartan Potassium 100 MG Oral Tablet 90 days, 0 refills - Lovastatin 40 MG Oral Tablet 90 days, 0 refills - metFORMIN HCl ER 500 MG Oral Tablet Extended Release 24 Hour 90 days, 0 refills - Mounjaro 2.5 MG/0.5ML Subcutaneous Solution Pen-injector 28 days, 0 refills - Mupirocin 2% External Ointment 5 days, 0 refills - Neurontin 300 MG Oral Capsule 1 every bedtime, 30 days, 0 refills - Ozempic (0.25 or 0.5 MG/DOSE) 2 MG/1.5ML Subcutaneous Solution Pen-injector once a day 0 days, 0 refills - Promethazine-DM 6.25-15 MG/5ML Oral Syrup 7 days, 0 refills - Promethazine-DM 6.25-15 MG/5ML Oral Syrup 6 days, 0 refills - Rheumate Oral Capsule [...] Past Surgical History: 07/16/[place] [facility] [place] with [place] [facility] [place] surgery - Back surgery Social [...] and no abdominal pain. No Indigestion, no Peptic Ulcer, no GI Stomach Bleed, no Ulcers, and no Acid Reflux. Endocrine: No hot flashes, no muscle weakness, [...] No complaint of seasonal allergic reaction. reviewed 04/24/2024 The patient is awake alert oriented in time place and person. Has normal mood and affect. Is neatly dressed. Has normal gait and station. Pupils are equal and react to light normally. Eyes move normally. Mucous membranes are moist. The patient has no trouble with speech. Normal circulation. Normal sensation. No thenar or intrinsic atrophy. Normal strength. No sign of infection. Wound looks good and is healing. Sutures were removed today. Near full ROM of the fingers. She can touch the fingers to the palm but the RLF is still a little stiff. Physical Findings - Vitals taken 04/24/2024 08:50 am jl Height 64 in 59 - 78 Weight 165 lbs 96 - 178 Body Mass Index 28.3 kg/m2 Body Surface Area 1.8 m2 Assessment - Overweight Previous Tests Imaging: Intravascular Ultrasound (Coronary Vessel/Graft): An X-ray was performed. Counseling/Education - Tobacco non-user - Use of tobacco assessment performed - Lose weight Plan We will discontinue use of the splint at this time as she complains of shoulder pain wearing the splint. We will see her back in two weeks for recheck. In the meantime we will have her see OT for ROM today. Practice Management Use of tobacco assessment performed. Care Team - VONDA CEJA MD - [facility] [employer] Notes This dictation was done with voice recognition software and may contain errors and omissions. transcribed by Remy Mccormick * Progress note Date Encounter Last Documented by 04/17/2024 Post Op Last documented on 04/21/2024; 9:54 PM, Tj Carrasco MD; [facility] Active Problems & Conditions - Joint [...] Problem list reviewed - Medication list reviewed - - Review of medications documented Patient is here today s/p right cubital Tunnel release and anterior subcutaneous transposition of the nerve, right long finger trigger finger release. She is doing well today. Her surgery occurred on04/11/2024. She states she feels some tingling in the fingertips as well as burning and stinging. The splint was removed in the office today. Current Medication - Alpha Lipoic Acid 200 MG Oral Capsule 30 days, 0 refills - DULoxetine HCl 60 MG Oral Capsule Delayed Release Particles 90 days, 0 refills - Gabapentin 400 MG Oral Capsule 90 days, 0 refills - HYDROcodone-Acetaminophen 7.5-325 MG Oral Tablet 1 q 6 hours prn pain, 5 days, 0 refills - metFORMIN HCl ER [...] Past Surgical History: 07/16/[place] [facility] [place] with [place] [facility] [place] Back surgery - Back surgery Social [...] and no abdominal pain. No Indigestion, no Peptic Ulcer, no GI Stomach Bleed, no Ulcers, and no Acid Reflux. Endocrine: No hot flashes, no muscle weakness, [...] No complaint of seasonal allergic reaction. reviewed 04/17/2024 The patient is awake alert oriented in time place and person. Has normal mood and affect. Is neatly dressed. Has normal gait and station. Pupils are equal and react to light normally. Eyes move normally. Mucous membranes are moist. The patient has no trouble with speech. Normal circulation. Normal sensation. No thenar or intrinsic atrophy. Normal strength. No sign of infection. Wound looks good and is healing. Sutures were not removed today. Good ROM of the fingers. Physical Findings - Vitals taken 04/17/2024 01:16 pm Height 64 in 59 - 78 Weight 165 lbs 96 - 178 Body Mass Index 28.3 kg/m2 Body Surface Area 1.8 m2 Tests EMG/nerve conduction study from March 2019 shows carpal tunnel syndrome and cubital tunnel syndrome on the left Assessment - Overweight Previous Tests Imaging: Intravascular Ultrasound (Coronary Vessel/Graft): An X-ray was performed. Counseling/Education - Tobacco non-user - Use of tobacco assessment performed - Lose weight Plan StartCited - Other Neurontin 300 MG capsule 1 every bedtime, 30 days, 0 refills EndCited Patient is here today one week post cubital tunnel release. She is doing well today however she states she notices a burning, stinging pain in the fingers. We will order application of a long arm splint with the elbow at 135 degrees today for immobilization. We will prescribe Neurontin 300mg to address the burning pain in the hand. We will see her back in one week for suture removal. Practice Management Use of tobacco assessment performed. Care Team - VONDA CEJA MD - [facility] [employer] Notes This dictation was done with voice recognition software and may contain errors and omissions. transcribed by Remy Mccormick * Progress note Date Encounter Last Documented by 01/31/2024 Follow Up Last documented on 02/05/2024; 6:49 PM, Tj Carrasco MD; [facility] Active Problems & Conditions - Joint [...] Past Surgical History: 07/16/[place] [facility] [place] with [place] [facility] [place] Back surgery - Back surgery Social [...] Care Team - VONDA CEJA MD - [employer] [employer] Notes This dictation was done with voice recognition software and may contain errors and omissions. transcribed by Remy Mccormick * Progress note Date Encounter Last Documented by 11/29/2023 Follow Up Last documented on 12/05/2023; 1:24 PM, Tj Carrasco MD; [facility] Active Problems & Conditions - Joint [...] Past Surgical History: 07/16/2019 [place] [facility] [place] with [place] [facility] [place] Back surgery - Back surgery Social [...] Care Team - VONDA CEJA MD - [employer] [employer] Notes This dictation was done with voice recognition software and may contain errors and omissions. transcribed by Remy Mccormick * Progress note Date Encounter Last Documented by 07/25/2023 Follow Up Last documented on 07/25/2023; 11:35 AM, Art Vizcarra MD; [facility] Active Problems & Conditions - Joint [...] Past Surgical History: 07/16/2019 [place] [facility] [place] CTR with [place] [facility] [place] Back surgery - Back surgery Social [...] intervention. 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 Care Team - VONDA CEJA MD - [employer] Notes This dictation was done with voice recognition software and may contain errors and omissions. * Progress note Date Encounter Last Documented by 07/19/2023 NEW PROBLEM/EST PT Last document ed on 02/06/2024; 3:26 PM, Tj Carrasco MD; [facility] Active Problems & Conditions - Joint [...] Past Surgical History: 07/16/2019 [place] [facility] CTR with [place]position [place] [facility] [place] Back surgery Social History Not a [...] Care Team - VONDA CEJA MD - [employer] Notes This dictation was done with voice recognition software and may contain errors and omissions. * Progress note Date Encounter Last Documented by 07/10/2023 Physician Specified Mario allan on 07/10/2023; 8:38 PM, Art Vizcarra MD; [facility] Active Problems & Conditions - Joint [...] Past Surgical History: 07/16/2019 Right [place] @ [facility] [place] CTR with transposition @ [facility] [place] Back surgery - Back surgery Social [...] Care Team - VONDA CEJA MD - [employer] Notes This dictation was done with voice recognition software and may contain errors and omissions.
--- OUTSIDE RECORDS SUMMARY | 2024-06-02 18:58 | XMS_ITS | Clinical Summary ---
Author Name Unknown Address [address] [place] [address] Phone Organization [facility] , [facility] Address [address] [place] [address] Phone Care Team Providers Care Marking Devices Assembler Name Role Phone MARCIAL CHEUNG, VONDA Unavailable [phone] Tj Carrasco MD Unavailable [phone] Reason for Visit and Chief Complaint The Chief Complaint is: Left thumb pain/R middle finger pain Problems Includes: Problems addressed during this encounter and other active Problems Current Visit Onset Date Resolved Date Provider Conditio n Status Lower Back Pain 07/07/2021 Neo Sandhu MD A ctive Last Documented On 1 8:43AM ; [facility], [facility] Past Visits Onset Date Resolved Date Provider Condition Status Joint Pain in the Right Knee 07/10/2023 Art Vizcarra MD Active Last Documented On 3 1:51PM ; [facility], [facility] Neck Pain 07/07/2021 Neo Sandhu MD Active Last Documented On 1 8:43AM ; [facility], [facility] Joint Pain, Localized in Both Shoulders 07/21/2020 Haider Madera MD Active Last Documented On 0 3:28PM ; [facility], [facility] Joint Pain Fingers of Both Hands 05/20/2019 Isaac Carrasco MD Active Last Documented On 9 8:23AM ; [facility], [facility] Plan of Treatment We will discontinue use of the splint at this time as she complains of shoulder pain wearing the splint. We will see her back in two weeks for recheck. In the meantime we will have her see OT for ROM today. - Last Documented On 04/29/2024 3:29PM ; [facility], [facility] Instructions to patient Lose weight Last Documented On 4 8:50AM ; [facility], [facility] Assessments Includes: Assessments from this encounter Findings - Overweight - Last Documented On 04/29/2024 3:29PM ; [facility], [facility] Instructions Includes: Instructions from this encounter Instructions to patient Lose weight Last Documented On 4 8:50AM ; [facility], [facility] Medical Equipment - Implanted Devices Includes: Current Devices No Medical Equipment Recorded Medications Includes: Medications discussed during this encounter and other current Medications Current Medications (continue as prescribed) Pantoprazole Sodium 40 MG Oral Tablet Delayed Release 05/03/2024 Provider: Diagnosis: Last Documented On 4 10:07AM By Miguel Chiu ; [facility], [facility] Omeprazole 40 MG Oral Capsule Delayed Release 04/23/20 Provider: Diagnosis: Last Documented On 4 10:07AM By Miguel Chiu ; [facility], [facility] Losartan Potassium 100 MG Or al Tablet 04/18/2024 Provider: Therese falcon APRN Diagnosis: Last Documented On 4 8:50AM By Miguel Chiu ; [facility], [facility] Glimepiride 4 MG Oral Tablet 04/18/2024 Provider: Diagnosis: Last Documented On 4 8:50AM By Miguel Chiu ; [facility], [facility] Neurontin 300 MG Oral Capsule 04/17/2024 Provider: Tj Carrasco MD Diagnosis: 1 every bedtime Last Documented On 4 2:04PM By Dr. Carrasco ; [facility], [facility] HYDROcodone-Acetaminophen 7. 5-325 MG Oral Tablet 04/09/2024 Provider: Tj Carrasco MD Diagnosis: 1 q 6 hours prn pain Last Documented On 4 9:24AM By Dr. Carrasco ; [facility], [facility] Promethazine-DM 6.25-15 MG/5 ML Oral Syrup 04/02/2024 Provider: Therese falcon APRN Diagnosis: Last Documented On 4 8:50AM By Miguel Chiu ; [facility] Mounjaro 2.5 MG/0.5ML Subcutaneous Solution Pen-inject or 03/31/2024 Provider: Diagnosis: Last Documented On 4 8:50AM By Miguel Chiu ; [facility] Doxycycline Hyclate 100 MG Oral Capsule 03/23/2024 P rovider: VONDA CEJA MD Diagnosis: Last Documented On 4 8:50AM By Miguel Chiu ; [facility] Benzonatate 200 MG Oral Capsule 03/23/2024 Provider: VONDA CEJA MD Diagnosis: Last Documented On 4 8:50AM By Miguel Chiu ; [facility] Promethazine-DM 6.25-15 MG/5 ML Oral Syrup 03/19/2024 Provider: Therese falcon APRN Diagnosis: Last Documented On 4 8:50AM By Miguel Chiu ; [facility] Fluconazole 150 MG Oral Tablet 03/16/2024 Provider: Diagnosis: Last Documented On 4 8:50AM By Miguel Chiu ; [facility] Cefdinir 300 MG Oral Capsule 03/15/2024 Provider: Therese Gomes APRN Diagnosis: Last Documented On 4 8:50AM By Miguel Chiu ; [facility] Lovastatin 40 MG Oral Tablet 03/04/2024 Provider: VONDA CEJA MD Diagnosis: Last Documented On 4 8:50AM By Miguel Chiu ; [facility] Acyclovir 5% External Ointment 01/23/2024 Provider: Therese Gomes APRN Diagnosis: Last Documented On 4 8:50AM By Miguel Chiu ; [facility] Mupirocin 2% External Ointment 01/23/2024 Provider: Therese Gomes APRN Diagnosis: Last Documented On 4 8:50AM By Miguel Chiu ; [facility] Amoxicillin-Pot Clavulanate 875-125 MG Oral Tablet 01/23/2024 Provider: Therese falcon APRN Diagnosis: Last Documented On 4 8:50AM By Miguel Chiu ; [facility], [facility] Ozempic (0.25 or 0.5 MG/DOSE ) 2 MG/1.5ML Subcutaneous Solution Pen-injector 11/29/2023 Provider: Diagnosis: Last Documented On 4 10:45AM By Natasha Figueredo ; [facility], [facility] Alpha Lipoic Acid 200 MG Oral Capsule 07/13/2023 Pro vider: KATHRYN MARISCAL MD Diagnosis: Last Documented On 3 10:03AM By Garth Cramer ; [facility], [facility] Rheumate Oral Capsule 07/13/2023 Provider: KATHRYN ARMENTA MD Diagnosis: Last Documented On 3 10:03AM By Garth Cramer ; [facility], [facility] metFORMIN HCl ER 500 MG Oral Tablet Extended Rel ease 24 Hour 07/11/2023 Provider: Diagnosis: Last Documented On 3 10:03AM By Garth Cramer ; [facility], [facility] DULoxetine HCl 60 MG Oral Ca psule Delayed Release Particles 07/03/2023 Provider: JUAN DAVID COTO MD Diagnosis: Last Documented On 3 10:03AM By Garth Cramer ; [facility], [facility] Gabapentin 400 MG Oral Capsule 07/03/2023 Provider: JUAN DAVID COTO MD Diagnosis: Last Documented On 3 10:03AM By Garth Cramer ; [facility], [facility] Past Medications on file Ativan 1 MG Oral Tablet 07/18/2023 - 07/19/2023 Provid er: Art Vizcarra MD Diagnosis: take as directed; Take 1 tab let 1 hour before MRI; May take an additional tablet if needed. Last Documented On 3 3:09PM By Dr. Vizcarra ; [facility], [facility] Medications Administered Includes: Administered Medications from this encounter No Administered Medications Recorded Vital Signs Includes: Vital Signs from this encounter Vital Name 04/24/2024 08:50A Height (in) 64 Weight (lb) 165 Body Mass Index 28.3 Body Surface Area 1.8 Note: jl Last Documented: On 04/24/2024 8:51AM ; [facility], [facility] Results Includes: Results discussed during this encounter No Results Recorded For Specified Dates History of Present Illness Includes: History of Present Illness from this encounter HERMANN Villaseñor is a 63 year old female. [...] in her shoulder after wearing the splint. Social History Description Last Updated Tobacco non-user 02/06/2024 Last Documented On 4 8:50AM ; [facility] No recent change in diet 02/06/2024 Last Documented On 4 8:50AM ; [facility] Not a current smoker. 02/06/2024 Last Documented On 4 8:50AM ; [facility] Non-smoker 11/17/2021 Last Documented On 4 8:50AM ; [facility] Exercising regularly 2-3 times a week Last Documented On 4 8:50AM ; [facility] No caffeine use 08/23/2021 Last Documented On 4 8:50AM ; [facility] No recent change in diet 08/23/2021 Last Documented On 4 8:50AM ; [facility] Not a current smoker. 07/21/2020 Last Documented On 4 8:50AM ; [facility] No tobacco use 07/21/2020 Last Documented On 4 8:50AM ; [facility] Not a current smoker 07/21/2020 Last Documented On 4 8:50AM ; [facility] Not using alcohol 07/21/2020 Last Documented On 4 8:50AM ; [facility] Not using drugs 07/21/2020 Last Documented On 4 8:50AM ; [facility] Smoking status : Never smoker 07/21/2020 Last Documented On 4 8:50AM ; [facility] Procedures and Surgical History Includes: Procedures from this encounter Procedures Code Diagnosis Performing Provider Service L ocation Service Date use of tobacco assessment performed 1000F Last Documented On 4 8:50AM ; [facility] an X-ray was performed 60348 Last Documented On 4 8:50AM ; [facility] Surgical History Last Updated History of back surgery 07/21/2020 Last Documented On 4 8:50AM ; [facility] History of heart surgery 07/21/2020 Last Documented On 4 8:50AM ; [facility] Medical History Includes: Medical History addressed during this encounter Description Last Updated Recent immunization for flu 08/20/2020 1 Last Documented On 4 8:50AM ; [facility] Past Surgical History: 07/16 Right CTR @ [facility] ~06/29/2021 Left CTR with transposition @ [facility] 07/12/2021 Last Documented On 4 8:50AM ; [facility] Past surgical history non-contributory: Foot & hand sx 07/21/2020 Last Documented On 4 8:50AM ; [facility] Arthritis 07/21/2020 Last Documented On 4 8:50AM ; [facility] Back surgery 07/21/2020 Last Documented On 4 8:50AM ; [facility] Heart surgery 07/21/2020 Last Documented On 4 8:50AM ; [facility] Hypertension 07/21/2020 Last Documented On 4 8:50AM ; [facility] No recent immunization for pneumococcal pneumonia 07/21/2020 Last Documented On 4 8:50AM ; [facility] Thyroid Disease 07/21/2020 Last Documented On 4 8:50AM ; [facility] A recent injection 07/21/2020 Last Documented On 4 8:50AM ; [facility] Arthritic joint problems 07/21/2020 Last Document[facility] 4 8:50AM ; [facility] History of diabetes mellitus 07/21/2020 Last Documented On 4 8:50AM ; [facility] History of heart disease 07/21/2020 Last Documented On 4 8:50AM ; [facility], [facility] Intermittent hypertension 07/21/2020 Last Documented On 4 8:50AM ; [facility] Thyroid disease 07/21/2020 Last Documented On 4 8:50AM ; [facility], [facility] Family History Includes: Family History addressed during this encounter Description Last Updated Family history of cancer 08/25/2021 Last Documented On 4 8:50AM ; [facility] Diabetes mellitus 08/23/2021 Last Documented On 4 8:50AM ; [facility] Family history of heart disease 08/23/20 21 Last Documented On 4 8:50AM ; [facility] Fraternal history of diabetes mellitus 0 07/21/2020 Last Documented On 4 8:50AM ; [facility] Fraternal history of family history of h eart disease 07/21/2020 Last Documented On 4 8:50AM ; [facility] Maternal history of family history of ca ncer 07/21/2020 Last Documented On 4 8:50AM ; [facility], [facility] Review of Systems [...] the RLF is still a little stiff. Mental Status Includes: Mental Status from this encounter Description No anxiety Functional Status Includes: Functional Status from this encounter No Functional Status Recorded Physical Exam Includes: Physical Exam from this encounter Allergies Includes: Active Allergies Substance Type Reaction Onset Date Resolved Date Statu s plavix Allergy 07/16/2012 Active Last Documented On 4 10:07AM ; [facility] Lipitor Allergy 05/20/2019 Active Last Documented On 4 10:07AM ; [facility] Darvocet A500 Allergy 07/16/2012 Activ e Last Documented On 4 10:07AM ; [facility] Crestor Allergy 05/20/2019 Active Last Documented On 4 10:07AM ; [facility] Encounters Encounter Provider Location Date Check-In Time Check-Out Time Diagnosis Post Op Tj Carrasco MD [facility] 4 8:40AM 9:17AM Overweight Insurance Includes: Active Insurance Policies Plan Name Member ID Group # Subscriber Relationship Effect ania Dates 1 - [place] Medicare [id number] Mariana Villaseñor Self Clinical Notes Includes: Clinical Notes from this encounter * Progress note Date Encounter Last Documented by 04/24/2024 Post Op Last documented on 04/29/2024; 3:29 PM, Tj Carrasco MD; [facility] Active Problems & Conditions - Joint Pain [...] Past Surgical History: 07/16/2019 Right CTR @ [facility] 06/29/2021 Left CTR with transposition @ [facility] - Back surgery - [...] Care Team - VONDA CEJA MD - BUSINESS AND SERVICES INSTRUCTOR Notes This dictation was done with voice recognition software and may contain errors and omissions. transcribed by Remy Mccormick
--- OUTSIDE RECORDS SUMMARY | 2024-06-02 18:58 | XMS_ITS | Clinical Summary ---
Author Name Unknown Address [address] [place] [address] Phone Organization [facility] Address [address] [place] [address] Phone Care Team Providers Care Production Sound Mixer Name Role Phone MARCIAL CHEUNG, VONDA Unavailable [phone] Tj Carrasco MD Unavailable [phone] Reason for Visit and Chief Complaint The Chief Complaint is: Left thumb pain/R middle finger pain Problems Includes: Problems addressed during this encounter and other active Problems Current Visit Onset Date Resolved Date Provider Conditio n Status Lower Back Pain 07/07/2021 Neo Sandhu MD A ctive Last Documented On 1 8:43AM ; [facility] Past Visits Onset Date Resolved Date Provider Condition Status Joint Pain in the Right Knee 07/10/2023 Art Vizcarra MD Active Last Documented On 3 1:51PM ; [facility] Neck Pain 07/07/2021 Neo Sandhu MD Active Last Documented On 1 8:43AM ; [facility] Joint Pain, Localized in Both Shoulders 07/21/2020 Haider Madera MD Active Last Documented On 0 3:28PM ; [facility] Joint Pain Fingers of Both Hands 05/20/2019 Isaac Carrasco MD Active Last Documented On 9 8:23AM ; [facility] Plan of Treatment I explained to the [...] the injection well. - Last Documented On 05/12/2024 9:27PM ; [facility] Instructions to patient Lose weight Last Documented On 4 10:08AM ; [facility] Assessments Includes: Assessments from this encounter Findings - Overweight - Last Documented On 05/12/2024 9:27PM ; [facility] Instructions Includes: Instructions from this encounter Instructions to patient Lose weight Last Documented On 4 10:08AM ; [facility] Medical Equipment - Implanted Devices Includes: Current Devices No Medical Equipment Recorded Medications Includes: Medications discussed during this encounter and other current Medications Current Medications (continue as prescribed) Pantoprazole Sodium 40 MG Oral Tablet Delayed Release 05/03/2024 Provider: Diagnosis: Last Documented On 4 10:07AM By Miguel Chiu ; [facility] Omeprazole 40 MG Oral Capsule Delayed Release 04/23/20 24 Provider: Diagnosis: Last Documented On 4 10:07AM By Miguel Chiu ; [facility] Losartan Potassium 100 MG Or al Tablet 04/18/2024 Provider: Therese falcon APRN Diagnosis: Last Documented On 4 8:50AM By Miguel Chiu ; [facility] Glimepiride 4 MG Oral Tablet 04/18/2024 Provider: Diagnosis: Last Documented On 4 8:50AM By Migeul Chiu ; [facility] Neurontin 300 MG Oral Capsule 04/17/2024 Provider: Tj Carrasco MD Diagnosis: 1 every bedtime Last Documented On 4 2:04PM By Dr. Carrasco ; [facility] HYDROcodone-Acetaminophen 7. 5-325 MG Oral Tablet 04/09/2024 Provider: Tj Carrasco MD Diagnosis: 1 q 6 hours prn pain Last Documented On 4 9:24AM By Dr. Carrasco ; [facility] Promethazine-DM 6.25-15 MG/5 ML Oral Syrup 04/02/2024 Provider: Therese falcon IT NETWORK ARCHITECT Diagnosis: Last Documented On 4 8:50AM By Miguel Chiu ; [facility] Mounjaro 2.5 MG/0.5ML Subcutaneous Solution Pen-inject or 03/31/2024 Provider: Diagnosis: Last Documented On 4 8:50AM By Miguel Chiu ; [facility] Doxycycline Hyclate 100 MG Oral Capsule 03/23/2024 P rovider: VONDA CEJA MD Diagnosis: Last Documented On 4 8:50AM By Miguel Chiu ; [facility] Benzonatate 200 MG Oral Capsule 03/23/2024 Provider: VONDA CEJA MD Diagnosis: Last Documented On 4 8:50AM By Miguel Cihu ; [facility] Promethazine-DM 6.25-15 MG/5 ML Oral Syrup 03/19/2024 Provider: Therese falcon IT NETWORK ARCHITECT Diagnosis: Last Documented On 4 8:50AM By Miguel Chiu ; [facility] Fluconazole 150 MG Oral Tablet 03/16/2024 Provider: Diagnosis: Last Documented On 4 8:50AM By Miguel Chiu ; [facility] Cefdinir 300 MG Oral Capsule 03/15/2024 Provider: Therese Gomes APRN Diagnosis: Last Documented On 4 8:50AM By Miguel Chiu ; [facility] Lovastatin 40 MG Oral Tablet 03/04/2024 Provider: VONDA CEJA MD Diagnosis: Last Documented On 4 8:50AM By Miguel Chiu ; [facility] Acyclovir 5% External Ointment 01/23/2024 Provider: Therese Gomes IT NETWORK ARCHITECT Diagnosis: Last Documented On 4 8:50AM By Miguel Chiu ; [facility] Mupirocin 2% External Ointment 01/23/2024 Provider: Therese Gomes IT NETWORK ARCHITECT Diagnosis: Last Documented On 4 8:50AM By Miguel Chiu ; [facility] Amoxicillin-Pot Clavulanate 875-125 MG Oral Tablet 01/23/2024 Provider: Therese falcon IT NETWORK ARCHITECT Diagnosis: Last Documented On 4 8:50AM By Miguel Chiu ; [facility] Ozempic (0.25 or 0.5 MG/DOSE ) 2 MG/1.5ML Subcutaneous Solution Pen-injector 11/29/2023 Provider: Diagnosis: Last Documented On 4 10:45AM By Natasha Figueredo ; [facility] Alpha Lipoic Acid 200 MG Oral Capsule 07/13/2023 Pro vider: KATHRYN MARISCAL MD Diagnosis: Last Documented On 3 10:03AM By Garth Cramer ; [facility] Rheumate Oral Capsule 07/13/2023 Provider: KATHRYN ARMENTA MD Diagnosis: Last Documented On 3 10:03AM By Garth Cramer ; [facility] metFORMIN HCl ER 500 MG Oral Tablet Extended Rel ease 24 Hour 07/11/2023 Provider: Diagnosis: Last Documented On 3 10:03AM By Garth Cramer ; [facility] DULoxetine HCl 60 MG Oral Ca psule Delayed Release Particles 07/03/2023 Provider: JUAN DAVID COTO MD Diagnosis: Last Documented On 3 10:03AM By Garth Cramer ; [facility] Gabapentin 400 MG Oral Capsule 07/03/2023 Provider: JUAN DAVID COTO MD Diagnosis: Last Documented On 3 10:03AM By Garth Cramer ; [facility] Past Medications on file Ativan 1 MG Oral Tablet 07/18/2023 - 07/19/2023 Provid er: Art Vizcarra MD Diagnosis: take as directed; Take 1 tab let 1 hour before MRI; May take an additional tablet if needed. Last Documented On 3 3:09PM By Dr. Vizcarra ; [facility] Medications Administered Includes: Administered Medications from this encounter No Administered Medications Recorded Vital Signs Includes: Vital Signs from this encounter Vital Name 05/08/2024 10:08A Height (in) 64 Weight (lb) 165 Body Mass Index 28.3 Body Surface Area 1.8 Note: jl Last Documented: On 05/08/2024 10:08A M ; [facility] Results Includes: Results discussed during this [...] carpal tunnel release in June of 2019. Social History Description Last Updated Tobacco non-user 02/06/2024 Last Documented On 4 10:07AM ; [facility] No recent change in diet 02/06/2024 Last Documented On 4 10:07AM ; [facility] Not a current smoker. 02/06/2024 Last Documented On 4 10:07AM ; [facility] Non-smoker 11/17/2021 Last Documented On 4 10:07AM ; [facility] Exercising regularly 2-3 times a week Last Documented On 4 10:07AM ; [facility] No caffeine use 08/23/2021 Last Documented On 4 10:07AM ; [facility] No recent change in diet 08/23/2021 Last Documented On 4 10:07AM ; [facility] Not a current smoker. 07/21/2020 Last Documented On 4 10:07AM ; [facility] No tobacco use 07/21/2020 Last Documented On 4 10:07AM ; [facility] Not a current smoker 07/21/2020 Last Documented On 4 10:07AM ; [facility] Not using alcohol 07/21/2020 Last Documented On 4 10:07AM ; [facility] Not using drugs 07/21/2020 Last Documented On 4 10:07AM ; [facility] Smoking status : Never smoker 07/21/2020 Last Documented On 4 10:07AM ; [facility] Procedures and Surgical History Includes: Procedures from this encounter Procedures Code Diagnosis Performing Provider Service Location Service Date THER INJECTION, CARP TUNNEL (Unrelated Procedure, RIGHT) Carpal tunnel syndrome, right upper limb Tj Carrasco MD [facility] 05/08/2024 Last Documented On 4 10:59AM ; [facility] INJ TENDON SHEATH/LIGAMENT (Distinct procedure, LEFT) 17441 Trigger finger, left middle finger Tj Carrasco MD [facility] 05/08/2024 Last Documented On 4 10:59AM ; [facility] Triamcinolone/Kenalog, 10mg per cc [id number] Trigger finger, left middle finger Tj Carrasco MD [facility] 05/08/2024 Last Documented On 4 10:59AM ; [facility] use of tobacco assessment performed 1000F Last Documented On 4 10:08AM ; [facility] an X-ray was performed 75711 Last Documented On 4 10:08AM ; [facility] Surgical History Last Updated History of back surgery 07/21/2020 Last Documented On 4 10:07AM ; [facility] History of heart surgery 07/21/2020 Last Documented On 4 10:07AM ; [facility] Medical History Includes: Medical History addressed during this encounter Description Last Updated Recent immunization for flu 08/20/2020 1 Last Documented On 4 10:07AM ; [facility] Past Surgical History: 07/16 Right CTR @ [facility] ~06/29/2021 Left CTR with transposition @ [facility] [place] 07/12/2021 Last Documented On 4 10:07AM ; [facility] Past surgical history non-contributory: Foot & hand sx 07/21/2020 Last Documented On 4 10:07AM ; [facility] Arthritis 07/21/2020 Last Documented On 4 10:07AM ; [facility] Back surgery 07/21/2020 Last Documented On 4 10:07AM ; [facility] Heart surgery 07/21/2020 Last Documented On 4 10:07AM ; [facility] Hypertension 07/21/2020 Last Documented On 4 10:07AM ; [facility] No recent immunization for pneumococcal pneumonia 07/21/2020 Last Documented On 4 10:07AM ; [facility] Thyroid Disease 07/21/2020 Last Documented On 4 10:07AM ; [facility] A recent injection 07/21/2020 Last Documented On 4 10:07AM ; [facility] Arthritic joint problems 07/21/2020 Last Documented On 4 10:07AM ; [facility] History of diabetes mellitus 07/21/2020 Last Documented On 4 10:07AM ; [facility] History of heart disease 07/21/2020 Last Documented On 4 10:07AM ; [facility] Intermittent hypertension 07/21/2020 Last Documented On 4 10:07AM ; [facility] Thyroid disease 07/21/2020 Last Documented On 4 10:07AM ; [facility] Family History Includes: Family History addressed during this encounter Description Last Updated Family history of cancer 08/25/2021 Last Documented On 4 10:07AM ; [facility] Diabetes mellitus 08/23/2021 Last Documented On 4 10:07AM ; [facility] Family history of heart disease 08/23/20 21 Last Documented On 4 10:07AM ; [facility] Fraternal history of diabetes mellitus 0 07/21/2020 Last Documented On 4 10:07AM ; [facility] Fraternal history of family history of h eart disease 07/21/2020 Last Documented On 4 10:07AM ; [facility] Maternal history of family history of ca ncer 07/21/2020 Last Documented On 4 10:07AM ; [facility] Review of Systems Includes: Review of [...] R. Tender LLF A1 sylvia with triggering. Mental Status Includes: Mental Status from this encounter Description No anxiety Functional Status Includes: Functional Status from this encounter No Functional Status Recorded Physical Exam Includes: Physical Exam from this encounter Allergies Includes: Active Allergies Substance Type Reaction Onset Date Resolved Date Statu s plavix Allergy 07/16/2012 Active Last Documented On 4 10:07AM ; [facility] Lipitor Allergy 05/20/2019 Active Last Documented On 4 10:07AM ; [facility] Darvocet A500 Allergy 07/16/2012 Activ e Last Documented On 4 10:07AM ; [facility] Crestor Allergy 05/20/2019 Active Last Documented On 4 10:07AM ; [facility] Encounters Encounter Provider Location Date Check-In Time Check-Out Time Diagnosis Post Op Tj Carrasco MD [facility] 4 10:02AM 10:22AM Overweight Insurance Includes: Active Insurance Policies Plan Name Member ID Group # Subscriber Relationship Effect ania Dates 1 - BCBS ([place]) Medicare [id number] Mariana Villaseñor Self Clinical Notes Includes: Clinical Notes from this encounter * Progress note Date Encounter Last Documented by 05/08/2024 Post Op Last documented on 05/12/2024; 9:27 PM, Tj Carrasco MD; [facility] Active Problems & Conditions - [...] Past Surgical History: 07/16/2019 Right CTR @ [facility] [place] 06/29/2021 Left CTR with transposition @ [facility] [place] - Back surgery - [...] Care Team - VONDA CEJA MD - COLLECTIONS REPRESENTATIVE Notes This dictation was done with voice recognition software and may contain errors and omissions. transcribed by Remy Mccormick
--- OUTSIDE RECORDS SUMMARY | 2024-06-02 18:58 | XMS_ITS ---
Care Plan - [facility] Created on: June 02, 2024 Mariana Villaseñor V : 1960 Sex: Female Author Name Unknown Address [address] [address] Phone Organization [facility] Address [address] [place] [place] [address] Phone Care Team Providers Care Head Char Filter Tank Tender Name Role Phone MARCIAL CHEUNG, VONDA Unavailable [phone] Danilo CHEUNG, Tj Early Unavailable [phone]
[2024-06-02 18:59] LABS: Basophils # 0.1 K/mm3 (0-0.2); Basophils % 0.5 % (0.1-2.0); Eosinophils # 0.2 K/mm3 (0.0-0.4); Eosinophils % 1.6 % (0.1-12.0); Hematocrit 37.5 % (37.0-47.0); Hemoglobin 12.1 g/dL (12.2-16.2); Lymphocytes # 1.8 K/mm3 (0.7-4.5); Lymphocytes % 16.8 % (10-50); Mean Corpuscular HGB Conc 32.1 g/dL (31.8-35.4); Mean Corpuscular Hemoglobin 29.9 pg (27.0-31.2); Mean Corpuscular Volume 93.2 fl (81-99); Mean Platelet Volume 7.2 fl (7.4-10.4); Monocytes # 0.4 K/mm3 (0.1-1.0); Monocytes % 3.6 % (1.7-9.3); Neutrophils # 8.5 K/mm3 (1.8-7.8); Neutrophils % 77.6 % (37.0-80.0); Platelet Count 331 K/mm3 (142-424); Red Blood Count 4.03 M/mm3 (4.20-5.40)
--- OUTSIDE RECORDS SUMMARY | 2024-06-02 18:59 | XMS_ITS | Clinical Summary ---
Author Name Unknown Address [address] [place] [address] Phone Organization [facility] Address [address] [place] [address] Phone Care Team Providers Care Cloth Drier Name Role Phone MARCIAL CHEUNG, VONDA Unavailable [phone] Danilo CHEUNG, Tj Early Unavailable [phone] Reason for Visit and Chief Complaint [Patient Encounter] Problems Includes: Problems addressed during this encounter and other active Problems All Visits Onset Date Resolved Date Provider Condition S tatus Joint Pain in the Right Knee 07/10/2023 Art Vizcarra MD Active Last Documented On 3 1:51PM ; [facility] Neck Pain 07/07/2021 Neo Sandhu MD Active Last Documented On 1 8:43AM ; [facility] Lower Back Pain 07/07/2021 Neo Sandhu MD A ctive Last Documented On 1 8:43AM ; [facility] Joint Pain, Localized in Both Shoulders 07/21/2020 Haider Madera MD Active Last Documented On 0 3:28PM ; [facility] Joint Pain Fingers of Both Hands 05/20/2019 Isaac Carrasco MD Active Last Documented On 9 8:23AM ; [facility] Plan of Treatment No Plan of Treatment Recorded Assessments Includes: Assessments from this encounter No Assessments Recorded Medical Equipment - Implanted Devices Includes: Current Devices No Medical Equipment Recorded Medications Includes: Medications discussed during this encounter and other current Medications New / Renewed during this visit Tj Carrasco MD on 04/09/2024 HYDROcodone-Acetaminophen 7. 5-325 MG Oral Tablet Provider: Tj Carrasco MD 5 day supply: 30 tablet, 0 refills Diagnosis: 1 q 6 hours prn pain Pharmacy: [facility] [address], [address] - Last Documented On 4 9:24AM By Dr. Carrasco ; [facility] Current Medications (continue as prescribed) Pantoprazole Sodium 40 MG Oral Tablet Delayed Release 05/03/2024 Provider: Diagnosis: Last Documented On 4 10:07AM By Miguel Chiu ; [facility] Omeprazole 40 MG Oral Capsule Delayed Release 04/23/20 Provider: Diagnosis: Last Documented On 4 10:07AM By Miguel Chiu ; [facility] Losartan Potassium 100 MG Or al Tablet 04/18/2024 Provider: Therese falcon APRN Diagnosis: Last Documented On 4 8:50AM By Miguel Chiu ; [facility] Glimepiride 4 MG Oral Tablet 04/18/2024 Provider: Diagnosis: Last Documented On 4 8:50AM By Miguel Chiu ; [facility] Neurontin 300 MG Oral Capsule 04/17/2024 Provider: Tj Carrasco MD Diagnosis: 1 every bedtime Last Documented On 4 2:04PM By Dr. Carrasco ; [facility] Promethazine-DM 6.25-15 MG/5 ML Oral Syrup 04/02/2024 Provider: Therese falcon APRN Diagnosis: Last Documented On 4 8:50AM By Miguel Chiu ; [facility] Mounjaro 2.5 MG/0.5ML Subcutaneous Solution Pen-inject or 03/31/2024 Provider: Diagnosis: Last Documented On 4 8:50AM By Miguel Chiu ; [facility] Doxycycline Hyclate 100 MG Oral Capsule 03/23/2024 Mazin rivera: VONDA CEJA MD Diagnosis: Last Documented On 4 8:50AM By Miguel Chiu ; [facility] Benzonatate 200 MG Oral Capsule 03/23/2024 Provider: VONDA CEJA MD Diagnosis: Last Documented On 4 8:50AM By Miguel Chiu ; [facility] Promethazine-DM 6.25-15 MG/5 ML Oral Syrup 03/19/2024 Provider: Therese falcon RUBBER BALL FINISHER Diagnosis: Last Documented On 4 8:50AM By Miguel Chiu ; [facility] Fluconazole 150 MG Oral Tablet 03/16/2024 Provider: Diagnosis: Last Documented On 4 8:50AM By Miguel Chiu ; [facility] Cefdinir 300 MG Oral Capsule 03/15/2024 Provider: Therese Gomes APRN Diagnosis: Last Documented On 4 8:50AM By Miguel Chiu ; [facility] Lovastatin 40 MG Oral Tablet 03/04/2024 Provider: VONDA CEJA MD Diagnosis: Last Documented On 4 8:50AM By Miguel Chiu ; [facility] Acyclovir 5% External Ointment 01/23/2024 Provider: Therese Gomes RUBBER BALL FINISHER Diagnosis: Last Documented On 4 8:50AM By Miguel Chiu ; [facility] Mupirocin 2% External Ointment 01/23/2024 Provider: Therese Gomes APRN Diagnosis: Last Documented On 4 8:50AM By Miguel Chiu ; [facility] Amoxicillin-Pot Clavulanate 875-125 MG Oral Tablet 01/23/2024 Provider: Therese falcon RUBBER BALL FINISHER Diagnosis: Last Documented On 4 8:50AM By Miguel Chiu ; [facility] Ozempic (0.25 or 0.5 MG/DOSE ) 2 MG/1.5ML Subcutaneous Solution Pen-injector 11/29/2023 Provider: Diagnosis: Last Documented On 4 10:45AM By Natasha Figueredo ; [facility] Alpha Lipoic Acid 200 MG Oral Capsule 07/13/2023 Pro vider: KATHRYN MARISCAL MD Diagnosis: Last Documented On 3 10:03AM By Garth Cramer ; [facility] Rheumate Oral Capsule 07/13/2023 Provider: KATHRYN ARMENTA MD Diagnosis: Last Documented On 3 10:03AM By Garth Cramer ; [facility] metFORMIN HCl ER 500 MG Oral Tablet Extended Rel ease 24 Hour 07/11/2023 Provider: Diagnosis: Last Documented On 3 10:03AM By Garth Cramer ; [facility] DULoxetine HCl 60 MG Oral Ca psule Delayed Release Particles 07/03/2023 Provider: JUAN DAVID COTO MD Diagnosis: Last Documented On 3 10:03AM By Garth Cramer ; [facility] Gabapentin 400 MG Oral Capsule 07/03/2023 Provider: JUAN DAVID COTO MD Diagnosis: Last Documented On 3 10:03AM By Garth Cramer ; [facility] Medications Administered Includes: Administered Medications from [...] Active Last Documented On 4 10:07AM ; [facility] Lipitor Allergy 05/20/2019 Active Last Documented On 4 10:07AM ; [facility] Darvocet A500 Allergy 07/16/2012 Activ e Last Documented On 4 10:07AM ; [facility] Crestor Allergy 05/20/2019 Active Last Documented On 4 10:07AM ; [facility] Encounters Encounter Provider Location Date Check-In Time Check-Out Time Diagnosis [Patient Encounter] Tj Carrasco MD 04/09/2024 9:17AM 11:59PM Insurance Includes: Active Insurance Policies Plan Name Member ID Group # Subscriber Relationship Effect ania Dates 1 - BCBS ([place]) Medicare [id number] Mariana Villaseñor Self Clinical Notes Includes: Clinical Notes from this encounter No Clinical Notes Recorded
--- OUTSIDE RECORDS SUMMARY | 2024-06-02 18:59 | XMS_ITS | Clinical Summary ---
Author Name Unknown Address [address] [place] [address] Phone Organization [facility] Address [address] [place] [address] Phone Care Team Providers Care Quality Control Inspector Heading Name Role Phone MARCIAL CHEUNG, VONDA Unavailable [phone] Tj Carrasco MD Unavailable [phone] Reason for Visit and Chief Complaint [facility] Suites Problems Includes: Problems addressed during this encounter and other active Problems All Visits Onset Date Resolved Date Provider Condition S tatus Joint Pain in the Right Knee 07/10/2023 Art Vizcarra MD Active Last Documented On 3 1:51PM ; [facility] Neck Pain 07/07/2021 Neo Sandhu MD Active Last Documented On 1 8:43AM ; [facility] Lower Back Pain 07/07/2021 Neo Sandhu MD A ctive Last Documented On 1 8:43AM ; [facility] Joint Pain, Localized in Both Shoulders 07/21/2020 Haider Madera MD Active Last Documented On 0 3:28PM ; [facility] Joint Pain Fingers of Both Hands 05/20/2019 Isaac Carrasco MD Active Last Documented On 9 8:23AM ; [facility] Plan of Treatment No Plan of [...] On 4 10:07AM By Miguel Chiu ; [facility] Omeprazole 40 MG Oral Capsule Delayed Release 04/23/20 Provider: Diagnosis: Last Documented On 4 10:07AM By Miguel Chiu ; [facility] Losartan Potassium 100 MG Or al Tablet 04/18/2024 Provider: Therese falcon APRN Diagnosis: Last Documented On 4 8:50AM By Miguel Chiu ; [facility] Glimepiride 4 MG Oral Tablet 04/18/2024 Provider: Diagnosis: Last Documented On 4 8:50AM By Miguel Chiu ; [facility] Neurontin 300 MG Oral Capsule 04/17/2024 Provider: Tj Carrasco MD Diagnosis: 1 every bedtime Last Documented On 4 2:04PM By Dr. Carrasco ; [facility] HYDROcodone-Acetaminophen 7. 5-325 MG Oral Tablet 04/09/2024 Provider: Tj Carrasco MD Diagnosis: 1 q 6 hours prn pain Last Documented On 4 9:24AM By Dr. Carrasco ; [facility], [facility] Promethazine-DM 6.25-15 MG/5 ML Oral Syrup 04/02/2024 Provider: Therese falcon APRN Diagnosis: Last Documented On 4 8:50AM By Miguel Chiu ; [facility] Mounjaro 2.5 MG/0.5ML Subcutaneous Solution Pen-inject or 03/31/2024 Provider: Diagnosis: Last Documented On 4 8:50AM By Miguel Chiu ; [facility] Doxycycline Hyclate 100 MG Oral Capsule 03/23/2024 Mazin rivera: VONDA CEJA MD Diagnosis: Last Documented On 4 8:50AM By Miguel Chiu ; [facility] Benzonatate 200 MG Oral Capsule 03/23/2024 Provider: VONDA CEJA MD Diagnosis: Last Documented On 4 8:50AM By Miguel Chiu ; [facility] Promethazine-DM 6.25-15 MG/5 ML Oral Syrup 03/19/2024 Provider: Therese falcon APRN Diagnosis: Last Documented On 4 8:50AM By Miguel Chiu ; [facility] Fluconazole 150 MG Oral Tablet 03/16/2024 Provider: Diagnosis: Last Documented On 4 8:50AM By Miguel Chiu ; [facility] Cefdinir 300 MG Oral Capsule 03/15/2024 Provider: Therese Gomes APRN Diagnosis: Last Documented On 4 8:50AM By Miguel Chiu ; [facility] Lovastatin 40 MG Oral Tablet 03/04/2024 Provider: VONDA CEJA MD Diagnosis: Last Documented On 4 8:50AM By Miguel Chiu ; [facility] Acyclovir 5% External Ointment 01/23/2024 Provider: Therese Gomes APRN Diagnosis: Last Documented On 4 8:50AM By Miguel Chiu ; [facility] Mupirocin 2% External Ointment 01/23/2024 Provider: Therese Gomes APRN Diagnosis: Last Documented On 4 8:50AM By Miguel Chiu ; [facility] Amoxicillin-Pot Clavulanate 875-125 MG Oral Tablet 01/23/2024 Provider: Therese falcon APRN Diagnosis: Last Documented On 4 8:50AM By Miguel Chiu ; [facility] Ozempic (0.25 or 0.5 MG/DOSE ) 2 MG/1.5ML Subcutaneous Solution Pen-injector 11/29/2023 Provider: Diagnosis: Last Documented On 4 10:45AM By Natasha Figueredo ; [facility] Alpha Lipoic Acid 200 MG Oral Capsule 07/13/2023 Pro vider: KATHRYN MARISCAL MD Diagnosis: Last Documented On 3 10:03AM By Garth Cramer ; [facility] Rheumate Oral Capsule 07/13/2023 Provider: KATHRYN ARMENTA MD Diagnosis: Last Documented On 3 10:03AM By Garth Cramer ; [facility] metFORMIN HCl ER 500 MG Oral Tablet Extended Rel ease 24 Hour 07/11/2023 Provider: Diagnosis: Last Documented On 3 10:03AM By Garth Cramer ; [facility] DULoxetine HCl 60 MG Oral Ca psule Delayed Release Particles 07/03/2023 Provider: JUAN DAVID COTO MD Diagnosis: Last Documented On 3 10:03AM By Garth Cramer ; [facility] Gabapentin 400 MG Oral Capsule 07/03/2023 Provider: JUAN DAVID COTO MD Diagnosis: Last Documented On 3 10:03AM By Garth Cramer ; [facility] Medications Administered Includes: Administered Medications from [...] Diagnosis Performing Provider Service Location Service Date Neuroplasty/Transp osition ulnar nerve at elbow (RIGHT) 13867 Lesion of ulnar nerve, right upper limb Tj Carrasco MD [facility] Surgical Division 04/11/2024 Last Documented On 4 6:15AM [facility] (RIGHT HAND, THIRD DIGIT) 61683 Trigger finger, right middle finger Tj Carrasco MD [facility] Surgical Division 04/11/2024 Last Documented On 4 6:15AM ; [facility] Medical History Includes: Medical History addressed [...] Active Last Documented On 4 10:07AM ; [facility] Lipitor Allergy 05/20/2019 Active Last Documented On 4 10:07AM ; [facility] Darvocet A500 Allergy 07/16/2012 Activ e Last Documented On 4 10:07AM ; [facility] Crestor Allergy 05/20/2019 Active Last Documented On 4 10:07AM ; [facility] Encounters Encounter Provider Location Date Check-In Time Check-Out Time Diagnosis [facility] Outpatient Surgery Suites Tj Carrasco MD Surgery 4 8:36AM 11:59PM Insurance Includes: Active Insurance Policies Plan Name Member ID Group # Subscriber Relationship Effect ania Dates 1 - [employer] [place] Medicare [id number] Mariana Villaseñor Self Clinical Notes Includes: Clinical Notes from this encounter No Clinical Notes Recorded
--- OUTSIDE RECORDS SUMMARY | 2024-06-02 19:00 | XMS_ITS | Patient Health Record ---
Author Name Unknown Organization [facility] Address [address] [place] [address] Care Team Providers Care Rn Travel Name Role Phone Osmin Luna Primary Care Provider UnavailVance Liu Unavailable [phone] Velma Galicia Unavailable Unavailable YONI CHEUNG, Dr. [facility] Unavailable [phone] EMMA PATTERSON Unavailable [phone] ALLERGIES Allergen (clinical drug ingredient) Drug/Non Drug Allergy documented on EMR Reaction Allergy Type Onset Date Status Darvocet-N 50 Unknown Drug Allergy Act ania clopidogrel Clopidogrel Unknown Drug Allergy Act ania rosuvastatin Rosuvastatin Unknown Drug Allergy A ctive Sutures Unknown Allergy Active RESULTS Component Value Reference Range Notes Ambjosefa Abbrev RP10 Default (N ot yet reviewed by provider) Interpretation: Performing Lab:[facility], [address] [facility], Phone - [phone], Director - [facility] Notes/Report: Fermin Durbinv RP10 Default A hand-written panel/profile was received from your office. In accordance with the [facility] Ambiguous Test Code Policy dated May 2003, we have completed your order by using the closest currently or formerly recognized AMA panel. We have assigned Renal Panel (10), Test Code #609202 to this request. If this is not the testing you wished to receive on this specimen, please contact the [facility] Client Inquiry/Technical Services Department to clarify the test order. We appreciate your business. Uric Acid, Serum Reviewed date:01/23/2024 11:38:14 AM Interpretation: Performing Lab:[facility], [address] [facility], Phone - [phone], Director [facility] Notes/Report: Uric Acid 4.1 3.0-7.2 mg/dL Therapeutic ta rget for gout patients: <6.0 Prot+CreatU (Random) Reviewed date:01/23/2024 11:39:50 AM Interpretation: Performing Lab:[facility], Phone - [phone], Director - [facility] Notes/Report: Creatinine, Urine 114.4 Not Estab. mg/dL Protein,Total,Urine 11.0 Not Estab. mg/dL Protein/Creat Ratio 96 0-200 mg/g creat Urinalysis, Complete Reviewed date:01/23/2024 11:40:04 AM Interpretation: Performing Lab:[facility], [address] [place] [address], Phone - [phone], Director - [facility] Notes/Report: Specific [place] 1.018 1.005-1.030 pH 5.5 5.0-7.5 Urine-Color Yellow [...] D Reviewed date:01/23/2024 11:38:27 AM Interpretation: Performing Lab:[facility], [address] [place] [address], Phone - [phone], Director - [facility] Notes/Report: Vitamin D, 25-Hydroxy 29.8 30.0-100.0 ng/mL Vitamin D deficiency has been defined by the [place] of Medicine and an Endocrine Society practice guideline as a level of serum 25-OH vitamin D less than 20 ng/mL (1,2). The Endocrine Society went on to further define vitamin D insufficiency as a level between 21 and 29 ng/mL (2). 1. IOM ([place] of Medicine). 2010. Dietary reference intakes for calcium and D. [place]: The National Academies Press. 2. Carie FLORES, Emile [place], Elisabeth HERNANDEZ, et al. Evaluation, treatment, and prevention of vitamin D deficiency: an Endocrine Society clinical practice guideline. JCEM. 2010; 96(2):1911-30. .Renal Function Panel Reviewed date:01/23/2024 11:38:02 AM Interpretation: Performing Lab:[facility], [address] [facility], Phone - [phone], Director - [facility] Notes/Report: Glucose 79 70-99 mg/dL BUN 13 8-27 mg/dL Creatinine 0.99 0.57-1.00 mg/dL eGFR 64 >59 mL/min/1.73 BUN/Creatinine Ratio 13 12-28 Sodium 144 134-144 mmol/L Potassium 3.8 3.5-5.2 mmol/L Chloride 105 96-106 mmol/L Carbon Dioxide, Total 24 20-29 mmol/L Calcium 9.6 8.7-10.3 mg/dL Phosphorus 4.2 3.0-4.3 mg/dL Albumin 4.5 3.9-4.9 g/dL CBC/Diff Ambiguous Default Reviewed date:01/23/2024 11:38:50 AM Interpretation: Performing Lab:[facility], [address] [facility], Phone - [phone], Director - [facility] Notes/Report: WBC 8.6 3.4-10.8 x10E3/uL RBC 4.46 [...] from your office. In accordance with the [facility] Ambiguous Test Code Policy dated May 2003, we have assigned CBC with Differential/Platelet, Test Code #969204 to this request. If this is not the testing you wished to receive on this specimen, please contact the [facility] Client Inquiry/ Technical Services Department to clarify [...] Notes Problem Fibromyalgia (M79.7) Active confirmed Fibromyalgia (865700589) she was advised by her professor of chemical engineering not to take any nonsteroidal anti-inflammato shannon. Problem Hyperlipidemia (E78.5) Active confirmed Hyperlipidemia (17834870) Problem HTN (hypertension) (I10) Active confirmed Hypertension (42211825) blood pressure is well controlled at home. Problem Hypothyroidism (E03.9) Active confirmed Hypothyroidism (27906849) Problem DM2 (diabetes mellitus, type 2) (E11.9) Active confirmed Diabetes mellitus type 2 (disorder) (60837457) management as per endocrinology and primary care. 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 and [...] 01/23/2024 Encounters Encounter Location Date Provider Diagnosis [facility] [address] [place] [address] 01/09/2024 EMMA LUISAToo [facility] [address] [place] [address] 10/09/2023 KENNY VALLEJO CHRONIC KIDNEY DISEASE STAGE 3A N18.31 ; DM2 (diabetes mellitus, type 2) E11.9 ; HTN (hypertension) I10 and Fibromyalgia M79.7 [facility] [address] [place] [address] 01/23/2024 EMMA LEONARDO DM2 (diabetes mellitus, type [...] - M79.7) she was advised by her professor of chemical engineering not to take any nonsteroidal anti-inflammatories. 01/23/2024 Fibromyalgia (ICD-10 - M79.7) she was advised by her professor of chemical engineering not to take any nonsteroidal anti-inflammatories. 01/23/2024 [...] PATTERSON, 07/29/2024 11:30:00 AM, [address] [facility] [address], [place], [address], Insurance Providers Payer Name Payer Address Payer Phone Subscriber Number Group Number Insured Name Patient Relationship to Insured Coverage Start Date Coverage End Date [employer] [address] [place] [address] [phone] [id number] Mariana Villaseñor Self - patient is the insured MEDICAL (GENERAL) HISTORY Medical History History ICD Code Hyperlipidemia E78.5 Helicobacter positive gastritis K29.70 Hypertension I10 Hypothyroidism E03.9 Diabetes E11.9 Surgical History Surgery Date(Month/Year) back surgery carpal tunnel release 2 c-sections bilateral foot surgery CABG
[2024-06-02 19:01] LABS: Chloride 106 mmol/L (98-107)
[2024-06-02 19:02] LABS: Sodium 138 mmol/L (136-145)
--- NOTE | 2024-06-02 19:02 | ECG_ITS ---
APPROVED REPORT Exam: Resting ECG HR:88 bpm ECG Measurements Heart Rate 88 AXES WA 129 P 67 QRSd 75 QRS 29 QT 345 T 78 QTc 391 Conclusion SINUS RHYTHM LOW QRS VOLTAGE IN PRECORDIAL LEADS [QRS DEFLECTION < 1.0 mV IN CHEST LEADS] PATTERN CONSISTENT WITH PULMONARY DISEASE ABNORMAL ECG Electronically signed by : GEO DICKSON, 06/02/2024 23:07:21
[2024-06-02 19:04] LABS: Blood Urea Nitrogen 13 mg/dl (7-17); Estimated Glomerular Filt Rate 50 ml/min (>60); GFR (African American) 60 ML/MIN (>60)
[2024-06-02 19:05] LABS: Alanine Aminotransferase 18 U/L (12-78); Albumin/Globulin Ratio 1.5 (1.1-1.8); Alkaline Phosphatase 72 U/L (38-126); Aspartate Amino Transferase 22 U/L (14-36); Bilirubin,Total 0.2 mg/dl (0.2-1.3); Carbon Dioxide 26 mmol/L (22.0-30.0); Globulin 2.7 g/dL (1.3-3.2); Glucose 264 mg/dl (74-100); Total Protein,Serum 6.7 g/dl (6.3-8.2)
[2024-06-02 19:19] LABS: Troponin I < 0.01 ng/ml (0.00-0.034)
[2024-06-02] MEDS: IOPAMIDOL-370 (76%);100ML BOTTLE 100 ML IV (19:24)
[2024-06-02] MEDS: 0.9 % SODIUM CHLORIDE 50 ML VIAL IV (19:24)
[2024-06-02] MEDS: SODIUM CHLORIDE 0.9% 10ML SYR (RAD ONLY) 10 ML IV (19:25)
[2024-06-02] MEDS: ASPIRIN 81MG CHEWABLE TABLET 324 MG PO (19:56)
[2024-06-02] MEDS: ACETAMINOPHEN 1,000MG/100ML VIAL 1000 MG IV (20:09)
[2024-06-02 21:58] LABS: Troponin I < 0.01 ng/ml (0.00-0.034)
== END 2024-06-02 22:20 | disposition home or self-care (01) ==
PROVIDERS: Emergency Provider Emergency Medicine
DX: R07.9 Chest pain, unspecified (principal); E11.65 Type 2 diabetes mellitus with hyperglycemia; Z79.84 Long term (current) use of oral hypoglycemic drugs; K21.9 Gastro-esophageal reflux disease without esophagitis; E03.9 Hypothyroidism, unspecified; E78.5 Hyperlipidemia, unspecified; I10 Essential (primary) hypertension; Z95.1 Presence of aortocoronary bypass graft
CPT/HCPCS: 71275; 80053; 84484; 85025; 93005; 96374; 96375; 99285; J0131; J2270; Q9967

== ENCOUNTER 2024-06-03 12:32 | Outpatient (CLI) | payer MEDICARE, SELFPAY ==
--- OUTSIDE RECORDS SUMMARY | 2024-06-03 12:36 | XMS_ITS ---
Author Name Unknown Address [address] [place] [address] Phone Organization [facility], [facility] Address [address] [place] [place] [address] Phone Care Team Providers Care Apprentice/Lineman Name Role Phone MARCIAL CHEUNG VONDA Unavailable [phone] Danilo CHEUNG, Tj Early Unavailable [phone] Reason for Referral Date Encounter Description Provider [...] Active Last Documented On 3 1:51PM ; [facility] Neck Pain 07/07/2021 Neo Sandhu MD Active Last Documented On 1 8:43AM ; [facility] Lower Back Pain 07/07/2021 Neo Sandhu MD A ctive Last Documented On 1 8:43AM ; [facility] Joint Pain, Localized in Both Shoulders 07/21/2020 Haider Madera MD Active Last Documented On 0 3:28PM ; [facility] Joint Pain Fingers of Both Hands 05/20/2019 Isaac Carrasco MD Active Last Documented On 9 8:23AM ; [facility] Plan of Treatment Pending Tests Order Diagnosis Results Due Ordering P rovider Radiology - MRI MRI Shoulder 10/11/21 Haider Madera MD Last Documented On 1 2:06PM ; [facility] Instructions to patient Lose weight Last Documented On 4 10:08AM ; [facility] Lose weight Last Documented On 4 8:50AM ; [facility] Lose weight Last Documented On 4 1:16PM ; [facility] Lose weight Last Documented On 4 1:27PM ; [facility] Lose weight Last Documented On [...] 10:07AM By Miguel Chiu ; [facility] Omeprazole 40 MG Oral Capsule Delayed Release 04/23/20 Provider: Diagnosis: Last Documented On 4 10:07AM By Miguel Chiu ; [facility] Losartan Potassium 100 MG Or al Tablet 04/18/2024 Provider: Therese falcon APRN Diagnosis: Last Documented On 4 8:50AM By Miguel Chiu ; [facility] Glimepiride 4 MG Oral Tablet 04/18/2024 Provider: Diagnosis: Last Documented On 4 8:50AM By Miguel Chiu ; [facility] Neurontin 300 MG Oral Capsule 04/17/2024 Provider: Tj Carrasco MD Diagnosis: 1 every bedtime Last Documented On 4 2:04PM By Dr. Carrasco ; [facility] HYDROcodone-Acetaminophen 7. 5-325 MG Oral Tablet 04/09/2024 Provider: Tj Carrasco MD Diagnosis: 1 q 6 hours prn pain Last Documented On 4 9:24AM By Dr. Carrasco ; [facility] Promethazine-DM 6.25-15 MG/5 ML Oral Syrup 04/02/2024 Provider: Therese falcon APRN Diagnosis: Last Documented On 4 8:50AM By Miguel Chiu ; [facility] Mounjaro 2.5 MG/0.5ML Subcutaneous Solution Pen-inject or 03/31/2024 Provider: Diagnosis: Last Documented On 4 8:50AM By Miguel Chiu ; [facility] Doxycycline Hyclate 100 MG Oral Capsule 03/23/2024 Mazin rivera: VONDA CEJA MD Diagnosis: Last Documented On 4 8:50AM By Miguel Chiu ; [facility] Benzonatate 200 MG Oral Capsule 03/23/2024 Provider: VONDA CEJA MD Diagnosis: Last Documented On 4 8:50AM By Miguel Chiu ; [facility] Promethazine-DM 6.25-15 MG/5 ML Oral Syrup 03/19/2024 Provider: Therese falcon RN NEONATAL ICU Diagnosis: Last Documented On 4 8:50AM By Miguel Chiu ; [facility] Fluconazole 150 MG Oral Tablet 03/16/2024 Provider: Diagnosis: Last Documented On 4 8:50AM By Miguel Chiu ; [facility] Cefdinir 300 MG Oral Capsule 03/15/2024 Provider: Therese Gomes APRN Diagnosis: Last Documented On 4 8:50AM By Miguel hCiu ; [facility] Lovastatin 40 MG Oral Tablet 03/04/2024 Provider: VONDA CEJA MD Diagnosis: Last Documented On 4 8:50AM By Miguel Chiu ; [facility] Acyclovir 5% External Ointment 01/23/2024 Provider: Therese Gomes APRN Diagnosis: Last Documented On 4 8:50AM By Miguel Chiu ; [facility] Mupirocin 2% External Ointment 01/23/2024 Provider: Therese Gomes APRN Diagnosis: Last Documented On 4 8:50AM By Miguel Chiu ; [facility] Amoxicillin-Pot Clavulanate 875-125 MG Oral Tablet 01/23/2024 Provider: Therese falcon APRN Diagnosis: Last Documented On 4 8:50AM By Miguel Chiu ; [facility], [facility] Ozempic (0.25 or 0.5 MG/DOSE ) 2 MG/1.5ML Subcutaneous Solution Pen-injector 11/29/2023 Provider: Diagnosis: Last Documented On 4 10:45AM By Natasha Figueredo ; [facility], [facility] Alpha Lipoic Acid 200 MG Oral Capsule 07/13/2023 Pro vider: KATHRYN MARISCAL MD Diagnosis: Last Documented On 3 10:03AM By Garth Cramer ; [facility] Rheumate Oral Capsule 07/13/2023 Provider: KATHRYN ARMENTA MD Diagnosis: Last Documented On 3 10:03AM By Garth Cramer ; [facility] metFORMIN HCl ER 500 MG Oral Tablet Extended Rel ease 24 Hour 07/11/2023 Provider: Diagnosis: Last Documented On 3 10:03AM By Garth Cramer ; [facility] DULoxetine HCl 60 MG Oral Ca psule Delayed Release Particles 07/03/2023 Provider: VELMA GALICIA MD Diagnosis: Last Documented On 3 10:03AM By Garth Cramer ; [facility] Gabapentin 400 MG Oral Capsule 07/03/2023 Provider: VELMA GALICIA MD Diagnosis: Last Documented On 3 10:03AM By Garth Cramer ; [facility] Past Medications on file Ativan 1 MG Oral Tablet 07/18/2023 - 07/19/2023 Provid er: Art Vizcarra MD Diagnosis: take as directed; Take 1 tab let 1 hour before MRI; May take an additional tablet if needed. Last Documented On 3 3:09PM By Dr. Vizcarra ; [facility], [facility] Levothyroxine Sodium 75 MCG Oral Tablet 10/18/2021 - 0 07/19/2023 Provider: Diagnosis: Last Documented On 3 10:03AM By Garth Cramer ; [facility] Losartan Potassium 50 MG Oral Tablet 10/18/2021 - 07/19/2023 Provider: Therese peng APRN Diagnosis: Last Documented On 3 10:03AM By Garth Cramer ; [facility] Synthroid 75 MCG Oral Tablet 10/18/2021 - 07/19/2023 Mazin rivera: IONA GALEANO MD Diagnosis: Last Documented On 3 10:03AM By Garth Cramer ; [facility] Losartan Potassium 50 MG Oral Tablet 09/27/2021 - 06/22 Provider: Diagnosis: Last Documented On 3 10:04AM By Garth Cramer ; [facility] HYDROcodone-Acetaminophen 7. 5-325 MG Oral Tablet 06/24/2021 - 10/18/2021 Provider: Tj Carrasco MD Diagnosis: 1 q 6 hours prn pain Last Documented On 1 11:04AM By Therese Swan ; [facility] DULoxetine HCl 30 MG Oral Capsule Delayed Release Particles 11/26/2020 - 07/19/2023 Provider: DAVIS VAN ON CHEMICAL TESTER Diagnosis: Last Documented On 3 10:04AM By Garth Cramer ; [facility] Nitrostat 0.4 MG Sublingual Tablet Sublingual 07/21/20 20 - 07/19/2023 Provider: Diagnosis: Last Documented On 3 10:04AM By Garth Cramer ; [facility] Lovastatin 40 MG Oral Tablet 07/21/2020 - 10/18/2021 Mazin rivera: VONDA CEJA MD Diagnosis: Last Documented On 1 11:19AM By Carmen Fleming ; [facility] CVS D3 10 MCG (400 UNIT) Oral Capsule 07/21/2020 - Provider: Diagnosis: Last Documented On 3 10:04AM By Garth Cramer ; [facility] Levothyroxine Sodium 88 MCG Oral Tablet 07/21/2020 - 1 12/18/2020 Provider: Diagnosis: Last Documented On 1 11:19AM By Carmen Fleming ; [facility] Euthyrox 88 MCG Oral Tablet 07/15/2020 - 07/19/2023 Pr ovider: Alec Villa Diagnosis: Last Documented On 3 10:04AM By Garth Cramer ; [facility] Gabapentin 400 MG Oral Capsule 07/08/2020 - 07/19/2023 Provider: VELMA GALICIA MD Diagnosis: Last Documented On 3 10:04AM By Garth Cramer ; [facility] Lovastatin 40 MG Oral Tablet 07/07/2020 - 07/19/2023 P nicole: Alec Villa Diagnosis: Last Documented On 3 10:04AM By Garth Cramer ; [facility] Methocarbamol 750 MG Oral Tablet 07/06/2020 - 07/19/20 23 Provider: VELMA GALICIA MD Diagnosis: Last Documented On 3 10:04AM By Garth Cramer ; [facility] Ezetimibe 10 MG Oral Tablet 06/08/2020 - 07/19/2023 Pr ovider: SIMRAN DEL CASTILLO MD Diagnosis: Last Documented On 3 10:04AM By Garth Cramer ; [facility] Lisinopril 10 MG Oral Tablet 05/22/2020 - 10/18/2021 Mazin rivera: IONA GALEANO MD Diagnosis: Last Documented On 1 11:20AM By Carmen Fleming ; [facility] metFORMIN HCl 500 MG Oral Tablet 05/08/2020 - 07/19/20 23 Provider: IONA GALEANO MD Diagnosis: Last Documented On 3 10:03AM By Garth Cramer ; [facility] Ibuprofen 400 MG OR TABS 07/13/2019 - 10/18/2021 Provi arabella: Tj Carrasco MD Diagnosis: for post op pain Last Documented On 1 11:04AM By Therese Swan ; [facility], [facility] Diclofenac Sodium 1% Transdermal Gel 04/25/2019 - 07/21/2020 Provider: Endy Soni DPM Diagnosis: Last Documented On 0 3:26PM By Sophiamiranda Hummel-Jasper ; [facility] Nitroglycerin 0.4MG Sublingu al Tablet Sublingual 03/28/2019 - 05/20/2019 Provider: SIMRAN Greenfield Diagnosis: Last Documented On 9 8:39AM By Sophiamiranda Hummel-Jasper ; [facility] Methocarbamol 750MG Oral Tablet 03/25/2019 - 0 Provider: VELMA GALICIA MD Diagnosis: Last Documented On 0 3:27PM By Sophia Hummel-Jasper ; [facility] Gabapentin 400MG Oral Capsule 03/21/2019 - 07/21/2020 Provider: VELMA GALICIA MD Diagnosis: Last Documented On 0 3:26PM By Sophiamiranda Hummel-Jasper ; [facility] Lovastatin 40MG Oral Tablet 03/18/2019 - 07/21/2020 Pr ovider: VONDA CEJA MD Diagnosis: Last Documented On 0 3:27PM By Sophiamiranda Hummel-Jasper ; [facility] Lisinopril 10MG Oral Tablet 03/18/2019 - 07/21/2020 Pr ovider: IONA GALEANO MD Diagnosis: Last Documented On 0 3:26PM By Sophiamiranda Hummel-Jasper ; [facility], [facility] Levothyroxine Sodium 88MCG Oral Tablet 03/05/2019 - Provider: Diagnosis: Last Documented On 0 3:27PM By Sophia Dennison ; [facility], [facility] Lansoprazole 30MG Oral Capsule Delayed Release 0 02/24/2019 - 07/21/2020 Provider: Diagnosis: Last Documented On 0 3:26PM By Sophia Dennison ; [facility], [facility] metFORMIN HCl 500MG Oral Tablet 02/24/2019 - 0 Provider: IONA GALEANO MD Diagnosis: Last Documented On 0 3:27PM By Sophia Dennison ; [facility], [facility] Atenolol 25MG Oral Tablet 02/24/2019 - 07/21/2020 Prov ider: SIMRAN DEL CASTILLO MD Diagnosis: Last Documented On 0 3:26PM By Sophia Dennison ; [facility] Jardiance 25MG Oral Tablet 12/24/2018 - 05/20/2019 Pro vider: IONA GALEANO MD Diagnosis: Last Documented On 9 8:40AM By Sophia Dennison ; [facility], [facility] Esau Aspirin 325 MG OR TABS 08/27/2012 - 05/20/2019 Mazin rivera: Diagnosis: Last Documented On 9 8:25AM By Sophia Dennison ; [facility] GNP Vitamin E 200 UNIT OR CAPS 08/27/2012 - 05/20/2019 Provider: Diagnosis: Last Documented On 9 8:25AM By Sophia Dennison ; [facility] Pravastatin Sodium 40 MG OR TABS 08/27/2012 - 05/20/20 19 Provider: Diagnosis: Last Documented On 9 8:25AM By Sophia Dennison ; [facility] Zetia 10 MG OR TABS 08/27/2012 - 05/20/2019 Provider: Diagnosis: Last Documented On 9 8:25AM By Sophia Dennison ; [facility]S Flaxseed Oil 1000 MG OR CAPS 08/27/2012 - 05/20/20 19 Provider: Diagnosis: Last Documented On 9 8:25AM By Sophia Dennison ; [facility]S Vitamin C 500 MG OR TABS 08/27/2012 - 05/20/2019 Mazin rivera: Diagnosis: Last Documented On 9 8:25AM By Sophia Dennison ; [facility] glyBURIDE 5 MG OR TABS 08/27/2012 - 05/20/2019 Provide r: Diagnosis: Last Documented On 9 8:25AM By Sophia Dennison ; [facility], [facility] Levothyroxine Sodium 50 MCG OR TABS 08/27/2012 - 05/20 Provider: Diagnosis: Last Documented On 9 8:25AM By Sophia Dennison ; [facility], [facility] Fish Oil 1200 MG OR CAPS 08/27/2012 - 05/20/2019 Provi arabella: Diagnosis: Last Documented On 9 8:25AM By Sophia Dennison ; [facility] Lisinopril 20 MG OR TABS 08/27/2012 - 05/20/2019 Provi arabella: Diagnosis: Last Documented On 9 8:25AM By Sophia Dennison ; [facility], [facility] Medications Administered Includes: Administered Medications in patient's chart No Administered Medications Recorded Vital Signs Includes: Vital Signs from 06/03/2023 through 06/03/2024 Vital Name 05/08/2024 10:08A 04/24/2024 08:50A 04/17/2024 01:16P 01/31/2024 01:28P 11/29/2023 10:45A Height (in) 64 64 64 64 64 Weight (lb) 165 165 165 165 165 Body Mass Index 28.3 28.3 28.3 28.3 28.3 Body Surface Area 1.8 1.8 1.8 1.8 1.8 Note: gallo [facility] Last Documented: On 05/08/2024 10:08AM ; [facility] On 04/24/2024 8:51AM ; [facility] On 04/17/2024 1:16PM ; [facility] On 01/31/2024 1:28PM ; [facility] On 11/29/2023 10:45AM ; [facility] Vital Name 07/25/2023 10:49A 07/19/2023 10:15A 07/10 01:51P Height (in) 64 64 64 Weight (lb) 185 183 185 Body Mass Index 31.8 31.4 31.8 Body Surface Area 1.9 1.9 1.9 Note: mg dp Last Documented: On 07/25/2023 10:49A M ; [facility] On 07/19/2023 10:15AM ; [facility] On 07/10/2023 2:02PM ; [facility] Results Includes: Results from 06/03/2023 through 06/03/2024 No Results Recorded For Specified Dates History [...] 07/21/2020 Last Documented On 0 4:01PM ; [facility] Smoking status : Never smoker 07/21/2020 Last Documented On 0 4:01PM ; [facility] Procedures and Surgical History Includes: Procedures from 06/03/2023 through 06/03/2024 Procedures Code Diagnosis Performing Provider Service Location Service Date THERAPEUTIC ACTIVITIES (Occupational therapy) 41691 Trigger finger, left middle finger Velma Green OT [facility] 05/27/2024 Last Documented On 4 12:39PM ; [facility] MANUAL THERAPY (Occupational therapy) 35150 Trigger finger, left middle finger Velma Green OT [facility] 05/27/2024 Last Documented On 4 12:39PM ; [facility] NEUROMUSCULAR REEDUCATION (Occupational therapy) 90975 Trigger finger, left middle finger Velma Green OT [facility] 05/27/2024 Last Documented On 4 12:39PM ; [facility] THERAPEUTIC EXERCISES (Occupational therapy) 91835 Trigger finger, left middle finger Velma Green OT [facility] 05/27/2024 Last Documented On 4 12:39PM ; [facility] THERAPEUTIC ACTIVITIES (Occupational therapy) 50212 Trigger finger, left middle finger Velma Green OT [facility] 05/22/2024 Last Documented On 4 11:47AM ; [facility] MANUAL THERAPY (Occupational therapy) 62772 Trigger finger, left middle finger Velma Green OT [facility] 05/22/2024 Last Documented On 4 11:47AM ; [facility] NEUROMUSCULAR REEDUCATION (Occupational therapy) 53890 Trigger finger, left middle finger Velma Green OT [facility] 05/22/2024 Last Documented On 4 11:47AM ; [facility] THERAPEUTIC EXERCISES (Occupational therapy) 24747 Trigger finger, left middle finger Velma Green OT [facility] 05/22/2024 Last Documented On 4 11:47AM ; [facility] THERAPEUTIC ACTIVITIES (Occupational therapy) 36868 Trigger finger, left middle finger Velma Green OT [facility] 05/13/2024 Last Documented On 4 11:53AM ; [facility] NEUROMUSCULAR REEDUCATION (Occupational therapy) 79163 Trigger finger, left middle finger Velma Green OT [facility] 05/13/2024 Last Documented On 4 11:53AM ; [facility] THERAPEUTIC EXERCISES (Occupational therapy) 83658 Trigger finger, left middle finger Velma Green OT [facility] 05/13/2024 Last Documented On 4 11:53AM ; [facility] THER INJECTION, CARP TUNNEL (Unrelated Procedure, RIGHT) Carpal tunnel syndrome, right upper limb Tj Carrasco MD [facility] 05/08/2024 Last Documented On 4 10:59AM ; [facility] NEUROMUSCULAR REEDUCATION (Occupational therapy) 71058 Trigger finger, right middle finger, Lesion of ulnar nerve, right upper limb Mack Angle OT [facility] 05/08/2024 Last Documented On 4 8:11AM ; [facility] Triamcinolone/Kenalog, 10mg per cc [id number] Trigger finger, left middle finger Tj Carrasco MD [facility] 05/08/2024 Last Documented On 4 10:59AM ; [facility] INJ TENDON SHEATH/LIGAMENT (Distinct procedure, LEFT) 21469 Trigger finger, left middle finger Tj Carrasco MD [facility] 05/08/2024 Last Documented On 4 10:59AM ; [facility] MANUAL THERAPY (Occupational therapy) 41989 Trigger finger, right middle finger, Lesion of ulnar nerve, right upper limb Mack Angle OT [facility] 05/08/2024 Last Documented On 4 8:11AM ; [facility] OT Eval - Mod Complexity (Occupational therapy) 95644 Trigger finger, right middle finger, Lesion of ulnar nerve, right upper limb Arlet Strauss OT [facility] 04/24/2024 Last Documented On 4 2:33PM ; [facility] SELF CARE MNGMENT TRAINING (Occupational therapy) 63140 Trigger finger, right middle finger, Lesion of ulnar nerve, right upper limb Arlet Strauss OT [facility] 04/24/2024 Last Documented On 4 2:33PM ; [facility] NEUROMUSCULAR REEDUCATION (Occupational therapy) 18870 Trigger finger, right middle finger, Lesion of ulnar nerve, right upper limb Arlet Strauss OT [facility] 04/24/2024 Last Documented On 4 2:33PM ; [facility] APPLY LONG ARM SPLINT (Related Proc Same Dr, RIGHT) 41166 Trigger finger, right middle finger Tj Carrasco MD [facility] 04/17/2024 Last Documented On 4 9:14AM ; [facility] Neuroplasty/Transposition ul getachew nerve at elbow (RIGHT) 69427 Lesion of ulnar nerve, right upper limb Tj Carrasco MD [facility] Surgical Division 04/11/2024 Last Documented On 4 6:15AM ; [facility] INCISE FINGER TENDON SHEATH (RIGHT HAND, THIRD DIGIT) 52822 Trigger finger, right middle finger Tj Carrasco MD [facility] Surgical Division 04/11/2024 Last Documented On 4 6:15AM ; [facility] Triamcinolone/Kenalog, 10mg per cc [id number] Trigger finger, right middle finger Tj Carrasco MD [facility] 11/29/2023 Last Documented On 4 11:19AM ; [facility] INJ TENDON SHEATH/LIGAMENT (RIGHT) 05761 Trigger finger, right middle finger Tj Carrasco MD [facility] 11/29/2023 Last Documented On 4 11:19AM ; [facility] INJ TENDON SHEATH/LIGAMENT (Distinct procedure, RIGHT HAND, THIRD DIGIT) 24937 Pain in right finger(s) Tj Carrasco MD [facility] 07/19/2023 Last Documented On 3 11:37AM ; [facility] CMC Comfort Cool Splint A4466 Unil primary osteoarth of first carpometacarp joint, l hand Tj Carrasco MD [facility] 07/19/2023 Last Documented On 3 2:39PM ; [facility] Triamcinolone/Kenalog, 10mg per cc [id number] Pain in right finger(s) Tj Carrasco MD [facility] 07/19/2023 Last Documented On 3 8:36AM ; [facility] X-RAY EXAM OF FINGER(S) 2-3 VIEWS (LEFT) 22409 Unil primary osteoarth of first carpometacarp joint, l hand Tj Carrasco MD [facility] 07/19/2023 Last Documented On 3 8:36AM ; [facility] X-RAY EXAM OF FINGER(S) 2-3 VIEWS (RIGHT) 32035 Unil primary osteoarth of first carpometacarp joint, r hand Tj Carrasco MD [facility] 07/19/2023 Last Documented On 3 8:36AM ; [facility] DRAIN/INJECT, JOINT/BURSA (Bilateral Procedure) 00741 Bilateral primary osteoarth of first carpometacarp joints Tj Carrasco MD [facility] 07/19/2023 Last Documented On 3 8:36AM ; [facility] MRI JNT OF LWR EXTRE W/O DYE (RIGHT) 85977 Pain in right knee Art Vizcarra MD [facility] 07/19/2023 Last Documented On 3 7:55AM ; [facility] X-RAY EXAM KNEE 4 OR MORE (RIGHT) 41996 Pain in right knee Art Vizcarra MD [facility] 07/10/2023 Last Documented On 3 1:21PM ; [facility] Surgical History Last Updated History of back surgery 07/21/2020 Last Documented On 0 4:01PM ; [facility] History of heart surgery 07/21/2020 Last Documented On 0 4:01PM ; [facility] Medical History Includes: Medical History in patient's chart Description Last Updated Recent immunization for flu 08/20/2020 1 Last Documented On 1 10:47AM ; [facility], [facility] Past Surgical History: 07/16 Right CTR @ [facility] ~06/29/2021 Left CTR with transposition @ [facility] 07[facility]12/2021 Last Documented On 1 4:27PM ; [facility], [facility] Past surgical history non-contributory: Foot & hand sx 07/21/2020 Last Documented On 0 4:01PM ; [facility], [facility] Arthritis 07/21/2020 Last Documented On 0 4:01PM ; [facility], [facility] Back surgery 07/21/2020 Last Documented On 0 4:01PM ; [facility], [facility] Heart surgery 07/21/2020 Last Documented On 0 4:01PM ; [facility], [facility] Hypertension 07/21/2020 Last Documented On 0 4:01PM ; [facility], [facility] No recent immunization for pneumococcal pneumonia 07/21/2020 Last Documented On 0 4:01PM ; [facility], [facility] Thyroid Disease 07/21/2020 Last Documented On 0 4:01PM ; [facility] A recent injection 07/21/2020 Last Documented On 0 4:01PM ; [facility] Arthritic joint problems 07/21/2020 Last Documented On 0 4:01PM ; [facility] History of diabetes mellitus 07/21/2020 Last Documented On 0 4:01PM ; [facility] History of heart disease 07/21/2020 Last Documented On 0 4:01PM ; [facility] Intermittent hypertension 07/21/2020 Last Documented On 0 4:01PM ; [facility] Thyroid disease 07/21/2020 Last Documented On 0 4:01PM ; [facility], [facility] Family History Includes: Family History in patient's chart Description Last Updated Family history of cancer 08/25/2021 Last Documented On 1 10:47AM ; [facility] Diabetes mellitus 08/23/2021 Last Documented On 1 10:47AM ; [facility] Family history of heart disease 08/23/20 21 Last Documented On 1 10:47AM ; [facility] Fraternal history of diabetes mellitus 0 07/21/2020 Last Documented On 0 4:01PM ; [facility] Fraternal history of family history of h eart disease 07/21/2020 Last Documented On 0 4:01PM ; [facility] Maternal history of family history of ca ncer 07/21/2020 Last Documented On 0 4:01PM ; [facility] Review of Systems Review of Systems [...] Patient Last Documented On 0 9:03AM ; [facility] Influenza 2 08/20/2021 Complete (Reported) Patient Last Documented On 1 11:19AM ; [facility] PCV (Pneumovax 23) 1 04/07/2021 Complete (Refused - Patient objection) [facility] Last Documented On 1 11:22AM ; [facility] Td 1 04/07/2021 Complete (Refused - Patient objection) [facility] Last Documented On 1 11:22AM ; [facility] Allergies Includes: Active, inactive, and resolved Allergies Substance Type Reaction Onset Date Resolved Date Statu s plavix Allergy 07/16/2012 Active Last Documented On 4 10:07AM ; [facility] Lipitor Allergy 05/20/2019 Active Last Documented On 4 10:07AM ; [facility] Darvocet A500 Allergy 07/16/2012 Activ e Last Documented On 4 10:07AM ; [facility] Crestor Allergy 05/20/2019 Active Last Documented On 10:07AM ; [facility] Encounters Includes: Encounters from 06/03/2023 through 06/03/2024 Encounter Provider Location Date Check-In Time Check-Out Time Diagnosis Post Op Tj Carrasco [facility] 024 10:02AM 10:22AM Overweight Post Op Tj Carrasco MD [facility] 024 8:40AM 9:17AM Overweight Post Op Tj Carrasco MD [facility] 024 1:13PM 2:06PM Overweight [facility] Tj Carrasco MD Surgery 024 8:36AM 01/31/2024 11:59PM [Patient Encounter] Tj Carrasco MD 024 01/31/2024 9:17AM 01/31/2024 11:59PM Follow Up Tj Carrasco MD [facility] 024 1:24PM 1:45PM Follow Up Tj Carrasco MD [facility] 024 10:36AM 11:02AM Follow Up Art Vizcarra MD [facility] 023 10:10AM 11:38AM MRI [facility] 023 2:04PM 2:19PM NEW PROBLEM/EST PT Tj Carrasco MD [facility] 023 10:00AM 10:59AM Overweight BRACE FITTING Tj Carrasco MD [facility] 023 07/25/2023 9:56AM 07/25/2023 11:59PM Physician Specified Art Vizcarra MD [facility] 023 1:45PM 3:40PM Insurance Includes: Active Insurance Policies Plan Name Member ID Group # Subscriber Relationship Effect ania Dates 1 - BC[place] ([place]) Medicare [id number] Mariana Roach Clinical Notes Includes: Signed Clinical Notes starting from 11/03/2022 * Progress note Date Encounter Last Documented by 05/08/2024 Post Op Last documented on 05/12/2024; 9:27 PM, Tj Carrasco MD; [facility], [facility] Active Problems & Conditions - [...] Past Surgical History: 07/16/2019 Right CTR @ [facility] 06/29/2021 Left CTR with transposition @ [facility] - Back surgery - Back surgery Social [...] Care Team - VONDA CEJA MD - CREDIT OPERATIONS PROCESSOR Notes This dictation was done with voice recognition software and may contain errors and omissions. transcribed by Remy Mccormick * Progress note Date Encounter Last Documented by 04/24/2024 Post Op Last documented on 04/29/2024; 3:29 PM, Tj Carrasco MD; [facility], [facility] Active Problems & Conditions - [...] Past Surgical History: 07/16/2019 Right CTR @ [facility] 06/29/2021 Left CTR with transposition @ [facility] - Back surgery - Back surgery Social [...] Care Team - VONDA CEJA MD - CREDIT OPERATIONS PROCESSOR Notes This dictation was done with voice recognition software and may contain errors and omissions. transcribed by Remy Mccormick * Progress note Date Encounter Last Documented by 04/17/2024 Post Op Last documented on 04/21/2024; 9:54 PM, Tj Carrasco MD; [facility], [facility] Active Problems & Conditions - [...] Past Surgical History: 07/16/2019 Right CTR @ [facility] 06/29/2021 Left CTR with transposition @ [facility] - Back surgery - Back surgery Social [...] Care Team - VONDA CEJA MD - CREDIT OPERATIONS PROCESSOR Notes This dictation was done with voice recognition software and may contain errors and omissions. transcribed by Remy Mccormick * Progress note Date Encounter Last Documented by 01/31/2024 Follow Up Last documented on 02/05/2024; 6:49 PM, Tj Carrasco MD; [facility], [facility] Active Problems & Conditions - [...] Past Surgical History: 07/16/2019 Right CTR @ [facility] 06/29/2021 Left CTR with transposition @ [facility] - Back surgery - Back surgery Social [...] Care Team - VONDA CEJA MD - CREDIT OPERATIONS PROCESSOR Notes This dictation was done with voice recognition software and may contain errors and omissions. transcribed by Remy Mccormick * Progress note Date Encounter Last Documented by 11/29/2023 Follow Up Last documented on 12/05/2023; 1:24 PM, Tj Carrasco MD; [facility], [facility] Active Problems & Conditions - [...] Past Surgical History: 07/16/2019 Right CTR @ [facility] 06/29/2021 Left CTR with transposition @ [facility] - Back surgery - Back surgery Social [...] Care Team - VONDA CEJA MD - CREDIT OPERATIONS PROCESSOR Notes This dictation was done with voice recognition software and may contain errors and omissions. transcribed by Remy Mccormick * Progress note Date Encounter Last Documented by 07/25/2023 Follow Up Last documented on 07/25/2023; 11:35 AM, Art Vizcarra MD; [facility], [facility] Active Problems & Conditions - [...] Past Surgical History: 07/16/2019 Right CTR @ [facility] 06/29/2021 Left CTR with transposition @ [facility] - Back surgery - Back surgery Social [...] intervention. 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 Care Team - VONDA CEJA MD - CREDIT OPERATIONS PROCESSOR Notes This dictation was done with voice recognition software and may contain errors and omissions. * Progress note Date Encounter Last Documented by 07/19/2023 NEW PROBLEM/EST PT Last document ed on 02/06/2024; 3:26 PM, Tj Carrasco MD; [facility], [facility] Active Problems & Conditions - [...] Past Surgical History: 07/16/2019 Right CTR @ [facility] 06/29/2021 Left CTR with transposition @ [facility] - Back surgery Social History Not a [...] Care Team - VONDA CEJA MD - CREDIT OPERATIONS PROCESSOR Notes This dictation was done with voice recognition software and may contain errors and omissions. * Progress note Date Encounter Last Documented by 07/10/2023 Physician Specified Mario allan on 07/10/2023; 8:38 PM, Art Vizcarra MD; [facility], [facility] Active Problems & Conditions - [...] Past Surgical History: 07/16/2019 Right CTR @ [facility] 06/29/2021 Left CTR with transposition @ [facility] - Back surgery - Back surgery Social [...] Care Team - VONDA CEJA MD - CREDIT OPERATIONS PROCESSOR Notes This dictation was done with voice recognition software and may contain errors and omissions.
--- OUTSIDE RECORDS SUMMARY | 2024-06-03 12:36 | XMS_ITS ---
Care Plan - [facility] Created on: June 03, 2024 Mariana Villaseñor V : 1960 Sex: Female Author Name Unknown Address [address] [place] [address] Phone Organization [facility] Address [address] [place] [address] Phone Care Team Providers Care Health Services Administrator Name Role Phone MARCIAL CHEUNG, VONDA Unavailable [phone] Danilo CHEUNG, Tj Early Unavailable [phone]
--- OUTSIDE RECORDS SUMMARY | 2024-06-03 12:36 | XMS_ITS | Clinical Summary ---
Author Name Unknown Address [address] [place] [address] Phone Organization [facility] Address [address] [place] [address] Phone Care Team Providers Care Transportation Department Head Name Role Phone MARCIAL CHEUNG, VONDA Unavailable [phone] Tj Carrasco MD Unavailable [phone] Reason for Visit and Chief Complaint The Chief Complaint is: Left thumb pain/R middle finger pain Problems Includes: Problems addressed during this encounter and other active Problems Current Visit Onset Date Resolved Date Provider Conditio n Status Lower Back Pain 07/07/2021 Neo Sandhu MD A ctive Last Documented On 1 8:43AM ; [facility], [facility] Past Visits Onset Date Resolved Date Provider Condition Status Joint Pain in the Right Knee 07/10/2023 Art Vizcarra MD Active Last Documented On 3 1:51PM ; [facility], [facility] Neck Pain 07/07/2021 Neo Sandhu MD Active Last Documented On 1 8:43AM ; [facility], [facility] Joint Pain, Localized in Both Shoulders 07/21/2020 Haider Madera MD Active Last Documented On 0 3:28PM ; [facility], [facility] Joint Pain Fingers of Both Hands 05/20/2019 Isaac Carrasco MD Active Last Documented On 9 8:23AM ; [facility], [facility] Plan of Treatment We will discontinue use of the splint at this time as she complains of shoulder pain wearing the splint. We will see her back in two weeks for recheck. In the meantime we will have her see OT for ROM today. - Last Documented On 04/29/2024 3:29PM ; [facility], [facility] Instructions to patient Lose weight Last Documented On 4 8:50AM ; [facility], [facility] Assessments Includes: Assessments from this encounter Findings - Overweight - Last Documented On 04/29/2024 3:29PM ; [facility], [facility] Instructions Includes: Instructions from this encounter Instructions to patient Lose weight Last Documented On 4 8:50AM ; [facility], [facility] Medical Equipment - Implanted Devices Includes: Current Devices No Medical Equipment Recorded Medications Includes: Medications discussed during this encounter and other current Medications Current Medications (continue as prescribed) Pantoprazole Sodium 40 MG Oral Tablet Delayed Release 05/03/2024 Provider: Diagnosis: Last Documented On 4 10:07AM By Miguel Chiu ; [facility], [facility] Omeprazole 40 MG Oral Capsule Delayed Release 04/23/20 Provider: Diagnosis: Last Documented On 4 10:07AM By Miguel Chiu ; [facility] Losartan Potassium 100 MG Or al Tablet 04/18/2024 Provider: Therese falcon APRN Diagnosis: Last Documented On 4 8:50AM By Miguel Chiu ; [facility], [facility] Glimepiride 4 MG Oral Tablet 04/18/2024 Provider: Diagnosis: Last Documented On 4 8:50AM By Miguel Chiu ; [facility] Neurontin 300 MG Oral Capsule 04/17/2024 Provider: Tj Carrasco MD Diagnosis: 1 every bedtime Last Documented On 4 2:04PM By Dr. Carrasco ; [facility], [facility] HYDROcodone-Acetaminophen 7. 5-325 MG Oral Tablet 04/09/2024 Provider: Tj Carrasco MD Diagnosis: 1 q 6 hours prn pain Last Documented On 4 9:24AM By Dr. Carrasco ; [facility] Promethazine-DM 6.25-15 MG/5 ML Oral Syrup 04/02/2024 Provider: Therese falcon APRN Diagnosis: Last Documented On 4 8:50AM By Miguel Chiu ; [facility] Mounjaro 2.5 MG/0.5ML Subcutaneous Solution Pen-inject or 03/31/2024 Provider: Diagnosis: Last Documented On 4 8:50AM By Miguel Chiu ; [facility] Doxycycline Hyclate 100 MG Oral Capsule 03/23/2024 P rovider: VONDA CEJA MD Diagnosis: Last Documented On 4 8:50AM By Miguel Chiu ; [facility] Benzonatate 200 MG Oral Capsule 03/23/2024 Provider: VONDA CEJA MD Diagnosis: Last Documented On 4 8:50AM By Miguel Chiu ; [facility] Promethazine-DM 6.25-15 MG/5 ML Oral Syrup 03/19/2024 Provider: Therese falcon APRN Diagnosis: Last Documented On 4 8:50AM By Miguel Chiu ; [facility] Fluconazole 150 MG Oral Tablet 03/16/2024 Provider: Diagnosis: Last Documented On 4 8:50AM By Miguel Chiu ; [facility] Cefdinir 300 MG Oral Capsule 03/15/2024 Provider: Therese Gomes APRN Diagnosis: Last Documented On 4 8:50AM By Miguel Chiu ; [facility] Lovastatin 40 MG Oral Tablet 03/04/2024 Provider: VONDA CEJA MD Diagnosis: Last Documented On 4 8:50AM By Miguel Chiu ; [facility] Acyclovir 5% External Ointment 01/23/2024 Provider: Therese Gomes APRN Diagnosis: Last Documented On 4 8:50AM By Miguel Chiu ; [facility] Mupirocin 2% External Ointment 01/23/2024 Provider: Therese Gomes APRN Diagnosis: Last Documented On 4 8:50AM By Miguel Chiu ; [facility] Amoxicillin-Pot Clavulanate 875-125 MG Oral Tablet 01/23/2024 Provider: Therese falcon APRN Diagnosis: Last Documented On 4 8:50AM By Miguel Chiu ; [facility] Ozempic (0.25 or 0.5 MG/DOSE ) 2 MG/1.5ML Subcutaneous Solution Pen-injector 11/29/2023 Provider: Diagnosis: Last Documented On 4 10:45AM By Natasha Figueredo ; [facility], [facility] Alpha Lipoic Acid 200 MG Oral Capsule 07/13/2023 Pro vider: KATHRYN MARISCAL MD Diagnosis: Last Documented On 3 10:03AM By Garth Cramer ; [facility] Rheumate Oral Capsule 07/13/2023 Provider: KATHRYN ARMENTA MD Diagnosis: Last Documented On 3 10:03AM By Garth Cramer ; [facility] metFORMIN HCl ER 500 MG Oral Tablet Extended Rel ease 24 Hour 07/11/2023 Provider: Diagnosis: Last Documented On 3 10:03AM By Garth Cramer ; [facility] DULoxetine HCl 60 MG Oral Ca psule Delayed Release Particles 07/03/2023 Provider: JUAN DAVID COTO MD Diagnosis: Last Documented On 3 10:03AM By Garth Cramer ; [facility] Gabapentin 400 MG Oral Capsule 07/03/2023 Provider: JUAN DAVID COTO MD Diagnosis: Last Documented On 3 10:03AM By Garth Cramer ; [facility] Past Medications on file Ativan 1 MG Oral Tablet 07/18/2023 - 07/19/2023 Provid er: Art Vizcarra MD Diagnosis: take as directed; Take 1 tab let 1 hour before MRI; May take an additional tablet if needed. Last Documented On 3 3:09PM By Dr. Vizcarra ; [facility] Medications Administered Includes: Administered Medications from this encounter No Administered Medications Recorded Vital Signs Includes: Vital Signs from this encounter Vital Name 04/24/2024 08:50A Height (in) 64 Weight (lb) 165 Body Mass Index 28.3 Body Surface Area 1.8 Note: jl Last Documented: On 04/24/2024 8:51AM ; [facility], [facility] Results Includes: Results discussed during this [...] 02/06/2024 Last Documented On 4 8:50AM ; [facility] No recent change in diet 02/06/2024 Last Documented On 4 8:50AM ; [facility] Not a current smoker. 02/06/2024 Last Documented On 4 8:50AM ; [facility] Non-smoker 11/17/2021 Last Documented On 4 8:50AM ; [facility] Exercising regularly 2-3 times a week Last Documented On 4 8:50AM ; [facility] No caffeine use 08/23/2021 Last Documented On 4 8:50AM ; [facility] No recent change in diet 08/23/2021 Last Documented On 4 8:50AM ; [facility] Not a current smoker. 07/21/2020 Last Documented On 4 8:50AM ; [facility] No tobacco use 07/21/2020 Last Documented On 4 8:50AM ; [facility] Not a current smoker 07/21/2020 Last Documented On 4 8:50AM ; [facility] Not using alcohol 07/21/2020 Last Documented On 4 8:50AM ; [facility] Not using drugs 07/21/2020 Last Documented On 4 8:50AM ; [facility] Smoking status : Never smoker 07/21/2020 Last Documented On 4 8:50AM ; [facility] Procedures and Surgical History Includes: Procedures from this encounter Procedures Code Diagnosis Performing Provider Service L ocation Service Date use of tobacco assessment performed 1000F Last Documented On 4 8:50AM ; [facility] an X-ray was performed 26953 Last Documented On 4 8:50AM ; [facility] Surgical History Last Updated History of back surgery 07/21/2020 Last Documented On 4 8:50AM ; [facility] History of heart surgery 07/21/2020 Last Documented On 4 8:50AM ; [facility] Medical History Includes: Medical History addressed during this encounter Description Last Updated Recent immunization for flu 08/20/2020 1 Last Documented On 4 8:50AM ; [facility] Past Surgical History: 07/[place] [facility] [place] with [place] [facility] [place]2021 Last Documented On 4 8:50AM ; [facility] Past surgical history non-contributory: Foot & hand sx 07/21/2020 Last Documented On 4 8:50AM ; [facility] Arthritis 07/21/2020 Last Documented On 4 8:50AM ; [facility] Back surgery 07/21/2020 Last Documented On 4 8:50AM ; [facility] Heart surgery 07/21/2020 Last Documented On 4 8:50AM ; [facility] Hypertension 07/21/2020 Last Documented On 4 8:50AM ; [facility] No recent immunization for pneumococcal pneumonia 07/21/2020 Last Documented On 4 8:50AM ; [facility] Thyroid Disease 07/21/2020 Last Documented On 4 8:50AM ; [facility] A recent injection 07/21/2020 Last Documented On 4 8:50AM ; [facility] Arthritic joint problems 07/21/2020 Last Documented On 4 8:50AM ; [facility] History of diabetes mellitus 07/21/2020 Last Documented On 4 8:50AM ; [facility] History of heart disease 07/21/2020 Last Documented On 4 8:50AM ; [facility] Intermittent hypertension 07/21/2020 Last Documented On 4 8:50AM ; [facility] Thyroid disease 07/21/2020 Last Documented On 4 8:50AM ; [facility] Family History Includes: Family History addressed during this encounter Description Last Updated Family history of cancer 08/25/2021 Last Documented On 4 8:50AM ; [facility] Diabetes mellitus 08/23/2021 Last Documented On 4 8:50AM ; [facility] Family history of heart disease 08/23/20 21 Last Documented On 4 8:50AM ; [facility] Fraternal history of diabetes mellitus 0 07/21/2020 Last Documented On 4 8:50AM ; [facility] Fraternal history of family history of h eart disease 07/21/2020 Last Documented On 4 8:50AM ; [facility] Maternal history of family history of ca ncer 07/21/2020 Last Documented On 4 8:50AM ; [facility] Review of Systems Includes: Review of [...] Active Last Documented On 4 10:07AM ; [facility] Lipitor Allergy 05/20/2019 Active Last Documented On 4 10:07AM ; [facility] Darvocet A500 Allergy 07/16/2012 Activ e Last Documented On 4 10:07AM ; [facility] Crestor Allergy 05/20/2019 Active Last Documented On 4 10:07AM ; [facility] Encounters Encounter Provider Location Date Check-In Time Check-Out Time Diagnosis Post Op Tj Carrasco MD [facility] 4 8:40AM 9:17AM Overweight Insurance Includes: Active Insurance Policies Plan Name Member ID Group # Subscriber Relationship Effect ania Dates 1 - [employer] ([place]) Medicare [id number] Mariana Villaseñor Self Clinical Notes Includes: Clinical [...] Past Surgical History: 07/16/2019 [place] [facility] [place] with [place] [facility] [place] - Back surgery Social [...] Care Team - VONDA CEJA MD - MIXED CROP FARMER Notes This dictation was done with voice recognition software and may contain errors and omissions. transcribed by Remy Mccormick
--- OUTSIDE RECORDS SUMMARY | 2024-06-03 12:36 | XMS_ITS | Clinical Summary ---
Author Name Unknown Address [address] [place] [address] Phone Organization [facility] , [facility] Address [address] [place] [address] Phone Care Team Providers Care Weed Cooking Operator Name Role Phone MARCIAL CHEUNG, VONDA Unavailable [phone] Tj Carrasco MD Unavailable [phone] Reason for Visit and Chief Complaint The Chief Complaint is: Left thumb pain/R middle finger pain Problems Includes: Problems addressed during this encounter and other active Problems Current Visit Onset Date Resolved Date Provider Conditio n Status Lower Back Pain 07/07/2021 Neo Sandhu MD A ctive Last Documented On 1 8:43AM ; [facility], [facility] Past Visits Onset Date Resolved Date Provider Condition Status Joint Pain in the Right Knee 07/10/2023 Art Vizcarra MD Active Last Documented On 3 1:51PM ; [facility], [facility] Neck Pain 07/07/2021 Neo Sandhu MD Active Last Documented On 1 8:43AM ; [facility], [facility] Joint Pain, Localized in Both Shoulders 07/21/2020 Haider Madera MD Active Last Documented On 0 3:28PM ; [facility], [facility] Joint Pain Fingers of Both Hands 05/20/2019 Isaac Carrasco MD Active Last Documented On 9 8:23AM ; [facility], [facility] Plan of Treatment I explained to the [...] - Last Documented On 05/12/2024 9:27PM ; [facility], [facility] Instructions to patient Lose weight Last Documented On 4 10:08AM ; [facility], [facility] Assessments Includes: Assessments from this encounter Findings - Overweight - Last Documented On 05/12/2024 9:27PM ; [facility], [facility] Instructions Includes: Instructions from this encounter Instructions to patient Lose weight Last Documented On 4 10:08AM ; [facility], [facility] Medical Equipment - Implanted Devices Includes: Current Devices No Medical Equipment Recorded Medications Includes: Medications discussed during this encounter and other current Medications Current Medications (continue as prescribed) Pantoprazole Sodium 40 MG Oral Tablet Delayed Release 05/03/2024 Provider: Diagnosis: Last Documented On 4 10:07AM By Miguel Chiu ; [facility], [facility] Omeprazole 40 MG Oral Capsule Delayed Release 04/23/20 24 Provider: Diagnosis: Last Documented On 4 10:07AM By Miguel Chiu ; [facility], [facility] Losartan Potassium 100 MG Or al Tablet 04/18/2024 Provider: Therese falcon APRN Diagnosis: Last Documented On 4 8:50AM By Miguel Chiu ; [facility], [facility] Glimepiride 4 MG Oral Tablet 04/18/2024 Provider: Diagnosis: Last Documented On 4 8:50AM By Miguel Chiu ; [facility], [facility] Neurontin 300 MG Oral Capsule 04/17/2024 Provider: Tj Carrasco MD Diagnosis: 1 every bedtime Last Documented On 4 2:04PM By Dr. Carrasco ; [facility] HYDROcodone-Acetaminophen 7. 5-325 MG Oral Tablet 04/09/2024 Provider: Tj Carrasco MD Diagnosis: 1 q 6 hours prn pain Last Documented On 4 9:24AM By Dr. Carrasco ; [facility] Promethazine-DM 6.25-15 MG/5 ML Oral Syrup 04/02/2024 Provider: Therese falcon HOTEL DESK CLERK Diagnosis: Last Documented On 4 8:50AM By Miguel Chiu ; [facility] Mounjaro 2.5 MG/0.5ML Subcutaneous Solution Pen-inject or 03/31/2024 Provider: Diagnosis: Last Documented On 4 8:50AM By Miguel Chiu ; [facility] Doxycycline Hyclate 100 MG Oral Capsule 03/23/2024 P rovider: VONDA CEJA MD Diagnosis: Last Documented On 4 8:50AM By Miguel Chiu ; [facility] Benzonatate 200 MG Oral Capsule 03/23/2024 Provider: VONDA CEJA MD Diagnosis: Last Documented On 4 8:50AM By Miguel Chiu ; [facility] Promethazine-DM 6.25-15 MG/5 ML Oral Syrup 03/19/2024 Provider: Therees falcon HOTEL DESK CLERK Diagnosis: Last Documented On 4 8:50AM By Miguel Chiu ; [facility] Fluconazole 150 MG Oral Tablet 03/16/2024 Provider: Diagnosis: Last Documented On 4 8:50AM By Miguel Chiu ; [facility] Cefdinir 300 MG Oral Capsule 03/15/2024 Provider: Therese Gomes APRN Diagnosis: Last Documented On 4 8:50AM By Miguel Chiu ; [facility] Lovastatin 40 MG Oral Tablet 03/04/2024 Provider: VONDA CEJA MD Diagnosis: Last Documented On 4 8:50AM By Miguel Chiu ; [facility] Acyclovir 5% External Ointment 01/23/2024 Provider: Therese Gomes HOTEL DESK CLERK Diagnosis: Last Documented On 4 8:50AM By Miguel Chiu ; [facility] Mupirocin 2% External Ointment 01/23/2024 Provider: Therese Gomes HOTEL DESK CLERK Diagnosis: Last Documented On 4 8:50AM By Miguel Chiu ; [facility] Amoxicillin-Pot Clavulanate 875-125 MG Oral Tablet 01/23/2024 Provider: Therese falcon HOTEL DESK CLERK Diagnosis: Last Documented On 4 8:50AM By Miguel Chiu ; [facility], [facility] Ozempic (0.25 or 0.5 MG/DOSE ) 2 MG/1.5ML Subcutaneous Solution Pen-injector 11/29/2023 Provider: Diagnosis: Last Documented On 4 10:45AM By Natasha Figueredo ; [facility], [facility] Alpha Lipoic Acid 200 MG Oral Capsule 07/13/2023 Pro vider: KATHRYN MARISCAL MD Diagnosis: Last Documented On 3 10:03AM By Garth Cramer ; [facility], [facility] Rheumate Oral Capsule 07/13/2023 Provider: KATHRYN ARMENTA MD Diagnosis: Last Documented On 3 10:03AM By Garth Cramer ; [facility], [facility] metFORMIN HCl ER 500 MG Oral Tablet Extended Rel ease 24 Hour 07/11/2023 Provider: Diagnosis: Last Documented On 3 10:03AM By Garth Cramer ; [facility], [facility] DULoxetine HCl 60 MG Oral Ca psule Delayed Release Particles 07/03/2023 Provider: JUAN DAVID COTO MD Diagnosis: Last Documented On 3 10:03AM By Garth Cramer ; [facility], [facility] Gabapentin 400 MG Oral Capsule 07/03/2023 Provider: JUAN DAVID COTO MD Diagnosis: Last Documented On 3 10:03AM By Garth Cramer ; [facility], [facility] Past Medications on file Ativan 1 MG Oral Tablet 07/18/2023 - 07/19/2023 Provid er: Art Vizcarra MD Diagnosis: take as directed; Take 1 tab let 1 hour before MRI; May take an additional tablet if needed. Last Documented On 3 3:09PM By Dr. Vizcarra ; [facility], [facility] Medications Administered Includes: Administered Medications from this encounter No Administered Medications Recorded Vital Signs Includes: Vital Signs from this encounter Vital Name 05/08/2024 10:08A Height (in) 64 Weight (lb) 165 Body Mass Index 28.3 Body Surface Area 1.8 Note: jl Last Documented: On 05/08/2024 10:08A M ; [facility], [facility] Results Includes: Results discussed [...] 02/06/2024 Last Documented On 4 10:07AM ; [facility], [facility] No recent change in diet 02/06/2024 Last Documented On 4 10:07AM ; [facility], [facility] Not a current smoker. 02/06/2024 Last Documented On 4 10:07AM ; [facility], [facility] Non-smoker 11/17/2021 Last Documented On 4 10:07AM ; [facility], [facility] Exercising regularly 2-3 times a week Last Documented On 4 10:07AM ; [facility], [facility] No caffeine use 08/23/2021 Last Documented On 4 10:07AM ; [facility], [facility] No recent change in diet 08/23/2021 Last Documented On 4 10:07AM ; [facility], [facility] Not a current smoker. 07/21/2020 Last Documented On 4 10:07AM ; [facility], [facility] No tobacco use 07/21/2020 Last Documented On 4 10:07AM ; [facility], [facility] Not a current smoker 07/21/2020 Last Documented On 4 10:07AM ; [facility], [facility] Not using alcohol 07/21/2020 Last Documented On 4 10:07AM ; [facility], [facility] Not using drugs 07/21/2020 Last Documented On 4 10:07AM ; [facility], [facility] Smoking status : Never smoker 07/21/2020 Last Documented On 4 10:07AM ; [facility], [facility] Procedures and Surgical History Includes: Procedures from this encounter Procedures Code Diagnosis Performing Provider Service Location Service Date THER INJECTION, CARP TUNNEL (Unrelated Procedure, RIGHT) Carpal tunnel syndrome, right upper limb Tj Carrasco MD [facility] 05/08/2024 Last Documented On 4 10:59AM ; [facility], [facility] INJ TENDON SHEATH/LIGAMENT (Distinct procedure, LEFT) 12619 Trigger finger, left middle finger Tj Carrasco MD [facility] 05/08/2024 Last Documented On 4 10:59AM ; [facility], [facility] Triamcinolone/Kenalog, 10mg per cc J3301 Trigger finger, left middle finger Tj Carrasco MD [facility] 05/08/2024 Last Documented On 4 10:59AM ; [facility], [facility] use of tobacco assessment performed 1000F Last Documented On 4 10:08AM ; [facility], [facility] an X-ray was performed 95856 Last Documented On 4 10:08AM ; [facility], [facility] Surgical History Last Updated History of back surgery 07/21/2020 Last Documented On 4 10:07AM ; [facility], [facility] History of heart surgery 07/21/2020 Last Documented On 4 10:07AM ; [facility], [facility] Medical History Includes: Medical History addressed during this encounter Description Last Updated Recent immunization for flu 08/20/2020 1 Last Documented On 4 10:07AM ; [facility], [facility] Past Surgical History: 07/16 Right CTR @ [facility] ~06/29/2021 [place] [facility] [place] Last Documented On 4 10:07AM ; [facility], [facility] Past surgical history non-contributory: [...] 07/21/2020 Last Documented On 4 10:07AM ; [facility] No recent immunization for pneumococcal pneumonia 07/21/2020 Last Documented On 4 10:07AM ; [facility] Thyroid Disease 07/21/2020 Last Documented On 4 10:07AM ; [facility] A recent injection 07/21/2020 Last Documented On 4 10:07AM ; [facility] Arthritic joint problems 07/21/2020 Last Documented On 4 10:07AM ; [facility] History of diabetes mellitus 07/21/2020 Last Documented On 4 10:07AM ; [facility] History of heart disease 07/21/2020 Last Documented On 4 10:07AM ; [facility] Intermittent hypertension 07/21/2020 Last Documented On 4 10:07AM ; [facility] Thyroid disease 07/21/2020 Last Documented On 4 10:07AM ; [facility] Family History Includes: Family History addressed during this encounter Description Last Updated Family history of cancer 08/25/2021 Last Documented On 4 10:07AM ; [facility] Diabetes mellitus 08/23/2021 Last Documented On 4 10:07AM ; [facility] Family history of heart disease 08/23/20 21 Last Documented On 4 10:07AM ; [facility] Fraternal history of diabetes mellitus 0 07/21/2020 Last Documented On 4 10:07AM ; [facility] Fraternal history of family history of h eart disease 07/21/2020 Last Documented On 4 10:07AM ; [facility] Maternal history of family history of ca ncer 07/21/2020 Last Documented On 4 10:07AM ; [facility] Review of Systems Includes: Review [...] Active Last Documented On 4 10:07AM ; [facility], [facility] Lipitor Allergy 05/20/2019 Active Last Documented On 4 10:07AM ; [facility], [facility] Darvocet A500 Allergy 07/16/2012 Activ e Last Documented On 4 10:07AM ; [facility], [facility] Crestor Allergy 05/20/2019 Active Last Documented On 4 10:07AM ; [facility], [facility] Encounters Encounter Provider Location Date Check-In Time Check-Out Time Diagnosis Post Op Tj Carrasco MD [facility] 4 10:02AM 10:22AM Overweight Insurance Includes: Active Insurance Policies Plan Name Member ID Group # Subscriber Relationship Effect ania Dates 1 - [employer] ([employer]) Medicare [id number] Mariana Villaseñor Self Clinical Notes Includes: Clinical Notes from this encounter * Progress note Date Encounter Last Documented by 05/08/2024 Post Op Last documented on 05/12/2024; 9:27 PM, Tj Carrasco MD; [facility], [facility] Active Problems & Conditions - Joint Pain [...] Past Surgical History: [place]/[address] [place] [facility] [place] CTR with [place] [facility] [place] Back surgery - Back surgery Social [...] Care Team - VONDA CEJA MD - STRE[employer] STARTER Notes This dictation was done with voice recognition software and may contain errors and omissions. transcribed by Remy Mccormick
--- OUTSIDE RECORDS SUMMARY | 2024-06-03 12:36 | XMS_ITS | Clinical Summary ---
Author Name Unknown Address [address] [place] [address] Phone Organization [facility] Address [address] [place] [address] Phone Care Team Providers Care Laundry Marker Supervisor Name Role Phone MARCIAL CHEUNG, VONDA Unavailable [phone] Tj Carrasco MD Unavailable [phone] Reason for Visit and Chief Complaint The Chief Complaint is: Left thumb pain/R middle finger pain Problems Includes: Problems addressed during this encounter and other active Problems Current Visit Onset Date Resolved Date Provider Conditio n Status Lower Back Pain 07/07/2021 Neo Sandhu MD A ctive Last Documented On 1 8:43AM ; [facility] Past Visits Onset Date Resolved Date Provider Condition Status Joint Pain in the Right Knee 07/10/2023 Art Vizcarra MD Active Last Documented On 3 1:51PM ; [facility] Neck Pain 07/07/2021 Neo Sandhu MD Active Last Documented On 1 8:43AM ; [facility] Joint Pain, Localized in Both Shoulders 07/21/2020 Haider Madera MD Active Last Documented On 0 3:28PM ; [facility] Joint Pain Fingers of Both Hands 05/20/2019 Isaac Carrasco MD Active Last Documented On 9 8:23AM ; [facility] Plan of Treatment Patient is here today one week post [...] back in one week for suture removal. - Last Documented On 04/21/2024 9:54PM ; [facility] Instructions to patient Lose weight Last Documented On 4 1:16PM ; [facility] Assessments Includes: Assessments from this encounter Findings - Overweight - Last Documented On 04/21/2024 9:54PM ; [facility] Instructions Includes: Instructions from this encounter Instructions to patient Lose weight Last Documented On 4 1:16PM ; [facility] Medical Equipment - Implanted Devices Includes: Current Devices No Medical Equipment Recorded Medications Includes: Medications discussed during this encounter and other current Medications New / Renewed during this visit Tj Carrasco MD on 04/17/2024 Neurontin 300 MG Oral Capsule Provider: Tj Carrasco MD 30 day supply: 30 capsule, 0 refills Diagnosis: 1 every bedtime Pharmacy: [facility] [phone], [id number] - Last Documented On 4 2:04PM By Dr. Carrasco ; [facility] Current Medications (continue as prescribed) Pantoprazole Sodium 40 MG Oral Tablet Delayed Release 05/03/2024 Provider: Diagnosis: Last Documented On 4 10:07AM By Miguel Chiu ; [facility], [facility] Omeprazole 40 MG Oral Capsule Delayed Release 04/23/20 Provider: Diagnosis: Last Documented On 4 10:07AM By Miguel Ramos [facility], [facility] Losartan Potassium 100 MG Or al Tablet 04/18/2024 Provider: Therese falcon APRN Diagnosis: Last Documented On 4 8:50AM By Miguel Chiu ; [facility] Glimepiride 4 MG Oral Tablet 04/18/2024 Provider: Diagnosis: Last Documented On 4 8:50AM By Miguel Chiu ; [facility], [facility] HYDROcodone-Acetaminophen 7. 5-325 MG Oral Tablet 04/09/2024 Provider: Tj Carrasco MD Diagnosis: 1 q 6 hours prn pain Last Documented On 4 9:24AM By Dr. Carrasco ; [facility] Promethazine-DM 6.25-15 MG/5 ML Oral Syrup 04/02/2024 Provider: Therese falcon APRN Diagnosis: Last Documented On 4 8:50AM By Miguel Chiu ; [facility] Mounjaro 2.5 MG/0.5ML Subcutaneous Solution Pen-inject or 03/31/2024 Provider: Diagnosis: Last Documented On 4 8:50AM By Miguel Chiu ; [facility] Doxycycline Hyclate 100 MG Oral Capsule 03/23/2024 Mazin rivera: VONDA CEJA MD Diagnosis: Last Documented On 4 8:50AM By Miguel Chiu ; [facility] Benzonatate 200 MG Oral Capsule 03/23/2024 Provider: VONDA CEJA MD Diagnosis: Last Documented On 4 8:50AM By Miguel Chiu ; [facility] Promethazine-DM 6.25-15 MG/5 ML Oral Syrup 03/19/2024 Provider: Therese falcon APRN Diagnosis: Last Documented On 4 8:50AM By Miguel Chiu ; [facility] Fluconazole 150 MG Oral Tablet 03/16/2024 Provider: Diagnosis: Last Documented On 4 8:50AM By Miguel Chiu ; [facility] Cefdinir 300 MG Oral Capsule 03/15/2024 Provider: Therese Gomes APRN Diagnosis: Last Documented On 4 8:50AM By Miguel Chiu ; [facility] Lovastatin 40 MG Oral Tablet 03/04/2024 Provider: VONDA CEJA MD Diagnosis: Last Documented On 4 8:50AM By Miguel Chiu ; [facility] Acyclovir 5% External Ointment 01/23/2024 Provider: Therese Gomes APRN Diagnosis: Last Documented On 4 8:50AM By Miguel Chiu ; [facility] Mupirocin 2% External Ointment 01/23/2024 Provider: Therese Gomes HOTEL OR MOTEL CLEANING SUPERVISOR Diagnosis: Last Documented On 4 8:50AM By Miguel Chiu ; [facility], [facility] Amoxicillin-Pot Clavulanate 875-125 MG Oral Tablet 01/23/2024 Provider: Therese falcon HOTEL OR MOTEL CLEANING SUPERVISOR Diagnosis: Last Documented On 4 8:50AM By Miguel Chiu ; [facility], [facility] Ozempic (0.25 or 0.5 MG/DOSE ) 2 MG/1.5ML Subcutaneous Solution Pen-injector 11/29/2023 Provider: Diagnosis: Last Documented On 4 10:45AM By Natasha Figueredo ; [facility], [facility] Alpha Lipoic Acid 200 MG Oral Capsule 07/13/2023 Pro vider: KATHRYN MARISCAL MD Diagnosis: Last Documented On 3 10:03AM By Garth Cramer ; [facility], [facility] Rheumate Oral Capsule 07/13/2023 Provider: KATHRYN ARMENTA MD Diagnosis: Last Documented On 3 10:03AM By Garth Cramer ; [facility], [facility] metFORMIN HCl ER 500 MG Oral Tablet Extended Rel ease 24 Hour 07/11/2023 Provider: Diagnosis: Last Documented On 3 10:03AM By Garth Cramer ; [facility], [facility] DULoxetine HCl 60 MG Oral Ca psule Delayed Release Particles 07/03/2023 Provider: JUAN DAVID COTO MD Diagnosis: Last Documented On 3 10:03AM By Garth Cramer ; [facility], [facility] Gabapentin 400 MG Oral Capsule 07/03/2023 Provider: JUAN DAVID COTO MD Diagnosis: Last Documented On 3 10:03AM By Garth Cramer ; [facility], [facility] Past Medications on file Ativan 1 MG Oral Tablet 07/18/2023 - 07/19/2023 Provid er: Art Vizcarra MD Diagnosis: take as directed; Take 1 tab let 1 hour before MRI; May take an additional tablet if needed. Last Documented On 3 3:09PM By Dr. Vizcarra ; [facility], [facility] Medications Administered Includes: Administered Medications from this encounter No Administered Medications Recorded Vital Signs Includes: Vital Signs from this encounter Vital Name 04/17/2024 01:16P Height (in) 64 Weight (lb) 165 Body Mass Index 28.3 Body Surface Area 1.8 Note: Last Documented: On 04/17/2024 1:16PM ; [facility] Results Includes: Results discussed during this [...] splint was removed in the office today. Social History Description Last Updated Tobacco non-user 02/06/2024 Last Documented On 4 1:16PM ; [facility] No recent change in diet 02/06/2024 Last Documented On 4 1:16PM ; [facility] Not a current smoker. 02/06/2024 Last Documented On 4 1:16PM ; [facility] Non-smoker 11/17/2021 Last Documented On 4 1:16PM ; [facility] Exercising regularly 2-3 times a week Last Documented On 4 1:16PM ; [facility] No caffeine use 08/23/2021 Last Documented On 4 1:16PM ; [facility] No recent change in diet 08/23/2021 Last Documented On 4 1:16PM ; [facility] Not a current smoker. 07/21/2020 Last Documented On 4 1:16PM ; [facility] No tobacco use 07/21/2020 Last Documented On 4 1:16PM ; [facility] Not a current smoker 07/21/2020 Last Documented On 4 1:16PM ; [facility] Not using alcohol 07/21/2020 Last Documented On 4 1:16PM ; [facility], [facility] Not using drugs 07/21/2020 Last Documented On 4 1:16PM ; [facility], [facility] Smoking status : Never smoker 07/21/2020 Last Documented On 4 1:16PM ; [facility], [facility] Procedures and Surgical History Includes: Procedures from this encounter Procedures Code Diagnosis Performing Provider Service Location Service Date APPLY LONG ARM SPLINT (Related Proc Same Dr, RIGHT) 01014 Trigger finger, right middle finger Tj Carrasco MD [facility] 04/17/2024 Last Documented On 4 9:14AM ; [facility] use of tobacco assessment performed 1000F Last Documented On 4 1:16PM ; [facility], [facility] an X-ray was performed 43057 Last Documented On 4 1:16PM ; [facility], [facility] Surgical History Last Updated History of back surgery 07/21/2020 Last Documented On 4 1:16PM ; [facility] History of heart surgery 07/21/2020 Last Documented On 4 1:16PM ; [facility], [facility] Medical History Includes: Medical History addressed during this encounter Description Last Updated Recent immunization for flu 08/20/2020 1 Last Documented On 4 1:16PM ; [facility], [facility] Past Surgical History: 07[facility]16 [facility]21 [facility] 07/12/2021 Last Documented On 4 1:16PM ; [facility], [facility] Past surgical history non-contributory: Foot & hand sx 07/21/2020 Last Documented On 4 1:16PM ; [facility] Arthritis 07/21/2020 Last Documented On 4 1:16PM ; [facility] Back surgery 07/21/2020 Last Documented On 4 1:16PM ; [facility] Heart surgery 07/21/2020 Last Documented On 4 1:16PM ; [facility] Hypertension 07/21/2020 Last Documented On 4 1:16PM ; [facility] No recent immunization for pneumococcal pneumonia 07/21/2020 Last Documented On 4 1:16PM ; [facility] Thyroid Disease 07/21/2020 Last Documented On 4 1:16PM ; [facility] A recent injection 07/21/2020 Last Documented On 4 1:16PM ; [facility] Arthritic joint problems 07/21/2020 Last Documented On 4 1:16PM ; [facility] History of diabetes mellitus 07/21/2020 Last Documented On 4 1:16PM ; [facility] History of heart disease 07/21/2020 Last Documented On 4 1:16PM ; [facility] Intermittent hypertension 07/21/2020 Last Documented On 4 1:16PM ; [facility], [facility] Thyroid disease 07/21/2020 Last Documented On 4 1:16PM ; [facility], [facility] Family History Includes: Family History addressed during this encounter Description Last Updated Family history of cancer 08/25/2021 Last Documented On 4 1:16PM ; [facility] Diabetes mellitus 08/23/2021 Last Documented On 4 1:16PM ; [facility] Family history of heart disease 08/23/20 21 Last Documented On 4 1:16PM ; [facility], [facility] Fraternal history of diabetes mellitus 0 07/21/2020 Last Documented On 4 1:16PM ; [facility], [facility] Fraternal history of family history of h eart disease 07/21/2020 Last Documented On 4 1:16PM ; [facility], [facility] Maternal history of family history of ca ncer 07/21/2020 Last Documented On 4 1:16PM ; [facility] Review of Systems Includes: Review of [...] removed today. Good ROM of the fingers. Mental Status Includes: Mental Status from this encounter Description No anxiety Functional Status Includes: Functional Status from this encounter No Functional Status Recorded Physical Exam Includes: Physical Exam from this encounter Allergies Includes: Active Allergies Substance Type Reaction Onset Date Resolved Date Statu s plavix Allergy 07/16/2012 Active Last Documented On 4 10:07AM ; [facility] Lipitor Allergy 05/20/2019 Active Last Documented On 4 10:07AM ; [facility] Darvocet A500 Allergy 07/16/2012 Activ e Last Documented On 4 10:07AM ; [facility] Crestor Allergy 05/20/2019 Active Last Documented On 4 10:07AM ; [facility] Encounters Encounter Provider Location Date Check-In Time Check-Out Time Diagnosis Post Op Tj Carrasco MD [facility] 4 1:13PM 2:06PM Overweight Insurance Includes: Active Insurance Policies Plan Name Member ID Group # Subscriber Relationship Effect ania Dates 1 - BC[place] ([place]) Medicare [id number] Mariana Villaseñor Self Clinical Notes Includes: Clinical Notes from this encounter * Progress note Date Encounter Last Documented by 04/17/2024 Post Op Last documented on 04/21/2024; 9:54 PM, Tj Carrasco MD; [facility] Active Problems & Conditions - Joint [...] Past Surgical History: 07/16/2019 Right CTR @ [facility] 06/29/2021 Left CTR with transposition @ [facility] - Back surgery - [...] Care Team - VONDA CEJA MD - COMPUTER SYSTEMS INFORMATION DIRECTOR Notes This dictation was done with voice recognition software and may contain errors and omissions. transcribed by Remy Mccormick
--- OUTSIDE RECORDS SUMMARY | 2024-06-03 12:37 | XMS_ITS | Clinical Summary ---
Author Name Unknown Address [address] [place] [address] Phone Organization [facility] Address [address] [place] [address] Phone Care Team Providers Care Reconciliation Analyst Name Role Phone MARCIAL CHEUNG, VONDA Unavailable [phone] Tj Carrasco MD Unavailable [phone] Reason for Visit and Chief Complaint [facility] Outpatient Surgery Suites Problems Includes: Problems addressed during this encounter and other active Problems All Visits Onset Date Resolved Date Provider Condition S tatus Joint Pain in the Right Knee 07/10/2023 Art Vizcarra MD Active Last Documented On 3 1:51PM ; [facility], [facility] Neck Pain 07/07/2021 Neo Sandhu MD Active Last Documented On 1 8:43AM ; [facility] Lower Back Pain 07/07/2021 Neo Sandhu MD A ctive Last Documented On 1 8:43AM ; [facility] Joint Pain, Localized in Both Shoulders 07/21/2020 Haider Madera MD Active Last Documented On 0 3:28PM ; [facility] Joint Pain Fingers of Both Hands 05/20/2019 Isaac Carrasco MD Active Last Documented On 9 8:23AM ; [facility] Plan of Treatment No Plan of [...] On 4 10:07AM By Miguel Chiu ; [facility] Omeprazole 40 MG Oral Capsule Delayed Release 04/23/20 Provider: Diagnosis: Last Documented On 4 10:07AM By Miguel Chiu ; [facility] Losartan Potassium 100 MG Or al Tablet 04/18/2024 Provider: Therese falcon APRN Diagnosis: Last Documented On 4 8:50AM By Miguel Chiu ; [facility] Glimepiride 4 MG Oral Tablet 04/18/2024 Provider: Diagnosis: Last Documented On 4 8:50AM By Miguel Chiu ; [facility] Neurontin 300 MG Oral Capsule 04/17/2024 Provider: Tj Carrasco MD Diagnosis: 1 every bedtime Last Documented On 4 2:04PM By Dr. Carrasco ; [facility] HYDROcodone-Acetaminophen 7. 5-325 MG Oral Tablet 04/09/2024 Provider: Tj Carrasco MD Diagnosis: 1 q 6 hours prn pain Last Documented On 4 9:24AM By Dr. Carrasco ; [facility], [facility] Promethazine-DM 6.25-15 MG/5 ML Oral Syrup 04/02/2024 Provider: Therese falcon APRN Diagnosis: Last Documented On 4 8:50AM By Miguel Chiu ; [facility] Mounjaro 2.5 MG/0.5ML Subcutaneous Solution Pen-inject or 03/31/2024 Provider: Diagnosis: Last Documented On 4 8:50AM By Miguel Chiu ; [facility] Doxycycline Hyclate 100 MG Oral Capsule 03/23/2024 Mazin rivera: VONDA CEJA MD Diagnosis: Last Documented On 4 8:50AM By Miguel Chiu ; [facility] Benzonatate 200 MG Oral Capsule 03/23/2024 Provider: VONDA CEJA MD Diagnosis: Last Documented On 4 8:50AM By Miguel Chiu ; [facility] Promethazine-DM 6.25-15 MG/5 ML Oral Syrup 03/19/2024 Provider: Therese falcon APRN Diagnosis: Last Documented On 4 8:50AM By Miguel Chiu ; [facility] Fluconazole 150 MG Oral Tablet 03/16/2024 Provider: Diagnosis: Last Documented On 4 8:50AM By Miguel Chiu ; [facility] Cefdinir 300 MG Oral Capsule 03/15/2024 Provider: Therese Gomes APRN Diagnosis: Last Documented On 4 8:50AM By Miguel Chiu ; [facility] Lovastatin 40 MG Oral Tablet 03/04/2024 Provider: VONDA CEJA MD Diagnosis: Last Documented On 4 8:50AM By Miguel Chiu ; [facility] Acyclovir 5% External Ointment 01/23/2024 Provider: Therese Gomes APRN Diagnosis: Last Documented On 4 8:50AM By Miguel Chiu ; [facility] Mupirocin 2% External Ointment 01/23/2024 Provider: Therese Gomes APRN Diagnosis: Last Documented On 4 8:50AM By Miguel Chiu ; [facility] Amoxicillin-Pot Clavulanate 875-125 MG Oral Tablet 01/23/2024 Provider: Therese falcon APRN Diagnosis: Last Documented On 4 8:50AM By Miguel Chiu ; [facility] Ozempic (0.25 or 0.5 MG/DOSE ) 2 MG/1.5ML Subcutaneous Solution Pen-injector 11/29/2023 Provider: Diagnosis: Last Documented On 4 10:45AM By Natasha Figueredo ; [facility] Alpha Lipoic Acid 200 MG Oral Capsule 07/13/2023 Pro vider: KATHRYN MARISCAL MD Diagnosis: Last Documented On 3 10:03AM By Garth Cramer ; [facility] Rheumate Oral Capsule 07/13/2023 Provider: KATHRYN ARMENTA MD Diagnosis: Last Documented On 3 10:03AM By Garth Cramer ; [facility] metFORMIN HCl ER 500 MG Oral Tablet Extended Rel ease 24 Hour 07/11/2023 Provider: Diagnosis: Last Documented On 3 10:03AM By Garth Cramer ; [facility] DULoxetine HCl 60 MG Oral Ca psule Delayed Release Particles 07/03/2023 Provider: JUAN DAVID COTO MD Diagnosis: Last Documented On 3 10:03AM By Garth Cramer ; [facility] Gabapentin 400 MG Oral Capsule 07/03/2023 Provider: JUAN DAVID COTO MD Diagnosis: Last Documented On 3 10:03AM By Garth Cramer ; [facility] Medications Administered Includes: Administered Medications [...] Neuroplasty/Transp osition ulnar nerve at elbow (RIGHT) 47932 Lesion of ulnar nerve, right upper limb Tj Carrasco MD [facility] Surgical Division 04/11/2024 Last Documented On 4 6:15AM ; [facility] INCISE FINGER TENDON SHEATH (RIGHT HAND, THIRD DIGIT) 26312 Trigger finger, right middle finger Tj Carrasco MD [facility] Surgical Division 04/11/2024 Last Documented On 4 6:15AM ; [facility] Medical History Includes: Medical History [...] Active Last Documented On 4 10:07AM ; [facility] Lipitor Allergy 05/20/2019 Active Last Documented On 4 10:07AM ; [facility] Darvocet A500 Allergy 07/16/2012 Activ e Last Documented On 4 10:07AM ; [facility] Crestor Allergy 05/20/2019 Active Last Documented On 4 10:07AM ; [facility] Encounters Encounter Provider Location Date Check-In Time Check-Out Time Diagnosis [facility] Outpatient Surgery Suites Tj Carrasco MD Surgery 4 8:36AM 11:59PM Insurance Includes: Active Insurance Policies Plan Name Member ID Group # Subscriber Relationship Effect ania Dates 1 - BCBS ([place]) Medicare [id number] Mariana Villaseñor Self Clinical Notes Includes: Clinical Notes from this encounter No Clinical Notes Recorded
--- OUTSIDE RECORDS SUMMARY | 2024-06-03 12:37 | XMS_ITS | Clinical Summary ---
Author Name Unknown Address [address] [place] [address] Phone Organization [facility] Address [address] [place] [address] Phone Care Team Providers Care Flight Engineer Performance Qualified Name Role Phone MARCIAL CHEUNG, VONDA Unavailable [phone] Danilo CHEUNG, Tj Early Unavailable [phone] Reason for Visit and Chief Complaint [Patient Encounter] Problems Includes: Problems addressed during this encounter and other active Problems All Visits Onset Date Resolved Date Provider Condition S tatus Joint Pain in the Right Knee 07/10/2023 Art Vizcarra MD Active Last Documented On 3 1:51PM ; [facility] Neck Pain 07/07/2021 Neo Sandhu MD Active Last Documented On 1 8:43AM ; [facility] Lower Back Pain 07/07/2021 Neo Sandhu MD A ctive Last Documented On 1 8:43AM ; [facility] Joint Pain, Localized in Both Shoulders 07/21/2020 Haider Madera MD Active Last Documented On 0 3:28PM ; [facility] Joint Pain Fingers of Both Hands 05/20/2019 Isaac Carrasco MD Active Last Documented On 9 8:23AM ; [facility] Plan of Treatment No Plan of Treatment [...] 1 q 6 hours prn pain Pharmacy: [facility] [address], [address] - Last Documented On 4 9:24AM By Dr. Carrasco ; [facility] Current Medications (continue as prescribed) Pantoprazole Sodium 40 MG Oral Tablet Delayed Release 05/03/2024 Provider: Diagnosis: Last Documented On 4 10:07AM By Miguel Chiu ; [facility] Omeprazole 40 MG Oral Capsule Delayed Release 04/23/20 Provider: Diagnosis: Last Documented On 4 10:07AM By Miguel Chiu ; [facility] Losartan Potassium 100 MG Or al Tablet 04/18/2024 Provider: Therese falcon APRN Diagnosis: Last Documented On 4 8:50AM By Miguel Chiu ; [facility] Glimepiride 4 MG Oral Tablet 04/18/2024 Provider: Diagnosis: Last Documented On 4 8:50AM By Miguel Chiu ; [facility] Neurontin 300 MG Oral Capsule 04/17/2024 Provider: Tj Carrasco MD Diagnosis: 1 every bedtime Last Documented On 4 2:04PM By Dr. Carrasco ; [facility] Promethazine-DM 6.25-15 MG/5 ML Oral Syrup 04/02/2024 Provider: Therese falcon APRN Diagnosis: Last Documented On 4 8:50AM By Miguel Chiu ; [facility] Mounjaro 2.5 MG/0.5ML Subcutaneous Solution Pen-inject or 03/31/2024 Provider: Diagnosis: Last Documented On 4 8:50AM By Miguel Chiu ; [facility] Doxycycline Hyclate 100 MG Oral Capsule 03/23/2024 Mazin rivera: VONDA CEJA MD Diagnosis: Last Documented On 4 8:50AM By Miguel Chiu ; [facility] Benzonatate 200 MG Oral Capsule 03/23/2024 Provider: VONDA CEJA MD Diagnosis: Last Documented On 4 8:50AM By Miguel Chiu ; [facility] Promethazine-DM 6.25-15 MG/5 ML Oral Syrup 03/19/2024 Provider: Therese falcon PHD INTERNSHIP Diagnosis: Last Documented On 4 8:50AM By Miguel Chiu ; [facility] Fluconazole 150 MG Oral Tablet 03/16/2024 Provider: Diagnosis: Last Documented On 4 8:50AM By Miguel Chiu ; [facility] Cefdinir 300 MG Oral Capsule 03/15/2024 Provider: Therese Gomes APRN Diagnosis: Last Documented On 4 8:50AM By Miguel Chiu ; [facility] Lovastatin 40 MG Oral Tablet 03/04/2024 Provider: VONDA CEJA MD Diagnosis: Last Documented On 4 8:50AM By Miguel Chiu ; [facility] Acyclovir 5% External Ointment 01/23/2024 Provider: Therese Gomes PHD INTERNSHIP Diagnosis: Last Documented On 4 8:50AM By Miguel Chiu ; [facility] Mupirocin 2% External Ointment 01/23/2024 Provider: Therese Gomes APRN Diagnosis: Last Documented On 4 8:50AM By Miguel Chiu ; [facility] Amoxicillin-Pot Clavulanate 875-125 MG Oral Tablet 01/23/2024 Provider: Therese falcon PHD INTERNSHIP Diagnosis: Last Documented On 4 8:50AM By Miguel Chiu ; [facility] Ozempic (0.25 or 0.5 MG/DOSE ) 2 MG/1.5ML Subcutaneous Solution Pen-injector 11/29/2023 Provider: Diagnosis: Last Documented On 4 10:45AM By Natasha Figueredo ; [facility] Alpha Lipoic Acid 200 MG Oral Capsule 07/13/2023 Pro vider: KATHRYN MARISCAL MD Diagnosis: Last Documented On 3 10:03AM By Garth Cramer ; [facility] Rheumate Oral Capsule 07/13/2023 Provider: KATHRYN ARMENTA MD Diagnosis: Last Documented On 3 10:03AM By Garth Cramer ; [facility] metFORMIN HCl ER 500 MG Oral Tablet Extended Rel ease 24 Hour 07/11/2023 Provider: Diagnosis: Last Documented On 3 10:03AM By Garth Cramer ; [facility], [facility] DULoxetine HCl 60 MG Oral Ca psule Delayed Release Particles 07/03/2023 Provider: JUAN DAVID COTO MD Diagnosis: Last Documented On 3 10:03AM By Garth Cramer ; [facility] Gabapentin 400 MG Oral Capsule 07/03/2023 Provider: JUAN DAVID COTO MD Diagnosis: Last Documented On 3 10:03AM By Garth Cramer ; [facility] Medications Administered Includes: Administered Medications from this [...] 4 10:07AM ; [facility] Lipitor Allergy 05/20/2019 Active Last Documented On 4 10:07AM ; [facility] Darvocet A500 Allergy 07/16/2012 Activ e Last Documented On 4 10:07AM ; [facility] Crestor Allergy 05/20/2019 Active Last Documented On 4 10:07AM ; [facility] Encounters Encounter Provider Location Date Check-In Time Check-Out Time Diagnosis [Patient Encounter] Tj Carrasco MD 04/09/2024 9:17AM 11:59PM Insurance Includes: Active Insurance Policies Plan Name Member ID Group # Subscriber Relationship Effect ania Dates 1 - BC[employer] ([place]) Medicare [id number] Mariana Villaseñor Self Clinical Notes Includes: Clinical Notes from this encounter No Clinical Notes Recorded
--- OUTSIDE RECORDS SUMMARY | 2024-06-03 12:37 | XMS_ITS | Patient Health Record ---
Author Name Unknown Organization [facility] Address [address] [place] [address] Care Team Providers Care Blemish Remover Name Role Phone Osmin Luna Primary Care Provider UnavailVance Liu Unavailable [phone] Velma Galicia Unavailable Unavailable YONI CHEUNG, Dr. COX Unavailable [phone] EMMA PATTERSON Unavailable [phone] ALLERGIES Allergen (clinical drug ingredient) Drug/Non Drug Allergy documented on EMR Reaction Allergy Type Onset Date Status Darvocet-N 50 Unknown Drug Allergy Act ania clopidogrel Clopidogrel Unknown Drug Allergy Act ania rosuvastatin Rosuvastatin Unknown Drug Allergy A ctive Sutures Unknown Allergy Active RESULTS Component Value Reference Range Notes Uric Acid, Serum Reviewed date:01/23/2024 11:38:14 AM Interpretation: Performing Lab:[facility], [address] [facility], Phone - [phone], Director - [facility]Gaebler [facility] Cent[facility]ilvia[facility] Notes/Report: Uric Acid 4.1 3.0-7.2 mg/dL Therapeutic ta rget for gout patients: <6.0 Prot+CreatU (Random) Reviewed date:01/23/2024 11:39:50 AM Interpretation: Performing Lab:[facility] [facility], Phone - [phone], Director - PhDGaebler Children'S Centeruti Notes/Report: Creatinine, Urine 114.4 Not Estab. mg/dL Protein,Total,Urine 11.0 Not Estab. mg/dL Protein/Creat Ratio 96 0-200 mg/g creat Urinalysis, Complete Reviewed date:01/23/2024 11:40:04 AM Interpretation: Performing Lab:[facility], [address] [facility], Phone - [phone], Director - PhDGaebler Children'S Centeruti Notes/Report: Specific [place] 1.018 1.005-1.030 pH 5.5 5.0-7.5 Urine-Color Yellow [...] D Reviewed date:01/23/2024 11:38:27 AM Interpretation: Performing Lab:[facility] [place] [address] [facility], Phone - [phone], Director - [facility] Notes/Report: Vitamin D, 25-Hydroxy 29.8 30.0-100.0 ng/mL Vitamin D deficiency has been defined by the [place] of Medicine and an Endocrine Society practice guideline as a level of serum 25-OH vitamin D less than 20 ng/mL (1,2). The Endocrine Society went on to further define vitamin D insufficiency as a level between 21 and 29 ng/mL (2). 1. IOM ([place] of Medicine). 2010. Dietary reference intakes for calcium and D. [place]: The National Academies Press. 2. Carie MF, Emile NC, Elisabeth HERNANDEZ, et al. Evaluation, treatment, and prevention of vitamin D deficiency: an Endocrine Society clinical practice guideline. JCEM. 2010; 96(7):1911-30. .Renal Function Panel Reviewed date:01/23/2024 11:38:02 AM Interpretation: Performing Lab:[facility] [place], [address] [facility], [place], Phone - [phone], Director - [facility] Notes/Report: Glucose 79 70-99 mg/dL BUN 13 8-27 mg/dL Creatinine 0.99 0.57-1.00 mg/dL eGFR 64 >59 mL/min/1.73 BUN/Creatinine Ratio 13 12-28 Sodium 144 134-144 mmol/L Potassium 3.8 3.5-5.2 mmol/L Chloride 105 96-106 mmol/L Carbon Dioxide, Total 24 20-29 mmol/L Calcium 9.6 8.7-10.3 mg/dL Phosphorus 4.2 3.0-4.3 mg/dL Albumin 4.5 3.9-4.9 g/dL Ambjosefa Abbrev RP10 Default (N ot yet reviewed by provider) Interpretation: Performing Lab:[facility], [address] [facility], Phone - [phone], Director - [facility] Notes/Report: Fermin Nuñez RP10 Default A hand-written panel/profile was received from your office. In accordance with the [facility] Ambiguous Test Code Policy dated May 2003, we have completed your order by using the closest currently or formerly recognized AMA panel. We have assigned Renal Panel (10), Test Code #028495 to this request. If this is not the testing you wished to receive on this specimen, please contact the [facility] Client Inquiry/Technical Services Department to clarify the test order. We appreciate your business. CBC/Diff Ambiguous Default Reviewed date:01/23/2024 11:38:50 AM Interpretation: Performing Lab:[facility] [place], [address] [facility], [place], Phone - [phone], Director - [facility] Notes/Report: WBC 8.6 3.4-10.8 x10E3/uL RBC 4.46 [...] from your office. In accordance with the [facility] Ambiguous Test Code Policy dated May 2003, we have assigned CBC with Differential/Platelet, Test Code #605079 to this request. If this is not the testing you wished to receive on this specimen, please contact the [facility] Client Inquiry/ Technical Services Department to [...] Notes Problem Fibromyalgia (M79.7) Active confirmed Fibromyalgia (758239159) she was advised by her head animal trainer not to take any nonsteroidal anti-inflammato shannon. Problem Hyperlipidemia (E78.5) Active confirmed Hyperlipidemia (61870504) Problem HTN (hypertension) (I10) Active confirmed Hypertension (11262281) blood pressure is well controlled at home. Problem Hypothyroidism (E03.9) Active confirmed Hypothyroidism (08537990) Problem DM2 (diabetes mellitus, type 2) (E11.9) Active confirmed Diabetes mellitus type 2 (disorder) (43295968) management as per endocrinology and primary care. 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 [place] [address] 01/09/2024 EMMA LUISAToo [facility] [address] [place] [address] 10/09/2023 KENNY VALLEJO CHRONIC KIDNEY DISEASE STAGE 3A N18.31 ; DM2 (diabetes mellitus, type 2) E11.9 ; HTN (hypertension) I10 and Fibromyalgia M79.7 [facility] [address] [place] [address] 01/23/2024 EMMA LEONARDO DM2 (diabetes mellitus, type [...] - M79.7) she was advised by her head animal trainer not to take any nonsteroidal anti-inflammatories. 01/23/2024 Fibromyalgia (ICD-10 - M79.7) she was advised by her head animal trainer not to take any nonsteroidal anti-inflammatories. 01/23/2024 [...] PATTERSON, 07/29/2024 11:30:00 AM, [address] [facility] [address], [place], [address], Insurance Providers Payer Name Payer Address Payer Phone Subscriber Number Group Number Insured Name Patient Relationship to Insured Coverage Start Date Coverage End Date [employer] [address] [place] [address] [id number] Mariana Villaseñor Self - patient is the insured MEDICAL (GENERAL) HISTORY Medical History History ICD Code Hyperlipidemia E78.5 Helicobacter positive gastritis K29.70 Hypertension I10 Hypothyroidism E03.9 Diabetes E11.9 Surgical History Surgery Date(Month/Year) back surgery carpal tunnel release 2 c-sections bilateral foot surgery CABG
--- NOTE | 2024-06-03 12:46 | XR_ITS ---
FINAL REPORT CLINICAL HISTORY: PAIN IN LT CLAVICLE x 3 days. No known trauma COMPARISON: None FINDINGS: CERVICAL SPINE 5 views were obtained. There is no acute fracture or malalignment. The vertebral body heights are preserved. There is mild degenerative disc disease at C5-6. Precervical soft tissues are unremarkable. IMPRESSION: Mild degenerative changes without acute process. Reviewed, Interpreted and Dictated by Sherron Zuluaga MD Transcribed by Chaya Gutiérrez Authenticated and [facility]
--- NOTE | 2024-06-03 12:46 | XR_ITS ---
FINAL REPORT CLINICAL HISTORY: PAIN IN LT CLAVICLE x 3 days FINDINGS: 3 views of the left shoulder were obtained. There is no prior exam for comparison. There is no fracture or dislocation. There is mild AC joint degenerative disease. Soft tissues are normal. IMPRESSION: Mild degenerative changes without acute osseous abnormality of the left shoulder. Reviewed, Interpreted and Dictated by Sherron Zuluaga MD Transcribed by Chaya Gutiérrez Authenticated and [facility]
== END 2024-06-03 23:59 | disposition home or self-care (01) ==
LOC: RAD 12:34
PROVIDERS: PCP Internal Medicine Adolescent Medicine; Visit Provider Nurse Practitioner Family
DX: M89.8X1 Other specified disorders of bone, shoulder (principal); R07.89 Other chest pain
CPT/HCPCS: 72050; 73030

== ENCOUNTER 2024-07-16 09:22 | Outpatient (POV) | payer MEDICARE, SELFPAY | END 2024-07-16 23:59 | disposition home or self-care (01) | LOC: SC 09:23 | PROVIDERS: Visit Provider Specialist/Technologist | DX: Z00.00 Encounter for general adult medical examination without abnormal findings (principal) ==

== ENCOUNTER 2025-01-23 08:08 | Outpatient (CLI) | payer MEDICARE, SELFPAY ==
[2025-01-23 08:17] LABS: Microscopic, Urine URINE MICROSCOPIC (MICROSCOPIC)
[2025-01-23 08:31] LABS: Basophils % 0.4 % (0.1-2.0); Eosinophils % 0.1 % (0.1-12.0); Hematocrit 39.9 % (37.0-47.0); Hemoglobin 12.8 g/dL (12.2-16.2); Lymphocytes # 2.2 K/mm3 (0.7-4.5); Lymphocytes % 26.6 % (10-50); Mean Corpuscular HGB Conc 32.1 g/dL (31.8-35.4); Mean Corpuscular Hemoglobin 28.8 pg (27.0-31.2); Mean Corpuscular Volume 89.9 fl (81-99); Mean Platelet Volume 8.7 fl (7.4-10.4); Monocytes # 0.6 K/mm3 (0.1-1.0); Monocytes % 7.7 % (1.7-9.3); Neutrophils # 5.3 K/mm3 (1.8-7.8); Neutrophils % 64.8 % (37.0-80.0); Platelet Count 369 K/mm3 (142-424); Red Blood Count 4.44 M/mm3 (4.20-5.40); Red Cell Distribution Width 12.8 % (11.5-17.5); White Blood Count 8.2 K/mm3 (4.8-10.8)
[2025-01-23 08:49] LABS: Appearance,Urine CLEAR (Clear); Bilirubin,Urine Negative (Negative); Blood, Urine Negative (Negative); Color,Urine YELLOW (Yellow); Glucose,Urine (UA) Negative (Negative); Ketones,Urine Negative (Negative); Leukocyte Esterase,Urine Negative (Negative); Nitrate,Urine Negative (Negative); Protein,Urine Negative (Negative); Urobilinogen,Urine 0.2 EU/dl (0.2)
[2025-01-23 09:22] LABS: RBC,Urine Occasional #/hpf (0-3)
[2025-01-23 09:23] LABS: Squamous Epithelial Cell,Urine Occasional #/hpf (0-5)
[2025-01-23 09:44] LABS: Albumin Level 4.4 g/dl (3.5-5.0); Chloride 106 mmol/L (98-107); Potassium 4.6 mmoL/L (3.5-5.1); Sodium 138 mmol/L (136-145)
[2025-01-23 09:47] LABS: Anion Gap 9.6 mEq/L (5-15); Blood Urea Nitrogen 20 mg/dl (7-17); Carbon Dioxide 27 mmol/L (22.0-30.0); Estimated Glomerular Filt Rate 50 ml/min (>60); GFR (African American) 60 ML/MIN (>60)
[2025-01-23 09:48] LABS: Calcium 9.1 mg/dl (8.4-10.2); Glucose 148 mg/dl (74-100); Phosphorous 5.3 mg/dl (2.5-4.5)
[2025-01-23 09:51] LABS: 25-OH Vitamin D, Total 43.9 ng/mL (30-100)
[2025-01-23 11:53] LABS: Hemoglobin A1C 7.6 % (4.0-6.0)
== END 2025-01-23 23:59 | disposition home or self-care (01) ==
LOC: LAB 08:10
PROVIDERS: PCP Internal Medicine Adolescent Medicine; Visit Provider Physician Assistant
DX: N18.31 Chronic kidney disease, stage 3a (principal)
CPT/HCPCS: 36415; 80069; 81001; 82306; 83036; 85025

== ENCOUNTER 2025-09-11 09:11 | Outpatient (CLI) | payer MEDICARE, SELFPAY ==
[2025-09-11 09:22] LABS: Microscopic, Urine URINE MICROSCOPIC (MICROSCOPIC)
[2025-09-11 09:56] LABS: Bilirubin,Urine Negative (Negative); Color,Urine YELLOW (Yellow); Glucose,Urine (UA) Negative (Negative); Ketones,Urine Negative (Negative); Leukocyte Esterase,Urine Negative (Negative); PH,Urine 6.0 (5.0-8.5); Protein,Urine Negative (Negative); Specific Gravity, Urine 1.015 (1.005-1.030); Urobilinogen,Urine 0.2 EU/dl (0.2)
[2025-09-11 10:32] LABS: Albumin Level 3.7 g/dl (3.5-5.0); Chloride 105 mmol/L (98-107); Potassium 4.6 mmoL/L (3.5-5.1); Sodium 139 mmol/L (136-145)
[2025-09-11 10:35] LABS: Anion Gap 10.6 mEq/L (5-15); Blood Urea Nitrogen 17 mg/dl (7-17); Calcium 8.7 mg/dl (8.4-10.2); Carbon Dioxide 28 mmol/L (22.0-30.0); Creatinine,Serum 1.10 mg/dl (0.52-1.04); Estimated Glomerular Filt Rate 50 ml/min (>60); GFR (African American) 60 ML/MIN (>60); Glucose 108 mg/dl (74-100); Phosphorous 4.6 mg/dl (2.5-4.5)
[2025-09-11 11:08] LABS: Bacteria,Urine 1+ /lpf
[2025-09-11 11:19] LABS: Hemoglobin A1C 9.2 % (4.0-6.0)
== END 2025-09-11 23:59 | disposition home or self-care (01) ==
LOC: LAB 09:13
PROVIDERS: PCP Internal Medicine Adolescent Medicine; Visit Provider Physician Assistant
DX: N18.31 Chronic kidney disease, stage 3a (principal); E11.9 Type 2 diabetes mellitus without complications
CPT/HCPCS: 36415; 80069; 81001; 82043; 82570; 83036; 83970